=== PATIENT | male | born 1965 | race Caucasian/White ===

== ENCOUNTER 2018-10-24 17:52 | Emergency (ER) | payer MEDICAID ==
[~2018-10-24] VITALS: Ht 165.1 cm; Wt 103.0 kg
[~2018-10-24 17:52] MED LIST: AZIT250T PO
[2018-10-24] MEDS ORDERED: normal saline 1000ML IV soln IVB ONE (19:45)
[2018-10-24 20:22] VITALS: BP 137/88
[2018-10-24 20:27] LABS: BASOPHILS # (AUTO) 0.1 X10'3 (0-0.2); EOSINOPHILS # (AUTO) 0.1 X10'3 (0-0.9); LYMPHOCYTES # (AUTO) 1.9 X10'3 (1.1-4.8); MONOCYTES # (AUTO) 0.8 X10'3 (0-0.9)
[2018-10-24 20:29] LABS: BASOPHILS % (AUTO) 1.5 % (0-1); EOSINOPHILS % (AUTO) 0.8 % (0-6); HEMATOCRIT 48.7 % (42.0-52.0); HEMOGLOBIN 16.1 g/dl (14.0-17.9); LYMPHOCYTES % (AUTO) 22.5 % (21-51); MEAN CORPUSCULAR HEMOGLOBIN 28.2 PG (27.0-31.0); MEAN CORPUSCULAR VOLUME 85.4 FL (78-98); MEAN PLATELET VOLUME 8.7 FL (7.4-10.4); MONOCYTES % (AUTO) 9.3 % (2-12); NEUTROPHILS # (AUTO) 5.6 X10'3 (1.8-7.7); NEUTROPHILS % (AUTO) 65.9 % (42-75); PLATELET COUNT 194 X10'3 (140-440); RED BLOOD COUNT 5.71 X10'6 (4.70-6.10); RED CELL DISTRIBUTION WIDTH 13.7 % (11.5-14.5); WHITE BLOOD COUNT 8.5 X10'3 (4.5-11.0)
[2018-10-24 20:34] LABS: ALANINE AMINOTRANSFERASE 26 U/L (12-78); ALBUMIN 3.9 G/DL (3.4-5.0); ALBUMIN/GLOBULIN RATIO 0.9 (1.1-1.5); ALKALINE PHOSPHATASE 70 IU/L (46-116); ANION GAP 8 (8-16); ASPARTATE AMINO TRANSFERASE 21 U/L (10-37); BILIRUBIN,TOTAL 0.7 MG/DL (0.1-1.0); BLOOD UREA NITROGEN 16 MG/DL (7-18); BUN/CREATININE RATIO 9.5 (5.4-32.0); CALCIUM 9.3 MG/DL (8.5-10.1); CHLORIDE 105 MMOL/L (99-107); CREATININE 1.68 MG/DL (0.60-1.10); ETHANOL < 0.010 GM/DL (0.0-0.010); GLUCOSE 90 MG/DL (70-104); POTASSIUM 4.8 MMOL/L (3.5-5.1); SODIUM 141 MMOL/L (135-145); TOTAL CARBON DIOXIDE 28.4 MMOL/L (24-32); TOTAL PROTEIN 8.2 G/DL (6.4-8.2); eGFR 43 ML/MIN
--- NOTE | 2018-10-24 20:52 | NUR ---
pt iv fluid finshed,iv site flushed with 10 cc n.s.pt denies any concern.
[2018-10-24 21:53] LABS: CLARITY,URINE CLEAR (Clear); COLOR,URINE YELLOW (Yellow); GLUCOSE, URINE NEGATIVE (Neg); KETONES,URINE TRACE mg/dl (Neg); LEUKOCYTE ESTERASE ,URINE NEGATIVE (Neg); NITRITES, URINE NEGATIVE (Neg); OCCULT BLOOD,URINE NEGATIVE (Neg); PH,URINE 5.5 (4.8-8.0); PROTEIN,URINE NEGATIVE (Neg); UROBILINOGEN,URINE 0.2 E.U/dL (0.2-1.0)
[2018-10-24 21:55] LABS: UA COLLECTION TYPE CLN CATCH MIDSTREAM
[2018-10-24 21:58] LABS: URINE AMPHETAMINE SCREEN NEGATIVE (Neg); URINE BARBITUATE SCREEN NEGATIVE (Neg); URINE BENZODIAZEPINES SCREEN NEGATIVE (Neg); URINE CANNABINOID SCREEN NEGATIVE (Neg); URINE COCAINE SCREEN NEGATIVE (Neg); URINE METHADONE SCREEN NEGATIVE (Neg); URINE OPIATE SCREEN NEGATIVE (Neg); URINE PHENCYCLIDINE SCREEN NEGATIVE (Neg)
== END 2018-10-24 22:11 | disposition home or self-care (01) ==
LOC: ER 17:52
DX: R55 Syncope and collapse (principal); E78.00 Pure hypercholesterolemia, unspecified; I10 Essential (primary) hypertension; J44.9 Chronic obstructive pulmonary disease, unspecified; G89.29 Other chronic pain; F41.9 Anxiety disorder, unspecified; Z56.0 Unemployment, unspecified; Z98.890 Other specified postprocedural states; Z88.0 Allergy status to penicillin; Z88.8 Allergy status to other drugs, medicaments and biological substances; Z79.2 Long term (current) use of antibiotics
CPT/HCPCS: 36415; 80053; 80305; 80320; 81003; 85025; 96360; 99283; J7030

== ENCOUNTER 2019-04-25 18:09 | Emergency (ER) | payer MEDICAID ==
[~2019-04-25] VITALS: Ht 165.1 cm; Wt 107.8 kg
[2019-04-25 18:12] VITALS: BP 149/93
[2019-04-25] MEDS ORDERED: SULF1TAB49 PO (19:09)
[2019-04-25] MEDS ORDERED: ketorolac tromethamine 15mg/ml inj. IM ONE (19:10)
[2019-04-25] MEDS ORDERED: TETanus/Pertussis (Acell)/Diphther VAC/PF (Tdap-Adult) 0.5ml syringe IMVAC ONE (19:15)
== END 2019-04-25 19:55 | disposition home or self-care (01) ==
LOC: ER 18:10
DX: S90.862A Insect bite (nonvenomous), left foot, initial encounter (principal); L03.116 Cellulitis of left lower limb; E78.00 Pure hypercholesterolemia, unspecified; I10 Essential (primary) hypertension; J44.9 Chronic obstructive pulmonary disease, unspecified; F41.9 Anxiety disorder, unspecified; Z90.49 Acquired absence of other specified parts of digestive tract; Z98.890 Other specified postprocedural states; Z72.89 Other problems related to lifestyle; Z56.0 Unemployment, unspecified; Z88.0 Allergy status to penicillin; Z88.8 Allergy status to other drugs, medicaments and biological substances; Z79.899 Other long term (current) drug therapy; W57.XXXA Bitten or stung by nonvenomous insect and other nonvenomous arthropods, initial encounter; Y93.89 Activity, other specified; Y92.89 Other specified places as the place of occurrence of the external cause; Y99.8 Other external cause status
CPT/HCPCS: 90471; 90715; 96372; 99284; J1885

== ENCOUNTER 2019-07-10 20:19 | Emergency (ER) | payer MEDICAID ==
[~2019-07-10] VITALS: Ht 165.1 cm; Wt 90.9 kg
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
[2019-07-10] MEDS ORDERED: ketorolac tromethamine 15mg/ml inj. IM ONE (20:40)
[2019-07-10 21:33] VITALS: BP 114/89
== END 2019-07-10 21:36 | disposition home or self-care (01) ==
LOC: ER 20:20
DX: M25.572 Pain in left ankle and joints of left foot (principal); M54.5 Low back pain; M25.562 Pain in left knee; M25.561 Pain in right knee; M25.522 Pain in left elbow; E78.00 Pure hypercholesterolemia, unspecified; I10 Essential (primary) hypertension; J44.9 Chronic obstructive pulmonary disease, unspecified; G89.29 Other chronic pain; F41.9 Anxiety disorder, unspecified; Z90.49 Acquired absence of other specified parts of digestive tract; Z98.890 Other specified postprocedural states; Z56.0 Unemployment, unspecified; Z88.0 Allergy status to penicillin; Z88.8 Allergy status to other drugs, medicaments and biological substances; Z79.2 Long term (current) use of antibiotics
CPT/HCPCS: 73610; 96372; 99283; J1885

== ENCOUNTER 2019-08-10 21:54 | Emergency (ER) | payer MEDICAID ==
[~2019-08-10] VITALS: Ht 317.5 cm; Wt 90.9 kg
[2019-08-10 22:04] VITALS: BP 155/98
[2019-08-10] MEDS ORDERED: ondansetron 4mg rapidly disintigrating tab PO ONE (22:40)
[2019-08-10] MEDS ORDERED: HYDROcodone/acetaminophen 5mg/325mg tablet PO ONE (22:40)
[2019-08-10] MEDS ORDERED: ketorolac tromethamine 15mg/ml inj. IM ONE (22:45)
[2019-08-10] MEDS ORDERED: IBUP-1984 PO (23:32)
== END 2019-08-11 | disposition home or self-care (01) ==
LOC: ER 21:54
DX: M25.512 Pain in left shoulder (principal); M25.522 Pain in left elbow; E78.00 Pure hypercholesterolemia, unspecified; I10 Essential (primary) hypertension; J44.9 Chronic obstructive pulmonary disease, unspecified; G89.29 Other chronic pain; Z56.0 Unemployment, unspecified; Z90.49 Acquired absence of other specified parts of digestive tract; Z98.890 Other specified postprocedural states; Z88.8 Allergy status to other drugs, medicaments and biological substances; Z88.0 Allergy status to penicillin
CPT/HCPCS: 73030; 73080; 96372; 99284; J1885

== ENCOUNTER 2019-09-15 18:14 | Emergency (ER) | payer MEDICAID ==
[~2019-09-15] VITALS: Ht 165.1 cm; Wt 102.0 kg
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
[2019-09-15] MEDS ORDERED: normal saline 1000ML IV soln IVB ONE (19:40)
[2019-09-15] MEDS ORDERED: ketorolac trometh. 30mg/ml inj. IM ONE (20:15)
[2019-09-15] MEDS ORDERED: ketorolac tromethamine 15mg/ml inj. IM ONE (20:15)
[2019-09-15 20:21] LABS: BASOPHILS # (AUTO) 0.1 X10'3 (0-0.2); MEAN CORPUSCULAR HEMOGLOBIN 29.3 PG (27.0-31.0); MONOCYTES # (AUTO) 0.5 X10'3 (0-0.9)
[2019-09-15 20:23] LABS: BASOPHILS % (AUTO) 0.8 % (0-1); EOSINOPHILS # (AUTO) 0.1 X10'3 (0-0.9); EOSINOPHILS % (AUTO) 0.7 % (0-6); HEMATOCRIT 44.4 % (42.0-52.0); HEMOGLOBIN 14.8 g/dl (14.0-17.9); LYMPHOCYTES # (AUTO) 1.4 X10'3 (1.1-4.8); LYMPHOCYTES % (AUTO) 17.4 % (21-51); MEAN CORPUSCULAR HGB CONC 33.4 g/dL (33.0-36.5); MEAN CORPUSCULAR VOLUME 87.9 FL (78-98); MEAN PLATELET VOLUME 8.6 FL (7.4-10.4); MONOCYTES % (AUTO) 5.8 % (2-12); NEUTROPHILS % (AUTO) 75.3 % (42-75); PLATELET COUNT 230 X10'3 (140-440); RED BLOOD COUNT 5.05 X10'6 (4.70-6.10); RED CELL DISTRIBUTION WIDTH 13.5 % (11.5-14.5)
[2019-09-15 20:45] LABS: ALANINE AMINOTRANSFERASE 17 U/L (12-78); ALBUMIN 3.6 G/DL (3.4-5.0); ALBUMIN/GLOBULIN RATIO 0.8 (1.1-1.5); ALKALINE PHOSPHATASE 73 IU/L (46-116); ANION GAP 9 (8-16); ASPARTATE AMINO TRANSFERASE 13 U/L (10-37); BILIRUBIN,TOTAL 0.3 MG/DL (0.1-1.0); BLOOD UREA NITROGEN 11 MG/DL (7-18); BUN/CREATININE RATIO 7.4 (5.4-32.0); CALCIUM 9.1 MG/DL (8.5-10.1); CHLORIDE 110 MMOL/L (99-107); CREATININE 1.49 MG/DL (0.60-1.10); GLUCOSE 114 MG/DL (70-104); POTASSIUM 4.9 MMOL/L (3.5-5.1); SODIUM 143 MMOL/L (135-145); TOTAL CARBON DIOXIDE 24.1 MMOL/L (24-32); TOTAL PROTEIN 8.1 G/DL (6.4-8.2); eGFR 49 ML/MIN
[2019-09-15 21:17] VITALS: BP 139/91
== END 2019-09-15 21:50 | disposition home or self-care (01) ==
LOC: ER 18:14
DX: S09.90XA Unspecified injury of head, initial encounter (principal); E86.0 Dehydration; R55 Syncope and collapse; M54.2 Cervicalgia; E78.00 Pure hypercholesterolemia, unspecified; I10 Essential (primary) hypertension; J44.9 Chronic obstructive pulmonary disease, unspecified; F41.9 Anxiety disorder, unspecified; F20.9 Schizophrenia, unspecified; G89.29 Other chronic pain; Z90.49 Acquired absence of other specified parts of digestive tract; Z98.890 Other specified postprocedural states; Z56.0 Unemployment, unspecified; Z88.0 Allergy status to penicillin; Z88.8 Allergy status to other drugs, medicaments and biological substances; Z79.899 Other long term (current) drug therapy; V87.8XXA Person injured in other specified noncollision transport accidents involving motor vehicle (traffic), initial encounter; Y93.89 Activity, other specified; Y92.488 Other paved roadways as the place of occurrence of the external cause; Y99.8 Other external cause status
CPT/HCPCS: 36415; 72040; 80053; 85025; 93005; 96360; 96372; 99285; J1885; J7030

== ENCOUNTER 2019-12-13 19:40 | Emergency (ER) | payer MEDICAID ==
[~2019-12-13] VITALS: Ht 165.1 cm; Wt 90.9 kg
[2019-12-13] MEDS ORDERED: ketorolac tromethamine 15mg/ml inj. IM ONE (20:30)
[2019-12-13] MEDS ORDERED: cyclobenzaprine 10mg tablet PO ONE (20:30)
[2019-12-13] MEDS ORDERED: IBUP-1984 PO (20:34)
[2019-12-13] MEDS ORDERED: ORPH100T2 PO (20:34)
[2019-12-13 21:02] VITALS: BP 129/89
== END 2019-12-13 21:04 | disposition home or self-care (01) ==
LOC: ER 19:40
DX: G89.29 Other chronic pain (principal); M25.512 Pain in left shoulder; E78.00 Pure hypercholesterolemia, unspecified; I10 Essential (primary) hypertension; J44.9 Chronic obstructive pulmonary disease, unspecified; F41.9 Anxiety disorder, unspecified; F20.9 Schizophrenia, unspecified; Z90.49 Acquired absence of other specified parts of digestive tract; Z98.890 Other specified postprocedural states; Z56.0 Unemployment, unspecified; Z88.0 Allergy status to penicillin; Z88.8 Allergy status to other drugs, medicaments and biological substances; Z79.2 Long term (current) use of antibiotics; Z79.899 Other long term (current) drug therapy
CPT/HCPCS: 96372; 99283; J1885

== ENCOUNTER 2020-04-27 09:38 | Emergency (ER) | payer MEDICAID ==
[~2020-04-27] VITALS: Ht 165.1 cm; Wt 125.0 kg
[~2020-04-27 09:38] MED LIST changes: +ORPH100T2 PO
[2020-04-27 09:48] VITALS: BP 154/97
--- NOTE | 2020-04-27 10:03 | NUR ---
TO XRAY VIA WHEELCHAIR
[2020-04-27] MEDS ORDERED: NAPR-56 PO (10:17)
[2020-04-27] MEDS ORDERED: DICL100G15 TOP (10:17)
== END 2020-04-27 10:48 | disposition home or self-care (01) ==
LOC: ER 09:38
DX: M17.0 Bilateral primary osteoarthritis of knee (principal); G89.29 Other chronic pain; E78.00 Pure hypercholesterolemia, unspecified; I10 Essential (primary) hypertension; J44.9 Chronic obstructive pulmonary disease, unspecified; Z88.0 Allergy status to penicillin; Z88.8 Allergy status to other drugs, medicaments and biological substances; Z91.013 Allergy to seafood; Z79.2 Long term (current) use of antibiotics; Z79.899 Other long term (current) drug therapy; Z90.49 Acquired absence of other specified parts of digestive tract; Z98.890 Other specified postprocedural states; Z56.0 Unemployment, unspecified
CPT/HCPCS: 73564; 99284

== ENCOUNTER 2020-07-28 08:28 | Emergency (ER) | payer MEDICAID ==
[~2020-07-28] VITALS: Ht 165.1 cm; Wt 104.5 kg
[~2020-07-28 08:28] MED LIST changes: +DICL100G15 TOP
[2020-07-28] MEDS ORDERED: orphenadrine citrate 60mg/2ml inj. IM ONE (08:35)
[2020-07-28] MEDS ORDERED: ketorolac trometh inj. 60 MG/2 ML VIAL IM ONE (08:35)
[2020-07-28] MEDS ORDERED: ondansetron 4mg rapidly disintigrating tab PO ONE (08:35)
[2020-07-28] MEDS ORDERED: acetaminophen 325mg tablet PO ONE (08:35)
[2020-07-28] MEDS ORDERED: HYDROcodone/acetaminophen 5mg/325mg tablet PO ONE (08:35)
[2020-07-28] MEDS ORDERED: ACET-1025 PO (09:28)
[2020-07-28] MEDS ORDERED: MELO-100 PO (09:28)
[2020-07-28] MEDS ORDERED: HYDR-3965 PO (09:28)
[2020-07-28] MEDS ORDERED: CYCL-1 PO (09:28)
[2020-07-28 10:48] VITALS: BP 153/88
== END 2020-07-28 10:51 | disposition home or self-care (01) ==
LOC: ER 08:29
DX: M25.551 Pain in right hip (principal); E78.00 Pure hypercholesterolemia, unspecified; I10 Essential (primary) hypertension; J44.9 Chronic obstructive pulmonary disease, unspecified; G89.29 Other chronic pain; F41.9 Anxiety disorder, unspecified; F20.9 Schizophrenia, unspecified; Z90.49 Acquired absence of other specified parts of digestive tract; Z98.890 Other specified postprocedural states; Z56.0 Unemployment, unspecified; Z88.0 Allergy status to penicillin; Z88.8 Allergy status to other drugs, medicaments and biological substances; Z79.2 Long term (current) use of antibiotics; Z79.899 Other long term (current) drug therapy
CPT/HCPCS: 96372; 99284; J1885; J2360

== ENCOUNTER 2020-08-07 07:38 | Emergency (ER) | payer MEDICAID ==
[~2020-08-07] VITALS: Ht 165.1 cm; Wt 125.0 kg
[~2020-08-07 07:38] MED LIST changes: +CYCL-1 PO; +HYDR-3965 PO; +MELO-100 PO
[2020-08-07] MEDS ORDERED: acetaminophen 325mg tablet PO ONE (07:50)
== END 2020-08-07 08:03 | disposition home or self-care (01) ==
LOC: ER 07:39
DX: M79.661 Pain in right lower leg (principal); M79.662 Pain in left lower leg; R11.10 Vomiting, unspecified; E78.00 Pure hypercholesterolemia, unspecified; I10 Essential (primary) hypertension; G89.29 Other chronic pain; F41.9 Anxiety disorder, unspecified; F20.9 Schizophrenia, unspecified; Z59.0 Homelessness; Z90.49 Acquired absence of other specified parts of digestive tract; Z98.890 Other specified postprocedural states; Z56.0 Unemployment, unspecified; Z88.8 Allergy status to other drugs, medicaments and biological substances; Z88.0 Allergy status to penicillin; Z79.899 Other long term (current) drug therapy
CPT/HCPCS: 99283

== ENCOUNTER 2020-08-08 02:22 | Emergency (ER) | payer MEDICAID ==
[~2020-08-08] VITALS: Ht 165.1 cm; Wt 125.0 kg
[2020-08-08 02:24] VITALS: BP 135/92
[2020-08-08] MEDS ORDERED: ibuprofen 200mg tablet PO ONE (03:35)
[2020-08-08] MEDS ORDERED: acetaminophen 325mg tablet PO ONE (03:35)
== END 2020-08-08 04:01 | disposition home or self-care (01) ==
LOC: ER 02:22
DX: S80.01XA Contusion of right knee, initial encounter (principal); R07.89 Other chest pain; E78.00 Pure hypercholesterolemia, unspecified; J44.9 Chronic obstructive pulmonary disease, unspecified; G89.29 Other chronic pain; Z90.49 Acquired absence of other specified parts of digestive tract; Z98.890 Other specified postprocedural states; Z56.0 Unemployment, unspecified; Z59.0 Homelessness; Z79.2 Long term (current) use of antibiotics; Z79.899 Other long term (current) drug therapy; Z88.0 Allergy status to penicillin; Z88.8 Allergy status to other drugs, medicaments and biological substances; Z91.013 Allergy to seafood; Y04.0XXA Assault by unarmed brawl or fight, initial encounter; Y93.89 Activity, other specified; Y92.89 Other specified places as the place of occurrence of the external cause; Y99.8 Other external cause status
CPT/HCPCS: 99283

== ENCOUNTER 2020-08-08 16:31 | Emergency (ER) | payer MEDICAID ==
[~2020-08-08] VITALS: Ht 165.1 cm; Wt 97.7 kg
[2020-08-08] MEDS ORDERED: normal saline 1000ml 1,000 ML IV ONE (17:35)
[2020-08-08 18:16] LABS: BASOPHILS # (AUTO) 0.1 X10'3 (0-0.2); HEMATOCRIT 44.1 % (42.0-52.0); HEMOGLOBIN 14.7 g/dl (14.0-17.9)
[2020-08-08 18:18] LABS: BASOPHILS % (AUTO) 1.1 % (0-1); EOSINOPHILS # (AUTO) 0.1 X10'3 (0-0.9); EOSINOPHILS % (AUTO) 0.9 % (0-6); LYMPHOCYTES % (AUTO) 23.8 % (21-51); MEAN CORPUSCULAR HEMOGLOBIN 28.4 PG (27.0-31.0); MEAN CORPUSCULAR HGB CONC 33.2 g/dL (33.0-36.5); MEAN CORPUSCULAR VOLUME 85.4 FL (78-98); MEAN PLATELET VOLUME 9.6 FL (7.4-10.4); MONOCYTES % (AUTO) 11.6 % (2-12); NEUTROPHILS # (AUTO) 5.2 X10'3 (1.8-7.7); NEUTROPHILS % (AUTO) 62.6 % (42-75); PLATELET COUNT 207 X10'3 (140-440); RED BLOOD COUNT 5.17 X10'6 (4.70-6.10); WHITE BLOOD COUNT 8.3 X10'3 (4.5-11.0)
[2020-08-08] MEDS ORDERED: proCHLORperazine 10 MG/2 ml inj IV ONE (18:45)
[2020-08-08 19:24] VITALS: BP 142/86
[2020-08-08 19:36] LABS: ALANINE AMINOTRANSFERASE 16 U/L (12-78); ALBUMIN/GLOBULIN RATIO 0.8 (1.1-1.5); ALKALINE PHOSPHATASE 82 IU/L (46-116); ANION GAP 7 (8-16); ASPARTATE AMINO TRANSFERASE 15 U/L (10-37); BILIRUBIN,TOTAL 0.4 MG/DL (0.1-1.0); BLOOD UREA NITROGEN 16 MG/DL (7-18); BUN/CREATININE RATIO 10.3 (5.4-32.0); CALCIUM 8.4 MG/DL (8.5-10.1); CHLORIDE 106 MMOL/L (99-107); CREATININE 1.56 MG/DL (0.60-1.10); GLUCOSE 93 MG/DL (70-104); POTASSIUM 4.3 MMOL/L (3.5-5.1); SODIUM 140 MMOL/L (135-145); TOTAL CARBON DIOXIDE 26.6 MMOL/L (24-32); TOTAL PROTEIN 6.8 G/DL (6.4-8.2); eGFR 46 ML/MIN
== END 2020-08-08 21:00 | disposition home or self-care (01) ==
LOC: ER 16:31
DX: T67.5XXA Heat exhaustion, unspecified, initial encounter (principal); E78.00 Pure hypercholesterolemia, unspecified; I10 Essential (primary) hypertension; J44.9 Chronic obstructive pulmonary disease, unspecified; G89.29 Other chronic pain; Z90.49 Acquired absence of other specified parts of digestive tract; Z56.0 Unemployment, unspecified; Z59.0 Homelessness; Z88.0 Allergy status to penicillin; Z88.8 Allergy status to other drugs, medicaments and biological substances; Z91.013 Allergy to seafood; Z79.2 Long term (current) use of antibiotics; Z79.899 Other long term (current) drug therapy; X30.XXXA Exposure to excessive natural heat, initial encounter; Y93.89 Activity, other specified; Y92.832 Beach as the place of occurrence of the external cause; Y99.8 Other external cause status
CPT/HCPCS: 36415; 71045; 80053; 83735; 83880; 84484; 85025; 93005; 96361; 96374; 99285; J0780; J7030

== ENCOUNTER 2020-09-24 20:40 | Emergency (ER) | payer MEDICAID ==
[~2020-09-24] VITALS: Ht 165.1 cm; Wt 125.0 kg
[~2020-09-24 20:40] MED LIST changes: -HYDR-3965 PO
[2020-09-24 20:44] VITALS: BP 156/101
== END 2020-09-24 21:59 | disposition home or self-care (01) ==
LOC: ER 20:40
DX: S56.911A Strain of unspecified muscles, fascia and tendons at forearm level, right arm, initial encounter (principal); M79.601 Pain in right arm; E78.00 Pure hypercholesterolemia, unspecified; I10 Essential (primary) hypertension; J44.9 Chronic obstructive pulmonary disease, unspecified; G89.29 Other chronic pain; F41.9 Anxiety disorder, unspecified; F20.9 Schizophrenia, unspecified; Z90.49 Acquired absence of other specified parts of digestive tract; Z98.890 Other specified postprocedural states; Z56.0 Unemployment, unspecified; Z59.0 Homelessness; Z88.0 Allergy status to penicillin; Z88.8 Allergy status to other drugs, medicaments and biological substances; Z79.2 Long term (current) use of antibiotics; Z79.899 Other long term (current) drug therapy; W50.2XXA Accidental twist by another person, initial encounter; Y93.89 Activity, other specified; Y92.89 Other specified places as the place of occurrence of the external cause; Y99.8 Other external cause status
CPT/HCPCS: 73030; 73080; 73110; 99284

== ENCOUNTER 2020-10-23 19:20 | Emergency (ER) | payer MEDICAID ==
[~2020-10-23] VITALS: Ht 165.1 cm; Wt 98.7 kg
[2020-10-23 20:43] LABS: BASOPHILS # (AUTO) 0.1 X10'3 (0-0.2); BASOPHILS % (AUTO) 0.5 % (0-1); EOSINOPHILS % (AUTO) 0.3 % (0-6); HEMATOCRIT 48.9 % (42.0-52.0); LYMPHOCYTES # (AUTO) 1.2 X10'3 (1.1-4.8); LYMPHOCYTES % (AUTO) 11.2 % (21-51); MEAN CORPUSCULAR HEMOGLOBIN 27.8 PG (27.0-31.0); MEAN CORPUSCULAR HGB CONC 32.7 g/dL (33.0-36.5); MEAN PLATELET VOLUME 8.9 FL (7.4-10.4); MONOCYTES # (AUTO) 0.9 X10'3 (0-0.9); NEUTROPHILS # (AUTO) 8.9 X10'3 (1.8-7.7); PLATELET COUNT 233 X10'3 (140-440); RED BLOOD COUNT 5.75 X10'6 (4.70-6.10); RED CELL DISTRIBUTION WIDTH 13.9 % (11.5-14.5); WHITE BLOOD COUNT 11.1 X10'3 (4.5-11.0)
[2020-10-23 20:44] LABS: CLARITY,URINE CLEAR (Clear); COLOR,URINE YELLOW (Yellow); GLUCOSE, URINE NEGATIVE (Neg); KETONES,URINE TRACE mg/dl (Neg); LEUKOCYTE ESTERASE ,URINE NEGATIVE (Neg); NITRITES, URINE NEGATIVE (Neg); OCCULT BLOOD,URINE NEGATIVE (Neg); PROTEIN,URINE 100 mg/dl (Neg)
[2020-10-23 20:53] LABS: UA COLLECTION TYPE CLN CATCH MIDSTREAM
[2020-10-23 20:54] LABS: BACTERIA,URINE FEW /HPF (Neg); MUCUS STRANDS FEW /LPF (Neg); RBC,URINE 0-2 /HPF (0-2); SQUAMOUS EPITHELIAL CELL,UR FEW /LPF (FEW); WBC,URINE NONE SEEN /HPF (0-4)
[2020-10-23 20:55] LABS: HYALINE CASTS 0-3 /LPF (NEGATIVE)
[2020-10-23 20:59] LABS: ALANINE AMINOTRANSFERASE 22 U/L (12-78); ALBUMIN 4.2 G/DL (3.4-5.0); ALBUMIN/GLOBULIN RATIO 0.9 (1.1-1.5); ALKALINE PHOSPHATASE 81 IU/L (46-116); ANION GAP 11 (8-16); ASPARTATE AMINO TRANSFERASE 17 U/L (10-37); BILIRUBIN,TOTAL 0.9 MG/DL (0.1-1.0); BLOOD UREA NITROGEN 11 MG/DL (7-18); BUN/CREATININE RATIO 5.7 (5.4-32.0); CALCIUM 9.1 MG/DL (8.5-10.1); CHLORIDE 105 MMOL/L (99-107); CREATININE 1.94 MG/DL (0.60-1.10); GLUCOSE 117 MG/DL (70-104); POTASSIUM 4.2 MMOL/L (3.5-5.1); SODIUM 142 MMOL/L (135-145); TOTAL CARBON DIOXIDE 26.5 MMOL/L (24-32); eGFR 36 ML/MIN
[2020-10-23 21:07] LABS: LIPASE 116 U/L (73-393)
[2020-10-24] MEDS ORDERED: dexamethasone sod phosphate 10mg/ml inj PO STA (01:34)
[2020-10-24] MEDS ORDERED: ketorolac tromethamine 15mg/ml inj. IM ONE (01:35)
[2020-10-24] MEDS ORDERED: ALBU8.5H17 IH (01:36)
[2020-10-24 02:04] VITALS: BP 130/97
== END 2020-10-24 02:05 | disposition home or self-care (01) ==
LOC: ER 19:20
DX: M79.10 Myalgia, unspecified site (principal); R06.02 Shortness of breath; R06.89 Other abnormalities of breathing; E78.00 Pure hypercholesterolemia, unspecified; I10 Essential (primary) hypertension; J44.9 Chronic obstructive pulmonary disease, unspecified; G89.29 Other chronic pain; Z98.890 Other specified postprocedural states; Z90.49 Acquired absence of other specified parts of digestive tract; Z59.0 Homelessness; Z56.0 Unemployment, unspecified; Z88.8 Allergy status to other drugs, medicaments and biological substances; Z88.0 Allergy status to penicillin; Z79.2 Long term (current) use of antibiotics; Z79.899 Other long term (current) drug therapy
CPT/HCPCS: 36415; 71045; 80053; 81001; 83690; 83880; 84484; 85025; 93005; 96372; 99285; J1100; J1885

== ENCOUNTER 2020-10-27 12:00 | Emergency (ER) | payer MEDICAID ==
[~2020-10-27] VITALS: Ht 166.4 cm; Wt 125.0 kg
[~2020-10-27 12:00] MED LIST changes: +ALBU8.5H17 IH
[2020-10-27 12:05] VITALS: BP 124/74
== END 2020-10-27 20:06 | disposition left against medical advice (07) ==
LOC: ER 12:00
DX: T63.441A Toxic effect of venom of bees, accidental (unintentional), initial encounter (principal); Z53.21 Procedure and treatment not carried out due to patient leaving prior to being seen by health care provider; X58.XXXA Exposure to other specified factors, initial encounter; Y93.9 Activity, unspecified; Y92.9 Unspecified place or not applicable; Y99.9 Unspecified external cause status

== ENCOUNTER → 2020-11-01 | Emergency (ER) | payer MEDICAID ==
[~2020-11-01] VITALS: Ht 165.1 cm; Wt 125.0 kg
[~2020-11-01] MED LIST changes: +IBUP-1984 PO; +NAPR-56 PO; +PRED20TA PO
[2020-11-01 14:21] VITALS: BP 131/85
== END | disposition home or self-care (01) ==
LOC: ER 13:40
DX: M10.9 Gout, unspecified (principal); M81.0 Age-related osteoporosis without current pathological fracture; E78.00 Pure hypercholesterolemia, unspecified; I10 Essential (primary) hypertension; J44.9 Chronic obstructive pulmonary disease, unspecified; G89.29 Other chronic pain; Z90.49 Acquired absence of other specified parts of digestive tract; Z56.0 Unemployment, unspecified; Z59.0 Homelessness; Z98.890 Other specified postprocedural states; Z88.0 Allergy status to penicillin; Z88.8 Allergy status to other drugs, medicaments and biological substances; Z79.2 Long term (current) use of antibiotics; Z79.899 Other long term (current) drug therapy
CPT/HCPCS: 99283

== ENCOUNTER 2020-11-14 00:38 | Emergency (ER) | payer MEDICAID ==
[~2020-11-14] VITALS: Ht 165.1 cm; Wt 125.0 kg
[~2020-11-14 00:38] MED LIST changes: -IBUP-1984 PO; -NAPR-56 PO; -PRED20TA PO
[2020-11-14] MEDS ORDERED: naproxen 500mg tablet PO ONE (04:30)
[2020-11-14] MEDS ORDERED: NAPR-56 PO (04:49)
[2020-11-14] MEDS ORDERED: CYCL-1 PO (04:49)
[2020-11-14] MEDS ORDERED: cyclobenzaprine 10mg tablet PO ONE (04:50)
[2020-11-14 05:07] VITALS: BP 136/82
== END 2020-11-14 05:09 | disposition home or self-care (01) ==
LOC: ER 00:38
DX: M54.5 Low back pain (principal); Z20.822 Contact with and (suspected) exposure to COVID-19; R11.2 Nausea with vomiting, unspecified; R06.02 Shortness of breath; E78.00 Pure hypercholesterolemia, unspecified; I10 Essential (primary) hypertension; J44.9 Chronic obstructive pulmonary disease, unspecified; G89.29 Other chronic pain; F17.200 Nicotine dependence, unspecified, uncomplicated; Z98.890 Other specified postprocedural states; Z98.49 Cataract extraction status, unspecified eye; Z56.0 Unemployment, unspecified; Z59.0 Homelessness; Z88.0 Allergy status to penicillin; Z88.8 Allergy status to other drugs, medicaments and biological substances; Z79.2 Long term (current) use of antibiotics; Z79.899 Other long term (current) drug therapy
CPT/HCPCS: 71045; 87635; 99284; C9803

== ENCOUNTER 2021-01-01 12:52 | Emergency (ER) | payer MEDICAID ==
[~2021-01-01] VITALS: Ht 167.6 cm; Wt 125.0 kg
[2021-01-01 12:57] VITALS: BP 112/73
[2021-01-01] MEDS ORDERED: ketorolac tromethamine 15mg/ml inj. IM ONE (15:45)
[2021-01-01] MEDS ORDERED: IBUP-1984 PO (16:58)
--- NOTE | 2021-01-01 17:10 | NUR ---
[facility] ETA [phone]
== END 2021-01-01 17:50 | disposition home or self-care (01) ==
LOC: ER 12:52
DX: M25.561 Pain in right knee (principal); R26.89 Other abnormalities of gait and mobility; E78.00 Pure hypercholesterolemia, unspecified; I10 Essential (primary) hypertension; G89.29 Other chronic pain; J44.9 Chronic obstructive pulmonary disease, unspecified; Z90.49 Acquired absence of other specified parts of digestive tract; Z98.890 Other specified postprocedural states; Z56.0 Unemployment, unspecified; Z59.00 Homelessness unspecified; Z88.0 Allergy status to penicillin; Z88.8 Allergy status to other drugs, medicaments and biological substances; Z79.2 Long term (current) use of antibiotics; Z79.899 Other long term (current) drug therapy
CPT/HCPCS: 29505; 73564; 93971; 96372; 99284; J1885

== ENCOUNTER 2021-01-14 19:56 | Emergency (ER) | payer MEDICAID ==
[~2021-01-14] VITALS: Ht 165.1 cm; Wt 107.5 kg
[2021-01-14 20:00] VITALS: BP 161/94
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
[2021-01-14] MEDS ORDERED: HYDROcodone/acetaminophen 5mg/325mg tablet PO ONE (20:40)
[2021-01-14] MEDS ORDERED: HYDR-3965 PO (20:40)
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
== END 2021-01-14 22:17 | disposition home or self-care (01) ==
LOC: EEVIPCON 19:57 → ER 19:57
DX: S80.01XA Contusion of right knee, initial encounter (principal); S70.01XA Contusion of right hip, initial encounter; R06.02 Shortness of breath; R05.9 Cough, unspecified; R10.84 Generalized abdominal pain; R11.2 Nausea with vomiting, unspecified; M25.561 Pain in right knee; M25.551 Pain in right hip; E78.00 Pure hypercholesterolemia, unspecified; I10 Essential (primary) hypertension; J44.9 Chronic obstructive pulmonary disease, unspecified; G89.29 Other chronic pain; F41.9 Anxiety disorder, unspecified; F20.9 Schizophrenia, unspecified; Z90.49 Acquired absence of other specified parts of digestive tract; Z98.890 Other specified postprocedural states; Z56.0 Unemployment, unspecified; Z59.00 Homelessness unspecified; Z88.0 Allergy status to penicillin; Z88.8 Allergy status to other drugs, medicaments and biological substances; Z79.2 Long term (current) use of antibiotics; Z79.899 Other long term (current) drug therapy; Y08.89XA Assault by other specified means, initial encounter; Y93.89 Activity, other specified; Y92.89 Other specified places as the place of occurrence of the external cause; Y99.8 Other external cause status
CPT/HCPCS: 99283

== ENCOUNTER 2021-01-17 13:30 | Emergency (ER) | payer MEDICAID ==
[~2021-01-17] VITALS: Ht 165.1 cm; Wt 108.5 kg
[~2021-01-17 13:30] MED LIST changes: +HYDR-3965 PO
[2021-01-17 14:41] VITALS: BP 138/84
[2021-01-17] MEDS ORDERED: IBUP-1984 PO (15:41)
== END 2021-01-17 16:10 | disposition home or self-care (01) ==
LOC: ER 13:32
DX: M54.2 Cervicalgia (principal); M25.571 Pain in right ankle and joints of right foot; E78.00 Pure hypercholesterolemia, unspecified; I10 Essential (primary) hypertension; J44.9 Chronic obstructive pulmonary disease, unspecified; G89.29 Other chronic pain; Z56.0 Unemployment, unspecified; Z59.00 Homelessness unspecified; Z90.49 Acquired absence of other specified parts of digestive tract; Z98.890 Other specified postprocedural states; Z88.0 Allergy status to penicillin; Z88.8 Allergy status to other drugs, medicaments and biological substances; Z79.2 Long term (current) use of antibiotics; Z79.899 Other long term (current) drug therapy; W19.XXXA Unspecified fall, initial encounter; Y93.89 Activity, other specified; Y92.89 Other specified places as the place of occurrence of the external cause; Y99.8 Other external cause status
CPT/HCPCS: 72125; 73610; 99284

== ENCOUNTER 2021-01-19 11:02 | Emergency (ER) | payer MEDICAID ==
[~2021-01-19] VITALS: Ht 165.1 cm; Wt 125.0 kg
[~2021-01-19 11:02] MED LIST changes: +IBUP-1984 PO
[2021-01-19 14:05] LABS: BASOPHILS % (AUTO) 0.6 % (0-1); EOSINOPHILS # (AUTO) 0.1 X10'3 (0-0.9); EOSINOPHILS % (AUTO) 0.9 % (0-6); HEMATOCRIT 43.4 % (42.0-52.0); HEMOGLOBIN 14.3 g/dl (14.0-17.9); LYMPHOCYTES # (AUTO) 1.4 X10'3 (1.1-4.8); LYMPHOCYTES % (AUTO) 17.1 % (21-51); MEAN CORPUSCULAR HEMOGLOBIN 27.8 PG (27.0-31.0); MEAN CORPUSCULAR VOLUME 84.4 FL (78-98); MEAN PLATELET VOLUME 8.6 FL (7.4-10.4); MONOCYTES # (AUTO) 0.5 X10'3 (0-0.9); NEUTROPHILS # (AUTO) 6.1 X10'3 (1.8-7.7); NEUTROPHILS % (AUTO) 75.4 % (42-75); PLATELET COUNT 256 X10'3 (140-440); RED BLOOD COUNT 5.14 X10'6 (4.70-6.10); RED CELL DISTRIBUTION WIDTH 13.9 % (11.5-14.5); WHITE BLOOD COUNT 8.1 X10'3 (4.5-11.0)
[2021-01-19 14:13] LABS: ALANINE AMINOTRANSFERASE 20 U/L (12-78); ALBUMIN 3.5 G/DL (3.4-5.0); ALBUMIN/GLOBULIN RATIO 0.8 (1.1-1.5); ALKALINE PHOSPHATASE 95 IU/L (46-116); ANION GAP 8 (8-16); ASPARTATE AMINO TRANSFERASE 15 U/L (10-37); BILIRUBIN,TOTAL 0.6 MG/DL (0.1-1.0); BLOOD UREA NITROGEN 10 MG/DL (7-18); BUN/CREATININE RATIO 7.3 (5.4-32.0); C-REACTIVE PROTEIN 0.75 MG/DL (0.0-0.5); CALCIUM 8.9 MG/DL (8.5-10.1); CHLORIDE 107 MMOL/L (99-107); CREATININE 1.37 MG/DL (0.60-1.10); GLUCOSE 108 MG/DL (70-104); POTASSIUM 4.4 MMOL/L (3.5-5.1); SODIUM 144 MMOL/L (135-145); TOTAL CARBON DIOXIDE 29.3 MMOL/L (24-32); eGFR 54 ML/MIN
== END 2021-01-19 17:35 | disposition home or self-care (01) ==
LOC: ER 11:03
DX: M19.90 Unspecified osteoarthritis, unspecified site (principal); E78.00 Pure hypercholesterolemia, unspecified; I10 Essential (primary) hypertension; J44.9 Chronic obstructive pulmonary disease, unspecified; G89.29 Other chronic pain; F20.9 Schizophrenia, unspecified; Z90.49 Acquired absence of other specified parts of digestive tract; Z98.890 Other specified postprocedural states; Z56.0 Unemployment, unspecified; Z59.00 Homelessness unspecified; Z88.8 Allergy status to other drugs, medicaments and biological substances; Z88.0 Allergy status to penicillin; Z79.2 Long term (current) use of antibiotics; Z79.899 Other long term (current) drug therapy
CPT/HCPCS: 36415; 73620; 80053; 84550; 85025; 86140; 99284

== ENCOUNTER 2021-03-09 20:19 | Emergency (ER) | payer MEDICAID ==
[~2021-03-09] VITALS: Ht 165.1 cm; Wt 125.0 kg
[~2021-03-09 20:19] MED LIST changes: -HYDR-3965 PO; -IBUP-1984 PO
[2021-03-09 20:58] LABS: BASOPHILS # (AUTO) 0.1 X10'3 (0-0.2); BASOPHILS % (AUTO) 1.4 % (0-1); EOSINOPHILS # (AUTO) 0.1 X10'3 (0-0.9); HEMATOCRIT 44.8 % (42.0-52.0); HEMOGLOBIN 14.7 g/dl (14.0-17.9); LYMPHOCYTES # (AUTO) 1.6 X10'3 (1.1-4.8); LYMPHOCYTES % (AUTO) 27.9 % (21-51); MEAN CORPUSCULAR HEMOGLOBIN 28.3 PG (27.0-31.0); MEAN CORPUSCULAR HGB CONC 32.9 g/dL (33.0-36.5); MEAN CORPUSCULAR VOLUME 86.2 FL (78-98); MONOCYTES # (AUTO) 0.5 X10'3 (0-0.9); NEUTROPHILS # (AUTO) 3.6 X10'3 (1.8-7.7); NEUTROPHILS % (AUTO) 61.7 % (42-75); PLATELET COUNT 196 X10'3 (140-440); RED BLOOD COUNT 5.19 X10'6 (4.70-6.10); RED CELL DISTRIBUTION WIDTH 14.2 % (11.5-14.5); WHITE BLOOD COUNT 5.8 X10'3 (4.5-11.0)
--- NOTE | 2021-03-09 21:13 | NUR ---
pt roomed. assumed care of pt.
[2021-03-09 21:16] LABS: ALBUMIN 3.7 G/DL (3.4-5.0); ALBUMIN/GLOBULIN RATIO 0.9 (1.1-1.5); ALKALINE PHOSPHATASE 91 IU/L (46-116); ANION GAP 7 (8-16); ASPARTATE AMINO TRANSFERASE 18 U/L (10-37); BILIRUBIN,TOTAL 0.4 MG/DL (0.1-1.0); BLOOD UREA NITROGEN 21 MG/DL (7-18); BUN/CREATININE RATIO 14.2 (5.4-32.0); CALCIUM 8.8 MG/DL (8.5-10.1); CHLORIDE 107 MMOL/L (99-107); CREATININE 1.48 MG/DL (0.60-1.10); GLUCOSE 124 MG/DL (70-104); POTASSIUM 3.9 MMOL/L (3.5-5.1); SODIUM 142 MMOL/L (135-145); TOTAL CARBON DIOXIDE 28.2 MMOL/L (24-32); TOTAL PROTEIN 7.9 G/DL (6.4-8.2); eGFR 49 ML/MIN
[2021-03-09 21:25] LABS: ALANINE AMINOTRANSFERASE < 6 U/L (12-78)
[2021-03-09] MEDS ORDERED: acetaminophen 325mg tablet PO ONE (22:10)
[2021-03-09] MEDS ORDERED: ketorolac trometh. 30mg/ml inj. IM ONE (22:10)
[2021-03-10 00:03] VITALS: BP 139/87
== END 2021-03-10 00:07 | disposition home or self-care (01) ==
LOC: ER 20:20
DX: R07.89 Other chest pain (principal); R20.0 Anesthesia of skin; E78.00 Pure hypercholesterolemia, unspecified; I10 Essential (primary) hypertension; J44.9 Chronic obstructive pulmonary disease, unspecified; G89.29 Other chronic pain; F41.9 Anxiety disorder, unspecified; F20.9 Schizophrenia, unspecified; Z90.49 Acquired absence of other specified parts of digestive tract; Z98.890 Other specified postprocedural states; Z56.0 Unemployment, unspecified; Z59.00 Homelessness unspecified; Z88.0 Allergy status to penicillin; Z79.2 Long term (current) use of antibiotics; Z79.899 Other long term (current) drug therapy
CPT/HCPCS: 36415; 71045; 80053; 83880; 84484; 85025; 93005; 96372; 99285; J1885

== ENCOUNTER 2021-05-11 14:04 | Emergency (ER) | payer MEDICAID ==
[~2021-05-11] VITALS: Ht 165.1 cm; Wt 125.0 kg
[2021-05-11 14:08] VITALS: BP 129/86
[2021-05-11] MEDS ORDERED: NAPR-56 PO (16:05)
== END 2021-05-11 16:20 | disposition home or self-care (01) ==
LOC: ER 14:05
DX: M79.18 Myalgia, other site (principal); E78.00 Pure hypercholesterolemia, unspecified; I10 Essential (primary) hypertension; J44.9 Chronic obstructive pulmonary disease, unspecified; G89.29 Other chronic pain; F41.9 Anxiety disorder, unspecified; F20.9 Schizophrenia, unspecified; Z90.49 Acquired absence of other specified parts of digestive tract; Z98.890 Other specified postprocedural states; Z56.0 Unemployment, unspecified; Z59.00 Homelessness unspecified; Z88.0 Allergy status to penicillin; Z88.8 Allergy status to other drugs, medicaments and biological substances; Z79.2 Long term (current) use of antibiotics; Z79.899 Other long term (current) drug therapy; V89.2XXA Person injured in unspecified motor-vehicle accident, traffic, initial encounter; Y93.89 Activity, other specified; Y92.89 Other specified places as the place of occurrence of the external cause; Y99.8 Other external cause status
CPT/HCPCS: 99282

== ENCOUNTER 2021-09-04 15:54 | Emergency (ER) | payer MEDICAID ==
[~2021-09-04] VITALS: Ht 165.1 cm; Wt 103.0 kg
[2021-09-04 15:57] VITALS: BP 150/96
[2021-09-04 17:52] LABS: ALANINE AMINOTRANSFERASE 23 U/L (12-78); ALBUMIN 3.8 G/DL (3.4-5.0); ALBUMIN/GLOBULIN RATIO 0.9 (1.1-1.5); ALKALINE PHOSPHATASE 84 IU/L (46-116); ANION GAP 9 (8-16); ASPARTATE AMINO TRANSFERASE 18 U/L (10-37); BASOPHILS % (AUTO) 0.6 % (0-1); BILIRUBIN,TOTAL 0.5 MG/DL (0.1-1.0); BLOOD UREA NITROGEN 20 MG/DL (7-18); BUN/CREATININE RATIO 11.8 (5.4-32.0); CALCIUM 8.8 MG/DL (8.5-10.1); CHLORIDE 108 MMOL/L (99-107); EOSINOPHILS # (AUTO) 0.1 X10'3 (0-0.9); EOSINOPHILS % (AUTO) 1.5 % (0-6); GLUCOSE 105 MG/DL (70-104); HEMATOCRIT 45.6 % (42.0-52.0); HEMOGLOBIN 15.2 g/dl (14.0-17.9); LYMPHOCYTES # (AUTO) 1.6 X10'3 (1.1-4.8); LYMPHOCYTES % (AUTO) 20.1 % (21-51); MEAN CORPUSCULAR HEMOGLOBIN 28.1 PG (27.0-31.0); MEAN CORPUSCULAR HGB CONC 33.3 g/dL (33.0-36.5); MEAN CORPUSCULAR VOLUME 84.5 FL (78-98); MEAN PLATELET VOLUME 7.8 FL (7.4-10.4); MONOCYTES # (AUTO) 0.6 X10'3 (0-0.9); MONOCYTES % (AUTO) 8.2 % (2-12); NEUTROPHILS # (AUTO) 5.5 X10'3 (1.8-7.7); NEUTROPHILS % (AUTO) 69.6 % (42-75); PLATELET COUNT 256 X10'3 (140-440); POTASSIUM 4.7 MMOL/L (3.5-5.1); RED CELL DISTRIBUTION WIDTH 13.7 % (11.5-14.5); SODIUM 143 MMOL/L (135-145); TOTAL CARBON DIOXIDE 26.5 MMOL/L (24-32); TOTAL PROTEIN 8.1 G/DL (6.4-8.2); WHITE BLOOD COUNT 7.8 X10'3 (4.5-11.0); eGFR 42 ML/MIN
[2021-09-04] MEDS ORDERED: acetaminophen 325mg tablet PO ONE (18:05)
[2021-09-04] MEDS ORDERED: LIDO700A32 TOP (18:07)
[2021-09-04] MEDS ORDERED: ACET325T58 PO (18:07)
[2021-09-04] MEDS ORDERED: ALBU18HF2 INH (18:07)
== END 2021-09-04 18:54 | disposition home or self-care (01) ==
LOC: ER 15:54
DX: I12.9 Hypertensive chronic kidney disease with stage 1 through stage 4 chronic kidney disease, or unspecified chronic kidney disease (principal); N18.9 Chronic kidney disease, unspecified; G89.29 Other chronic pain; M54.9 Dorsalgia, unspecified; F41.9 Anxiety disorder, unspecified; F20.9 Schizophrenia, unspecified; E78.00 Pure hypercholesterolemia, unspecified; J45.909 Unspecified asthma, uncomplicated; Z88.0 Allergy status to penicillin; Z88.8 Allergy status to other drugs, medicaments and biological substances; Z79.899 Other long term (current) drug therapy
CPT/HCPCS: 36415; 80053; 85025; 99283

== ENCOUNTER 2021-09-21 11:28 | Emergency (ER) | payer MEDICAID ==
[~2021-09-21] VITALS: Ht 165.1 cm; Wt 140.0 kg
[~2021-09-21 11:28] MED LIST changes: +ACET325T58 PO; +ALBU18HF2 INH; +LIDO700A32 TOP
[2021-09-21 11:42] VITALS: BP 125/85
[2021-09-21] MEDS ORDERED: ondansetron 4mg rapidly disintigrating tab PO ONE (13:15)
[2021-09-21] MEDS ORDERED: oxyCODONE IR 5mg (immed. release) tablet PO ONE (13:15)
== END 2021-09-21 14:49 | disposition home or self-care (01) ==
LOC: ER 11:28
DX: S93.401A Sprain of unspecified ligament of right ankle, initial encounter (principal); I10 Essential (primary) hypertension; J44.9 Chronic obstructive pulmonary disease, unspecified; G89.29 Other chronic pain; M54.50 Low back pain, unspecified; Z88.0 Allergy status to penicillin; Z88.5 Allergy status to narcotic agent; Z90.49 Acquired absence of other specified parts of digestive tract; Z56.0 Unemployment, unspecified; Z59.00 Homelessness unspecified; X58.XXXA Exposure to other specified factors, initial encounter; Y93.89 Activity, other specified; Y92.89 Other specified places as the place of occurrence of the external cause; Y99.8 Other external cause status
CPT/HCPCS: 73564; 73610; 73620; 99284; L4360

== ENCOUNTER 2023-06-30 06:01 | Emergency (ER) | payer MEDICAID, OTHER ==
[~2023-06-30] VITALS: Ht 167.6 cm; Wt 122.7 kg
[~2023-06-30 06:01] MED LIST changes: -ACET325T58 PO; -ORPH100T2 PO; +ORPH100T4 PO
[2023-06-30] MEDS: ipratropium/albuterol 3ml nebule NEB ONE (06:53)
[2023-06-30 06:55] VITALS: PULSE 101; RESP 22; O2SAT 94
[2023-06-30 07:04] VITALS: PULSE 98; RESP 22; O2SAT 99
[2023-06-30 08:31] LABS: BASOPHILS % (AUTO) 0.3 % (0-1); EOSINOPHILS % (AUTO) 0.3 % (0-6); HEMATOCRIT 45.3 % (42.0-52.0); HEMOGLOBIN 15.3 g/dl (14.0-17.9); LYMPHOCYTES # (AUTO) 1.8 X10'3 (1.1-4.8); LYMPHOCYTES % (AUTO) 16.9 % (21-51); MEAN CORPUSCULAR HGB CONC 33.8 g/dL (33.0-36.5); MEAN CORPUSCULAR VOLUME 85.8 FL (78-98); MONOCYTES # (AUTO) 0.8 X10'3 (0-0.9); MONOCYTES % (AUTO) 7.9 % (2-12); NEUTROPHILS # (AUTO) 7.7 X10'3 (1.8-7.7); NEUTROPHILS % (AUTO) 74.6 % (42-75); PLATELET COUNT 365 X10'3 (140-440); RED BLOOD COUNT 5.27 X10'6 (4.70-6.10); RED CELL DISTRIBUTION WIDTH 13.1 % (11.5-14.5); WHITE BLOOD COUNT 10.4 X10'3 (4.5-11.0)
[2023-06-30 09:08] LABS: ANION GAP 12 (8-16); BLOOD UREA NITROGEN 22 MG/DL (7-18); BUN/CREATININE RATIO 14.8 (10.0-20.0); CALCIUM 9.3 MG/DL (8.5-10.1); CHLORIDE 102 MMOL/L (99-107); CREATININE 1.49 MG/DL (0.60-1.10); GLUCOSE 112 MG/DL (70-104); POTASSIUM 4.2 MMOL/L (3.5-5.1); PRO BRAIN NATRIURETIC PEPTIDE 31 PG/ML (0-125); SODIUM 137 MMOL/L (135-145); TOTAL CARBON DIOXIDE 22.7 MMOL/L (24-32); eCRCL 48 ML/MIN; eGFR 48 ML/MIN
[2023-06-30] MEDS ORDERED: DOXY100C43 PO (09:38)
[2023-06-30] MEDS ORDERED: ALBU90AE INH (09:38)
[2023-06-30] MEDS ORDERED: PRED20TA PO (09:46)
[2023-06-30 09:49] VITALS: BP 131/91; PULSE 104; RESP 20; O2SAT 95
[2023-06-30] MEDS: predniSONE 20 mg tablet PO ONE (09:50)
== END 2023-06-30 10:06 ==
LOC: EEVIPCON 06:01 → ER 06:01
DX: J44.9 Chronic obstructive pulmonary disease, unspecified (principal); E78.00 Pure hypercholesterolemia, unspecified; I10 Essential (primary) hypertension; J45.909 Unspecified asthma, uncomplicated; F41.9 Anxiety disorder, unspecified; F20.9 Schizophrenia, unspecified; Z91.013 Allergy to seafood; Z88.8 Allergy status to other drugs, medicaments and biological substances; Z88.0 Allergy status to penicillin
CPT/HCPCS: 36415; 71045; 80048; 83880; 84145; 84484; 85025; 93005; 94640; 99285; J7512

== ENCOUNTER 2024-02-21 20:27 | Emergency (ER) | payer SELFPAY ==
[~2024-02-21] VITALS: Ht 165.1 cm; Wt 125.6 kg
[~2024-02-21 20:27] MED LIST changes: +ALBU90AE INH
[2024-02-21 20:37] VITALS: BP 133/84; PULSE 82; TEMP 98.6; O2SAT 98
[2024-02-21] MEDS ORDERED: COLC0.6C3 PO (22:14)
[2024-02-21] MEDS ORDERED: IBUP-862 PO (22:14)
[2024-02-21 22:32] VITALS: RESP 16
[2024-02-21] MEDS: ketorolac trometh 15mg/ml vial 15 MG/ML ML IM ONE (22:32)
== END 2024-02-21 22:49 | disposition home or self-care (01) ==
LOC: ER 20:27
DX: M79.672 Pain in left foot (principal); M79.671 Pain in right foot; M10.9 Gout, unspecified; E78.00 Pure hypercholesterolemia, unspecified; I10 Essential (primary) hypertension; J45.909 Unspecified asthma, uncomplicated; J44.9 Chronic obstructive pulmonary disease, unspecified; G89.29 Other chronic pain; M54.9 Dorsalgia, unspecified; F41.9 Anxiety disorder, unspecified; F20.9 Schizophrenia, unspecified; Z98.890 Other specified postprocedural states; Z90.49 Acquired absence of other specified parts of digestive tract; Z59.00 Homelessness unspecified; Z56.0 Unemployment, unspecified; Z88.0 Allergy status to penicillin; Z88.8 Allergy status to other drugs, medicaments and biological substances; Z79.899 Other long term (current) drug therapy
CPT/HCPCS: 96372; 99283; J1885; L3260

== ENCOUNTER 2024-03-05 18:26 | Emergency (ER) | payer SELFPAY ==
[~2024-03-05] VITALS: Ht 165.1 cm; Wt 81.1 kg
[~2024-03-05 18:26] MED LIST changes: +COLC0.6C3 PO; +IBUP-862 PO
[2024-03-05 21:04] VITALS: BP 134/82; PULSE 87; RESP 16; TEMP 98.6; O2SAT 96
== END 2024-03-05 21:06 | disposition home or self-care (01) ==
LOC: ER 18:27
DX: M13.862 Other specified arthritis, left knee (principal); M25.522 Pain in left elbow; M25.512 Pain in left shoulder; E78.00 Pure hypercholesterolemia, unspecified; I10 Essential (primary) hypertension; F41.9 Anxiety disorder, unspecified; J44.9 Chronic obstructive pulmonary disease, unspecified; F20.9 Schizophrenia, unspecified; Z88.0 Allergy status to penicillin; Z88.8 Allergy status to other drugs, medicaments and biological substances; Z90.49 Acquired absence of other specified parts of digestive tract; Z98.890 Other specified postprocedural states; W01.0XXA Fall on same level from slipping, tripping and stumbling without subsequent striking against object, initial encounter; Y93.89 Activity, other specified; Y92.89 Other specified places as the place of occurrence of the external cause; Y99.8 Other external cause status
CPT/HCPCS: 73030; 73080; 73564; 99284

== ENCOUNTER 2024-03-22 09:35 | Emergency (ER) | payer SELFPAY ==
[~2024-03-22] VITALS: Ht 167.6 cm; Wt 118.2 kg
[2024-03-22 10:45] VITALS: BP 151/95; PULSE 98; RESP 16; TEMP 98; O2SAT 98
== END 2024-03-22 10:46 | disposition home or self-care (01) ==
LOC: ER 09:36
DX: S93.401A Sprain of unspecified ligament of right ankle, initial encounter (principal); J44.9 Chronic obstructive pulmonary disease, unspecified; E78.00 Pure hypercholesterolemia, unspecified; I10 Essential (primary) hypertension; F20.9 Schizophrenia, unspecified; F41.9 Anxiety disorder, unspecified; Z88.0 Allergy status to penicillin; Z88.8 Allergy status to other drugs, medicaments and biological substances; Z90.49 Acquired absence of other specified parts of digestive tract; Z98.890 Other specified postprocedural states; X50.1XXA Overexertion from prolonged static or awkward postures, initial encounter; Y93.89 Activity, other specified; Y92.89 Other specified places as the place of occurrence of the external cause; Y99.8 Other external cause status
CPT/HCPCS: 73610; 99283; L4360

== ENCOUNTER 2024-06-19 00:04 | Emergency (ER) | payer MEDICAID ==
[~2024-06-19] VITALS: Ht 165.1 cm; Wt 109.0 kg
[2024-06-19 00:30] LABS: BASOPHILS # (AUTO) 0.1 X10'3 (0-0.2); EOSINOPHILS # (AUTO) 0.2 X10'3 (0-0.9); EOSINOPHILS % (AUTO) 2.8 % (0-6); HEMATOCRIT 43.4 % (42.0-52.0); HEMOGLOBIN 14.4 g/dl (14.0-17.9); LYMPHOCYTES # (AUTO) 2.5 X10'3 (1.1-4.8); LYMPHOCYTES % (AUTO) 37.7 % (21-51); MEAN CORPUSCULAR HGB CONC 33.1 g/dL (33.0-36.5); MEAN CORPUSCULAR VOLUME 84.6 FL (78-98); MONOCYTES # (AUTO) 0.5 X10'3 (0-0.9); NEUTROPHILS # (AUTO) 3.3 X10'3 (1.8-7.7); NEUTROPHILS % (AUTO) 50.5 % (42-75); PLATELET COUNT 214 X10'3 (140-440); RED BLOOD COUNT 5.14 X10'6 (4.70-6.10); RED CELL DISTRIBUTION WIDTH 15.3 % (11.5-14.5); WHITE BLOOD COUNT 6.5 X10'3 (4.5-11.0)
[2024-06-19 00:39] LABS: ALANINE AMINOTRANSFERASE 20 U/L (12-78); ALBUMIN 3.6 G/DL (3.4-5.0); ALBUMIN/GLOBULIN RATIO 0.9 (1.1-1.5); ALKALINE PHOSPHATASE 91 IU/L (46-116); ANION GAP 8 (8-16); ASPARTATE AMINO TRANSFERASE 13 U/L (10-37); BILIRUBIN,TOTAL 0.3 MG/DL (0.1-1.0); BLOOD UREA NITROGEN 14 MG/DL (7-18); BUN/CREATININE RATIO 9.9 (10.0-20.0); CALCIUM 8.3 MG/DL (8.5-10.1); CHLORIDE 108 MMOL/L (99-107); CREATININE 1.41 MG/DL (0.60-1.10); GLUCOSE 136 MG/DL (70-104); POTASSIUM 4.2 MMOL/L (3.5-5.1); SODIUM 140 MMOL/L (135-145); TOTAL CARBON DIOXIDE 24.5 MMOL/L (24-32); TOTAL PROTEIN 7.4 G/DL (6.4-8.2); eCRCL 48 ML/MIN; eGFR 51 ML/MIN
[2024-06-19 00:47] LABS: PRO BRAIN NATRIURETIC PEPTIDE 44 PG/ML (0-125)
[2024-06-19] MEDS: ondansetron 4mg rapidly disintigrating tab PO ONE (01:12)
[2024-06-19] MEDS: mag hydrox/Alum hydrox/simeth 30ml oral suspension PO ONE (01:12)
[2024-06-19] MEDS: famotidine 20mg tablet PO ONE (01:12)
[2024-06-19] MEDS: LIDOcaine 2% Viscous 15ml cup MM ONE (01:12)
[2024-06-19] MEDS: pantoprazole 40mg Tablet.DR PO ONE (01:17)
[2024-06-19] MEDS ORDERED: FAMO40TA73 PO (01:43)
[2024-06-19 02:08] VITALS: BP 149/90; PULSE 84; RESP 17; O2SAT 96
== END 2024-06-19 02:10 | disposition home or self-care (01) ==
LOC: ER 00:05
DX: K29.60 Other gastritis without bleeding (principal); E78.00 Pure hypercholesterolemia, unspecified; F20.9 Schizophrenia, unspecified; G89.29 Other chronic pain; I10 Essential (primary) hypertension; J45.909 Unspecified asthma, uncomplicated; J44.9 Chronic obstructive pulmonary disease, unspecified; F41.9 Anxiety disorder, unspecified; Z88.0 Allergy status to penicillin; Z88.8 Allergy status to other drugs, medicaments and biological substances; Z90.49 Acquired absence of other specified parts of digestive tract; Z98.890 Other specified postprocedural states; Z79.1 Long term (current) use of non-steroidal anti-inflammatories (NSAID); Z79.899 Other long term (current) drug therapy; Z56.0 Unemployment, unspecified; Z59.00 Homelessness unspecified
CPT/HCPCS: 36415; 71045; 80053; 83880; 84484; 85025; 93005; 99285

== ENCOUNTER 2024-06-29 21:57 | Emergency (ER) | payer MEDICAID ==
[~2024-06-29] VITALS: Ht 175.3 cm; Wt 106.1 kg
[~2024-06-29 21:57] MED LIST changes: +FAMO40TA73 PO
[2024-06-29] MEDS ORDERED: proparacaine 0.5% ophthalmic drops 15ml LEFTEYE ONE (22:45)
[2024-06-29 22:47] VITALS: BP 133/86; PULSE 72; O2SAT 94
[2024-06-29] MEDS: ondansetron/PF 4mg/2ml inj IV ONE (22:56)
[2024-06-29] MEDS: normal saline 1000ML IV soln IVB ONE (22:56)
[2024-06-29] MEDS: pantoprazole 40 MG vial IV ONE (22:56)
[2024-06-29] MEDS: proCHLORperazine 10 MG/2 ml inj IV ONE (22:56)
[2024-06-29 23:08] LABS: BASOPHILS # (AUTO) 0.1 X10'3 (0-0.2); BASOPHILS % (AUTO) 1.2 % (0-1); EOSINOPHILS # (AUTO) 0.1 X10'3 (0-0.9); EOSINOPHILS % (AUTO) 2.4 % (0-6); HEMATOCRIT 44.8 % (42.0-52.0); HEMOGLOBIN 14.5 g/dl (14.0-17.9); LYMPHOCYTES # (AUTO) 1.7 X10'3 (1.1-4.8); LYMPHOCYTES % (AUTO) 32.5 % (21-51); MEAN CORPUSCULAR HEMOGLOBIN 27.5 PG (27.0-31.0); MEAN CORPUSCULAR HGB CONC 32.5 g/dL (33.0-36.5); MEAN CORPUSCULAR VOLUME 84.8 FL (78-98); MEAN PLATELET VOLUME 8.2 FL (7.4-10.4); MONOCYTES # (AUTO) 0.6 X10'3 (0-0.9); MONOCYTES % (AUTO) 10.7 % (2-12); NEUTROPHILS # (AUTO) 2.8 X10'3 (1.8-7.7); NEUTROPHILS % (AUTO) 53.2 % (42-75); PLATELET COUNT 203 X10'3 (140-440); RED BLOOD COUNT 5.28 X10'6 (4.70-6.10); WHITE BLOOD COUNT 5.3 X10'3 (4.5-11.0)
[2024-06-29 23:15] LABS: ALBUMIN 3.5 G/DL (3.4-5.0); ANION GAP 8 (8-16); BLOOD UREA NITROGEN 17 MG/DL (7-18); BUN/CREATININE RATIO 10.7 (10.0-20.0); CALCIUM 8.9 MG/DL (8.5-10.1); CHLORIDE 108 MMOL/L (99-107); CREATININE 1.59 MG/DL (0.60-1.10); GLUCOSE 100 MG/DL (70-104); LIPASE 65 U/L (16-77); POTASSIUM 4.1 MMOL/L (3.5-5.1); SODIUM 142 MMOL/L (135-145); TOTAL CARBON DIOXIDE 26.1 MMOL/L (24-32); eCRCL 43 ML/MIN; eGFR 45 ML/MIN
[2024-06-29 23:29] VITALS: RESP 15; TEMP 98.6
== END 2024-06-29 23:45 | disposition left against medical advice (07) ==
LOC: ER 21:58
DX: R11.2 Nausea with vomiting, unspecified (principal); H57.12 Ocular pain, left eye; E78.00 Pure hypercholesterolemia, unspecified; F41.9 Anxiety disorder, unspecified; F20.9 Schizophrenia, unspecified; I10 Essential (primary) hypertension; J44.9 Chronic obstructive pulmonary disease, unspecified; Z88.0 Allergy status to penicillin; Z88.8 Allergy status to other drugs, medicaments and biological substances; Z90.49 Acquired absence of other specified parts of digestive tract; Z98.890 Other specified postprocedural states
CPT/HCPCS: 36415; 80048; 83690; 85025; 96361; 96374; 96375; 99284; J0780; J2405; J2470; J7030

== ENCOUNTER 2024-07-11 09:25 | Emergency (ER) | payer MEDICAID ==
[~2024-07-11] VITALS: Ht 165.1 cm; Wt 105.3 kg
--- NOTE | 2024-07-11 10:16 | Physician Documentation ---
History of Present Illness Chief Complaint: Vomiting w/diarrhea Stated Complaint: VOMITTING Time Seen by MD: 10:08 Primary Medical Doctor: [facility] Source: patient Mode of Arrival: EMS, Stretcher Exam Limitations: no limitations HPI 58-year-old male with chief complaint nausea and vomiting as well as diarrhea which started this morning however there are two other chart notes in the system from this month with a similar complaint. Patient states that he has abdominal pain as well he points to his upper abdomen where his pain is. Patient denies any pre arrival treatment. Patient denies any blood in his stool. He believes it was symptoms are due to eating chicken fingers from the [place]. Patient states his only abdominal surgical history is a cholecystectomy Medication Reconciliation Allergies: Coded Allergies: Haloperidol Lactate (Verified Allergy, Unknown, 07/11/24) Penicillins (Verified Allergy, Unknown, 07/11/24) haloperidol (Verified Allergy, Unknown, 07/11/24) Uncoded Allergies: FISH (Allergy, Unknown, 08/30/16) ASA (Adverse Reaction, Mild, 07/11/24) "hurts my stomach" Scheduled Albuterol Sulfate (Ventolin Hfa), 2 PUFFS INH Q4HPRN Azithromycin (Zithromax), 1 DOSPAK PO UD Colchicine (Colchicine), 1 CAP PO DAILY Cyclobenzaprine* (Cyclobenzaprine*), 1 TAB PO Q8H Cyclobenzaprine* (Cyclobenzaprine*), 1 TAB PO HS Diclofenac Sodium (Voltaren), 1 GM TOP Q6H Famotidine (Pepcid), 1 TAB PO DAILY Famotidine (Pepcid), 1 TAB PO DAILY Ibuprofen (Ibu), 1 TAB PO Q6H Lidocaine (Lidoderm), 1 PATCH TOP DAILY Meloxicam* (Meloxicam*), 1 TAB PO DAILY Orphenadrine Citrate (Norflex), 1 TAB PO Q12H PRN Scheduled PRN Albuterol Sulfate (Proair Hfa), 2 PUFFS IH Q4H PRN for SOB or wheezing Albuterol Sulfate (Proair Respiclick), 2 PUFFS INH Q4HPRN PRN for shortness of breath Past Medical History Past Medical History: Headache, High Cholesterol, Hypertension, Asthma, COPD, Hernia, Chronic Back Pain, Anxiety, Psychosis, Schizophrenia Past Surgical History: abdominal surgery, cholecystectomy, other Other Past Surgical History: hernia repair Alcohol Use: None Drug Use: none Lives In: Homeless Occupation: unemployed, disabled Review of Systems All Other Systems at this time: Reviewed and Negative Physical Exam Vital Signs: Temperature: 98.0, Source: Temporal, Heart Rate: 87, Respiratory Rate: 16, BP: 135/75, Pulse Oximetry: 98, Weight: 105.300 Physical Exam General Appearance: Alert, WD/WN. Patient does not appear to be in distress he is sleeping on the gurney, no vomiting route entire time with the emergency room. HEENT: NCAT, PERRL, EOMI. Neck: Supple, trachea midline. Cardiovascular: RRR. No m/r/g. Lungs: CTAB. Breathing unlabored Abdomen: Soft, nondistended, tenderness in the upper abdominal quadrants both left and right patient has a palpable mass just above his umbilicus which is also tender to palpation and non reducible. Extremities: Normal inspection. No edema. Skin: Warm/dry, normal color Neurological: Alert and oriented x4, normal gait. Psychiatric: Affect congruent with mood. Progress Results/Orders Reviewed/noted all lab results: Yes Results/Orders Orders - PAGE PAUL Ct Abdomen Pelvis (07/11/24 10:12) Normal Saline Bolus (07/11/24 10:15) Ondansetron Inj. (Zofran 4mg/2ml Vial) (07/11/24 10:15) Vital Signs 07/11/24 07/11/24 09:38 09:53 Temp 98.0 Pulse 87 Resp 16 16 B/P (MAP) 135/75 Pulse Ox 98 EKG/XRAY/CT/US/VASC/MRI CT : Interpreted By: radiologist CT: abdomen/pelvis Impression Exam: CT CT ABDOMEN PELVIS W/ IV CONTRAST History: ABDOMINAL PAIN, VOMITING, DIARRHEA, SUPRAUMBILICAL HERNIA NOTED ON EXAM COMPARISON: None Technique: Multidetector spiral CT of the abdomen and pelvis was performed from lung bases to pubic symphysis. Intravenous contrast was administered during this examination. Portal venous imaging was obtained. Axial, coronal and sagittal multiplanar reformats were performed by the technologist on a separate workstation. Radiation Dose : Abdomen/Pelvis: CTDIvol 36 mGy, DLP 1850 mGy*cm. CONTRAST: Type of contrast: Omni 300 Contrast injected: 100 mL Findings: Lung Bases: No acute or significant lung base finding. Normal heart size. No pleural or pericardial effusion. Liver: The liver is normal in size. No focal lesions. Normal hepatic vascular enhancement. Gallbladder and biliary Tree: Gallbladder is surgically absent. Spleen: Unremarkable Pancreas: Fluid collection in the region of the tail of the pancreas measuring up to 39 mm. Adrenal Glands: Unremarkable Kidneys: Bilateral renal cysts. No hydronephrosis. Bladder: Unremarkable Bowel: The stomach is grossly normal in appearance. Small bowel and colon are normal in caliber and distribution. Normal appendix is visualized in the right lower quadrant without findings of appendicitis. Ascites: Absent Lymphadenopathy: No mesenteric, retroperitoneal or periportal lymphadenopathy. Abdominal wall and Mesentery: Fat containing periumbilical hernia. Vasculature: The visualized abdominal aorta is normal in size and caliber. Abdominal and pelvic vessels demonstrate normal enhancement. Pelvic Organs: Unremarkable Musculoskeletal: Grade 1 anterolisthesis of L4 on L5. IMPRESSION: 1. Fluid collection in the region of the tail of the pancreas measuring up to 39 mm could represent a pseudocyst. No peripancreatic stranding to suggest acute pancreatitis. Clinical correlation is recommended. Fat containing periumbilical hernia. Radiation optimization: All CT scans at this facility use at least one of these dose optimization techniques: Automated exposure control mA and/or kV adjustment per patient size (includes targeted exams where dose is matched to clinical indication) or iterative reconstruction. HS:Y Electronically Signed by:JONNIE BELLAMY MD Date & Time: 07/11/241326 Dictated by: JONNIE BELLAMY MD Dictation date and time: 07/11/24 1327 Primary Care Provider: NO PRIMARY CARE PROVIDER cc: PAGE PAUL ~ Medical Decision Making Differential Dx:Considerations: Include: AAA, Angina/IL, Aortic dissection, Appendicitis, Bowel obstruction, Cholangitis, Cholelithasis, Constipation, Di verticular disease, Esophageal rupture, Esophagitis, Gastritis/PUD, Gastroenteritis, GI hemorrhage, Hernia, Hepatitis, Inflammatory BD, Ischemic bowel, Pancreatitis, Porphyria, Testicular torsion, Trauma, intraabdominal, Urinary obstruction, Urinary tract infection, Urolithiasis Additional Comments Considering this was patient's 3rd time to the ER for gastrointestinal complaints over the past month I felt it was necessary to do a CT scan as he had not yet had one. Departure Time of Disposition: 19:07 Disposition: 01 HOME / SELF CARE / HOMELESS Impression: Primary Impression: Nausea & vomiting Qualified Codes: R11.2 - Nausea with vomiting, unspecified Additional Impressions: Supraumbilical hernia without gangrene Pancreatic pseudocyst Condition: Stable Discharge Instructions: Nausea, Adult, [id number] Additional Instructions: no vomiting throughout stay in ER no diarrhea throughout stay in ER no evidence for surgical issue or reason for hospitalization recommend bland diet and gradually advance as tolerated f/u with pcp about abnormality noted in pancreas as well as the hernia we discussed your hernia is not the cause of your symptoms but hernias can cause bowel obstructions and problems your hernia is the bulge above your belly button, if this area becomes firm to the touch, you have increasing pain return to ER COPY OF YOUR CT SCAN IS BELOW TO TAKE WITH YOU TO YOUR FOLLOW UP WITH YOUR [facility] [place] CARE PROVIDER History: ABDOMINAL PAIN, VOMITING, DIARRHEA, SUPRAUMBILICAL HERNIA NOTED ON EXAM COMPARISON: None Technique: Multidetector spiral CT of the abdomen and pelvis was performed from lung bases to pubic symphysis. Intravenous contrast was administered during this examination. Portal venous imaging was obtained. Axial, coronal and sagittal multiplanar reformats were performed by the technologist on a separate workstation. Radiation Dose : Abdomen/Pelvis: CTDIvol 36 mGy, DLP 1850 mGy*cm. CONTRAST: Type of contrast: Omni 300 Contrast injected: 100 mL Findings: Lung Bases: No acute or significant lung base finding. Normal heart size. No pleural or pericardial effusion. Liver: The liver is normal in size. No focal lesions. Normal hepatic vascular enhancement. Gallbladder and biliary Tree: Gallbladder is surgically absent. Spleen: Unremarkable Pancreas: Fluid collection in the region of the tail of the pancreas measuring up to 39 mm. Adrenal Glands: Unremarkable Kidneys: Bilateral renal cysts. No hydronephrosis. Bladder: Unremarkable Bowel: The stomach is grossly normal in appearance. Small bowel and colon are normal in caliber and distribution. Normal appendix is visualized in the right lower quadrant without findings of appendicitis. Ascites: Absent Lymphadenopathy: No mesenteric, retroperitoneal or periportal lymphadenopathy. Abdominal wall and Mesentery: Fat containing periumbilical hernia. Vasculature: The visualized abdominal aorta is normal in size and caliber. Abdominal and pelvic vessels demonstrate normal enhancement. Pelvic Organs: Unremarkable Musculoskeletal: Grade 1 anterolisthesis of L4 on L5. IMPRESSION: 1. Fluid collection in the region of the tail of the pancreas measuring up to 39 mm could represent a pseudocyst. No peripancreatic stranding to suggest acute pancreatitis. Clinical correlation is recommended. Fat containing periumbilical hernia. Radiation optimization: All CT scans at this facility use at least one of these dose optimization techniques: Automated exposure control mA and/or kV adjustment per patient size (includes targeted exams where dose is matched to clinical indication) or iterative reconstruction. Referrals: NO PRIMARY CARE PROVIDER (PCP) Education Educated: Patient Educated regarding: diagnosis, treatment, need for follow up Signature Scribe Signature: x Attestation: PAGE Hidalgo July 11, 2024 10:16
[2024-07-11 10:28] LABS: BASOPHILS % (AUTO) 0.2 % (0-1); EOSINOPHILS # (AUTO) 0.1 X10'3 (0-0.9); EOSINOPHILS % (AUTO) 0.5 % (0-6); HEMOGLOBIN 14.9 g/dl (14.0-17.9); LYMPHOCYTES # (AUTO) 0.4 X10'3 (1.1-4.8); LYMPHOCYTES % (AUTO) 3.6 % (21-51); MEAN CORPUSCULAR HEMOGLOBIN 28.1 PG (27.0-31.0); MEAN CORPUSCULAR HGB CONC 33.2 g/dL (33.0-36.5); MEAN CORPUSCULAR VOLUME 84.5 FL (78-98); MONOCYTES # (AUTO) 0.4 X10'3 (0-0.9); MONOCYTES % (AUTO) 3.5 % (2-12); NEUTROPHILS # (AUTO) 9.4 X10'3 (1.8-7.7); NEUTROPHILS % (AUTO) 92.2 % (42-75); PLATELET COUNT 184 X10'3 (140-440); RED BLOOD COUNT 5.33 X10'6 (4.70-6.10); RED CELL DISTRIBUTION WIDTH 14.9 % (11.5-14.5); WHITE BLOOD COUNT 10.2 X10'3 (4.5-11.0)
[2024-07-11 10:48] LABS: ALANINE AMINOTRANSFERASE 26 U/L (12-78); ALBUMIN 3.8 G/DL (3.4-5.0); ALKALINE PHOSPHATASE 99 IU/L (46-116); ANION GAP 8 (8-16); ASPARTATE AMINO TRANSFERASE 18 U/L (10-37); BILIRUBIN,TOTAL 0.8 MG/DL (0.1-1.0); BLOOD UREA NITROGEN 15 MG/DL (7-18); BUN/CREATININE RATIO 10.6 (10.0-20.0); CALCIUM 8.8 MG/DL (8.5-10.1); CHLORIDE 107 MMOL/L (99-107); CREATININE 1.41 MG/DL (0.60-1.10); GLUCOSE 121 MG/DL (70-104); LIPASE 41 U/L (16-77); POTASSIUM 4.6 MMOL/L (3.5-5.1); SODIUM 140 MMOL/L (135-145); TOTAL CARBON DIOXIDE 24.7 MMOL/L (24-32); TOTAL PROTEIN 7.8 G/DL (6.4-8.2); eCRCL 48 ML/MIN; eGFR 51 ML/MIN
[2024-07-11] MEDS ORDERED: iohexol 300mg/ml 100ml inj. ONE (10:59)
[2024-07-11] MEDS: ondansetron/PF 4mg/2ml inj IV ONE (11:22)
[2024-07-11] MEDS: normal saline 1000ML IV soln IVB ONE (11:22)
[2024-07-11 13:26] VITALS: TEMP 98
--- NOTE | 2024-07-11 13:29 | RADIOLOGY REPORT ---
Exam: CT CT ABDOMEN PELVIS W/ IV CONTRAST History: ABDOMINAL PAIN, VOMITING, DIARRHEA, SUPRAUMBILICAL HERNIA NOTED ON EXAM COMPARISON: None Technique: Multidetector spiral CT of the abdomen and pelvis was performed from lung bases to pubic symphysis. Intravenous contrast was administered during this examination. Portal venous imaging was obtained. Axial, coronal and sagittal multiplanar reformats were performed by the technologist on a separate workstation. Radiation Dose : Abdomen/Pelvis: CTDIvol 36 mGy, DLP 1850 mGy*cm. CONTRAST: Type of contrast: Omni 300 Contrast injected: 100 mL Findings: Lung Bases: No acute or significant lung base finding. Normal heart size. No pleural or pericardial effusion. Liver: The liver is normal in size. No focal lesions. Normal hepatic vascular enhancement. Gallbladder and biliary Tree: Gallbladder is surgically absent. Spleen: Unremarkable Pancreas: Fluid collection in the region of the tail of the pancreas measuring up to 39 mm. Adrenal Glands: Unremarkable Kidneys: Bilateral renal cysts. No hydronephrosis. Bladder: Unremarkable Bowel: The stomach is grossly normal in appearance. Small bowel and colon are normal in caliber and d istribution. Normal appendix is visualized in the right lower quadrant without findings of appendicit is. Ascites: Absent Lymphadenopathy: No mesenteric, retroperitoneal or periportal lymphadenopathy. Abdominal wall and Mesentery: Fat containing periumbilical hernia. Vasculature: The visualized abdominal aorta is normal in size and caliber. Abdominal and pelvic vess els demonstrate normal enhancement. Pelvic Organs: Unremarkable Musculoskeletal: Grade 1 anterolisthesis of L4 on L5. IMPRESSION: 1. Fluid collection in the region of the tail of the pancreas measuring up to 39 mm could represent a pseudocyst. No peripancreatic stranding to suggest acute pancreatitis. Clinical correlation is rec ommended. Fat containing periumbilical hernia. Radiation optimization: All CT scans at this facility use at least one of these dose optimization karla hniques: Automated exposure control mA and/or kV adjustment per patient size (includes targeted exams where dose is matched to clinical indication) or iterative reconstruction. HS:Y
[2024-07-11 14:11] VITALS: BP 121/82; PULSE 81; RESP 18; O2SAT 99
== END 2024-07-11 14:15 | disposition home or self-care (01) ==
LOC: ER 09:26
DX: K42.9 Umbilical hernia without obstruction or gangrene (principal); R11.2 Nausea with vomiting, unspecified; I10 Essential (primary) hypertension; F20.9 Schizophrenia, unspecified; E78.00 Pure hypercholesterolemia, unspecified; J45.909 Unspecified asthma, uncomplicated; J44.9 Chronic obstructive pulmonary disease, unspecified; F41.9 Anxiety disorder, unspecified; G89.29 Other chronic pain; M54.9 Dorsalgia, unspecified; Z88.0 Allergy status to penicillin; Z88.8 Allergy status to other drugs, medicaments and biological substances; Z90.49 Acquired absence of other specified parts of digestive tract; Z98.890 Other specified postprocedural states; Z79.899 Other long term (current) drug therapy; Z79.1 Long term (current) use of non-steroidal anti-inflammatories (NSAID); Z56.0 Unemployment, unspecified; Z59.00 Homelessness unspecified
CPT/HCPCS: 36415; 74177; 80053; 83690; 85025; 96361; 96374; 99285; J2405; J7030; Q9967

== ENCOUNTER 2024-07-16 22:24 | Inpatient (IN) | payer MEDICAID ==
[~2024-07-16] VITALS: Ht 165.1 cm; Wt 96.0 kg
--- NOTE | 2024-07-16 22:38 | Physician Documentation ---
History of Present Illness ~ Chief Complaint: Chest Pain Stated Complaint: CARDIAC ARREST Time Seen by MD: 22:28 Primary Medical Doctor: [facility] History, review of systems, physical examination are limited due to patient's clinical condition. This is a 58-year-old gentleman who does not report any significant past medical history presents for evaluation of chest pain. Initial called by EMS was for chest pain radiating into his left arm. In route the gentleman went into ventricular tachycardia, lost pulses, received CPR and single shock with a return of spontaneous circulation. Upon arrival to the emergency department he complains of substernal chest pain. Can not elaborate on any palliating or aggravating factors. He does not have understanding or the recollection of what happened to him. Does not answer social questions Medication Reconciliation Allergies: Coded Allergies: Haloperidol Lactate (Verified Allergy, Unknown, 07/11/24) Penicillins (Verified Allergy, Unknown, 07/11/24) haloperidol (Verified Allergy, Unknown, 07/11/24) Uncoded Allergies: FISH (Allergy, Unknown, 08/30/16) ASA (Adverse Reaction, Mild, 07/11/24) "hurts my stomach" Scheduled Albuterol Sulfate (Ventolin Hfa), 2 PUFFS INH Q4HPRN Azithromycin (Zithromax), 1 DOSPAK PO UD Colchicine (Colchicine), 1 CAP PO DAILY Cyclobenzaprine* (Cyclobenzaprine*), 1 TAB PO Q8H Cyclobenzaprine* (Cyclobenzaprine*), 1 TAB PO HS Diclofenac Sodium (Voltaren), 1 GM TOP Q6H Famotidine (Pepcid), 1 TAB PO DAILY Famotidine (Pepcid), 1 TAB PO DAILY Ibuprofen (Ibu), 1 TAB PO Q6H Lidocaine (Lidoderm), 1 PATCH TOP DAILY Meloxicam* (Meloxicam*), 1 TAB PO DAILY Orphenadrine Citrate (Norflex), 1 TAB PO Q12H PRN Scheduled PRN Albuterol Sulfate (Proair Hfa), 2 PUFFS IH Q4H PRN for SOB or wheezing Albuterol Sulfate (Proair Respiclick), 2 PUFFS INH Q4HPRN PRN for shortness of breath Past Medical History Past Medical History: Headache, High Cholesterol, Hypertension, Asthma, COPD, Hernia, Chronic Back Pain, Anxiety, Psychosis, Schizophrenia Past Surgical History: abdominal surgery, cholecystectomy, other Other Past Surgical History: hernia repair Alcohol Use: None Drug Use: none Lives In: Homeless Occupation: unemployed, disabled Review of Systems ROS Review of systems is limited as above Physical Exam Vital Signs: Temperature: 98.2, Source: Oral, Heart Rate: 81, Respiratory Rate: 13, BP: 131/99, Pulse Oximetry: 99, Weight: 96.000 Oxygen Flow Rate: 3.0 Physical Exam GENERAL: Awake, alert, oriented, GCS 15, no apparent distress, non-toxic appearing, answers questions to the best of his ability and limited fashion, follows commands appropriately. Examined immediately upon arrival in bed 5., myself and full resuscitative team present. High BMI gentleman. HEENT: Atraumatic, normocephalic, pupils equal, extraocular muscles intact, sclerae anicteric, mucus membranes moist, oropharynx is clear, no stridor. NECK: supple, full active range of motion, trachea midline, no thyromegaly, no lymphadenopathy, no JVD. CARDIOVASCULAR: regular rate/rhythm, no murmurs/gallops/rubs, Pulses are 2+ in all extremities and symmetric. Capillary refill less than 2 seconds. PULMONARY: Nonlabored, good air movement ,no respiratory distress, speaking in full sentences, clear to auscultation bilaterally, no wheezing, no ronchi, no rales, no accessory muscle use. GASTROINTESTINAL: Soft, non-tender, non-distended, normal active bowel sounds, no organomegaly, no pulsatile masses, no CVA tenderness. NEUROLOGIC: Lucid with normal mental status. Normal facial symmetry. Moves all extremities symmetrically and with purpose. No truncal ataxia. Speech is fluid without evidence of dysarthria or aphasia, no focal deficits appreciated. MUSCULOSKELETAL: There is full range of motion of all extremities. There is no joint pain or joint swelling or joint erythema. There is no muscle pain or tenderness or swelling. EXTREMITIES: warm, well-perfused, no cyanosis, no clubbing, no edema, no acute deformities. Skin: warm, dry, no rashes or lesions, no jaundice, no petechiae orpurpura. No ecchymosis. PSYCHIATRIC: Flat affect, normal insight, normal concentration. Focused exam: [] Progress Results/Orders Results/Orders Orders - CARL MOKN DO Electrocardiogram (07/16/24 22:29) Chest,Single View (07/16/24 22:45) Monitor (07/16/24 22:29) Saline Lock (07/16/24:) Accucheck (07/16/24 22:29) Accucheck (07/17/24 00:29) Accucheck (07/17/24 02:29) Hs Troponin I W Calculations (07/17/24 00:29) Hs Troponin I W Calculations (07/17/24 01:29) Amiodarone/D5 360mg/200ml Bag (Nexterone (07/16/24 22:30) Completed Orders - CARL MONK DO Cbc/Diff (07/16/24:) D-Dimer (07/16/24:) Pt Inr (07/16/24:) PTT (07/16/24:) Chest,Single View (07/16/24 22:45) PBNP (07/16/24:) MG (07/16/24 22:29) CMP (07/16/24 22:29) Hs Troponin I W Calculations (07/16/24 22:29) Amiodarone 150mg/Dext, Iso-Os (Nexterone (07/16/24 22:30) Magnesium Sulf-Water 2g/50ml (Magnesium (07/16/24 22:30) Medications Received in ER Medications (Trade) Dose Ordered Sig/Jewel Route PRN Reason Start Time Stop Time Status Last Admin Dose Admin Amiodarone HCL/ Dextrose 200 ml @ 33.333 mls/ hr Q6H IV 07/16/24 22:30 07/16/24 23:15 33.333 MLS/HR Amiodarone HCL/ Dextrose 100 ml @ 600 mls/hr ONCE ONCE IV 07/16/24 22:30 07/16/24 22:39 DC 07/16/24 22:45 600 MLS/HR Magnesium Sulfate 50 ml @ 100 mls/hr ONCE ONCE IV 07/16/24 22:30 07/16/24 22:59 DC 07/16/24 22:52 100 MLS/HR Vital Signs 07/16/24 22:24 Temp 98.2 Pulse 81 Resp 13 B/P (MAP) 131/99 Pulse Ox 99 O2 Flow Rate 3.0 Laboratory Tests Test 07/16/24 22:31 White Blood Count 6.9 Red Blood Count 4.86 Hemoglobin 13.6 L Hematocrit 40.9 L Mean Corpuscular Volume 84.2 Mean Corpuscular Hemoglobin 28.0 Mean Corpuscular Hemoglobin Concent 33.3 Red Cell Distribution Width 14.2 Platelet Count 196 Mean Platelet Volume 8.6 Neutrophils (%) (Auto) 56.3 Lymphocytes (%) (Auto) 30.6 Monocytes (%) (Auto) 10.3 Eosinophils (%) (Auto) 1.9 Basophils (%) (Auto) 0.9 Neutrophils # (Auto) 3.9 Lymphocytes # (Auto) 2.1 Monocytes # (Auto) 0.7 Eosinophils # (Auto) 0.1 Basophils # (Auto) 0.1 CBC Comment Prothrombin Time 10.6 INR International Normalized Ratio 1.0 Activated Partial Thromboplast Time 25 D-Dimer 0.27 D-Dimer Comment Coagulation Comments Sodium Level 143 Potassium Level 3.6 Chloride Level 108 H Carbon Dioxide Level 24.2 Anion Gap 11 Blood Urea Nitrogen 15 Creatinine 1.60 H Estimated GFR/1.73 m2 44 BUN/Creatinine Ratio 9.4 L Glucose Level 162 H Calcium Level 8.3 L Magnesium Level 1.9 Total Bilirubin 0.3 Aspartate Amino Transf (AST/SGOT) 40 H Alanine Aminotransferase (ALT/SGPT) 39 Alkaline Phosphatase 82 Troponin I High Sensitivity 41 Pro-B-Type Natriuretic Peptide 56 Total Protein 7.3 Albumin 3.3 L Globulin 4.0 Albumin/Globulin Ratio 0.8 L Chemistry Comments EKG/XRAY/CT/US/VASC/MRI EKG : Additional Comment EKG was obtained and interpreted by myself shows sinus rhythm of 83, normal VA interval, narrow QRS, prolonged QTC, normal axis, no STEMI. The see depression in inferior leads noted. Medical Decision Making Findings Facility Status: ED Holds, RME process The plan was discussed with the patient, who demonstrates clear understanding of the plan and is in agreement with the plan unless otherwise noted in the chart. All questions have been answered, all concerns were addressed unless otherwise documented. I was available throughout their ED stay for frequent reassessment and questions. Differential Diagnoses (considered and possible or likely): [Differential diagnosis considered includes chest wall pain, pleurisy, pneumonia, pulmonary embolus, GERD, esophagitis, gastritis, anxiety, stress reaction, costochondritis, acute coronary syndrome, aortic dissection, pericarditis, myocarditis, or pneumothorax. The gentleman clearly arrested with a ventricular tachycardia, however return spontaneous circulation with the with the mentation and no STEMI on EKG. Not clear whether the ventricular tachycardia was monomorphic or polymorphic, especially given his prolonged QT] ??Differential Diagnoses (considered and unlikely, not requiring evaluation currently): [Aortic/great vessels dissection was considered but it is unlikely based on absence of ripping, tearing, migratory chest pain, absence of focal neurologic deficits, physical examination indicating equal and symmetric pulses. ] MDM Data Please see HPI for the following: Independent Historians and external Records Review. Historian: Limited information from patient Independent Historians: ?[EMS] Medication Management: [Reviewed medication list] Social History and determinants: [Reviewed] Please see the body of the note for the following: Any independent interpretations of ECG, imaging studies. All vitals signs/haemodynamics, ordered tests were independently reviewed and interpreted by myself. Nursing triage complaint and vitals reviewed, additional nursing notes were reviewed as available and I agree unless otherwise noted or documented in contradiction in the chart Vital Signs: Independently reviewed Labs: Independently interpreted Imaging: Independently interpreted Old Medical Records: Independently reviewed, see [facility] for relevant summary and in formation Pulse Oximetry: [95%] interpreted as [normal on room air] by me [Film Laboratory Technician: [Regular Rate, Regular rhythm, no ectopy, NSR] reviewed and interpreted by me] Additionally notably showing: [Hemodynamically stable since return of spontaneous circulation. Laboratory workup was completely unremarkable including negative troponin and negative BNP] Tests considered but not ordered include: [Echo and potentially cardiac catheterization can be done on an inpatient basis] Social Determinants of Health Impact: Patient was evaluated in [facility], or [facility] [place] access to healthcare due to below par ratio of patient to medical providers. [] Comorbid Conditions Impacting Present Evaluation and Care/Treatment: [Unknown] Management Discussions with other Healthcare Providers: [Hospitalist regarding admission] Treatment and Disposition Medication Management (Given or considered): [Magnesium amiodarone, fluid bolus]. See EMR for details Consideration for Hospitalization/Escalation/Deescalation of Care: Admission for inpatient treatment as necessary for further management of his ventricular tachycardia episode. ?ED Course:?[Review of EMS strip is concerning for polymorphic V-tach the only a very brief amount of ventricular tachycardia has been captured on that strip] ?Shared decision making:?[] Code status:?FULL Please see the full Electronic Medical Record for full details of nursing documentation, medications list, other records of complete past medical history and conditions, vital signs, laboratory studies, and any radiologic study interpretations by radiologists. Portions of this note were completed using 3Jam dictation software and as a result there may exist minor errors in spelling. I have reviewed elements of past family and social history and agree as included in note. Departure Disposition: ADMITTED INPATIENT Admitted to Inpatient Unit: to hospitalist Impression: Primary Impression: Cardiopulmonary arrest with successful resuscitation Additional Impressions: Ventricular tachycardia Acute chest pain Condition: Guarded Referrals: NO PRIMARY CARE PROVIDER (PCP) Critical Care Note Critical Care Note CRITICAL CARE TIME: [ 40] minutes Treatments/Evaluations: Close monitoring and treatment of unstable vital signs, cardiorespiratory, and neurologic status, while maintaining tight balance of fluid, respiratory, and cardiac interventions. This time includes discussing the case with the patient and the patients family. This time does not include all procedures stated elsewhere in this record. This time also includes reviewing old records, labs and radiological studies. This time includes examining and re- examining the patient. Additionally, this time also includes arranging care with admitting and consulting physicians. Signature Scribe Signature: No scribe Attestation: This note accurately reflects clinical decisions, work performed by myself, DO ALESHIA Sotomayor NICHOLAS M DO July 16, 2024 22:38
[2024-07-16] MEDS: amiodarone 150mg/dext, iso-os 100 ML IV ONE (22:45)
[2024-07-16 22:52] LABS: BASOPHILS # (AUTO) 0.1 X10'3 (0-0.2); BASOPHILS % (AUTO) 0.9 % (0-1); EOSINOPHILS # (AUTO) 0.1 X10'3 (0-0.9); EOSINOPHILS % (AUTO) 1.9 % (0-6); HEMATOCRIT 40.9 % (42.0-52.0); HEMOGLOBIN 13.6 g/dl (14.0-17.9); LYMPHOCYTES # (AUTO) 2.1 X10'3 (1.1-4.8); LYMPHOCYTES % (AUTO) 30.6 % (21-51); MEAN CORPUSCULAR HGB CONC 33.3 g/dL (33.0-36.5); MEAN CORPUSCULAR VOLUME 84.2 FL (78-98); MEAN PLATELET VOLUME 8.6 FL (7.4-10.4); MONOCYTES # (AUTO) 0.7 X10'3 (0-0.9); MONOCYTES % (AUTO) 10.3 % (2-12); NEUTROPHILS # (AUTO) 3.9 X10'3 (1.8-7.7); NEUTROPHILS % (AUTO) 56.3 % (42-75); PLATELET COUNT 196 X10'3 (140-440); RED BLOOD COUNT 4.86 X10'6 (4.70-6.10); RED CELL DISTRIBUTION WIDTH 14.2 % (11.5-14.5); WHITE BLOOD COUNT 6.9 X10'3 (4.5-11.0)
[2024-07-16] MEDS: magnesium sulf-water 2g/50mL 50 ML IV ONE (22:52)
--- NOTE | 2024-07-16 22:58 | RADIOLOGY REPORT ---
CHEST RADIOGRAPH Indication: Chest pain Technique: Single frontal view of the chest was obtained Comparison: DI CHEST,SINGLE VIEW on DOS: 06/19/24, DI CHEST,SINGLE VIEW on DOS: 06/30/23, CHEST,SINGLE VIEW on DOS: 03/09/21 FINDINGS: Lines and Tubes: None Lungs: No focal consolidation. Pleura: No effusion. No pneumothorax. Cardiomediastinal contours: Unremarkable Bones: No acute osseous abnormality. IMPRESSION: 1. No acute cardiopulmonary disease.
[2024-07-16 23:06] LABS: APTT 25 SECONDS (22-32); D-DIMER 0.27 MG/L FEU (0-0.50); PROTHROMBIN TIME 10.6 SECONDS (9.0-12.0)
[2024-07-16 23:10] LABS: ALANINE AMINOTRANSFERASE 39 U/L (12-78); ALBUMIN 3.3 G/DL (3.4-5.0); ALBUMIN/GLOBULIN RATIO 0.8 (1.1-1.5); ALKALINE PHOSPHATASE 82 IU/L (46-116); ANION GAP 11 (8-16); ASPARTATE AMINO TRANSFERASE 40 U/L (10-37); BILIRUBIN,TOTAL 0.3 MG/DL (0.1-1.0); BLOOD UREA NITROGEN 15 MG/DL (7-18); BUN/CREATININE RATIO 9.4 (10.0-20.0); CALCIUM 8.3 MG/DL (8.5-10.1); CHLORIDE 108 MMOL/L (99-107); GLUCOSE 162 MG/DL (70-104); POTASSIUM 3.6 MMOL/L (3.5-5.1); SODIUM 143 MMOL/L (135-145); TOTAL CARBON DIOXIDE 24.2 MMOL/L (24-32); TOTAL PROTEIN 7.3 G/DL (6.4-8.2); eCRCL 43 ML/MIN; eGFR 44 ML/MIN
[2024-07-16] MEDS: amiodarone/D5 360MG/200ML BAG 200 ML IV SCH (23:15)
[2024-07-16 23:17] LABS: MAGNESIUM 1.9 MG/DL (1.5-2.4); PRO BRAIN NATRIURETIC PEPTIDE 56 PG/ML (0-125)
[2024-07-17] VITALS (16 sets, daily range): BP systolic 114–149; BP diastolic 65–88; PULSE 60–73; RESP 11–20; TEMP 97.4–98.3; O2SAT 95–98
[2024-07-17] MEDS: normal saline 1000ml 1,000 ML IV ONE (00:30)
[2024-07-17] MEDS ORDERED: NO HOME MEDS (00:49)
[2024-07-17] MEDS ORDERED: magnesium sulf-water 4G/100mL 100 ML IV PRN ×2 (02:20→06:45)
[2024-07-17] MEDS ORDERED: potassium Cl 20 mEq SR tablet PO PRN ×4 (02:20→06:45)
[2024-07-17] MEDS ORDERED: ondansetron/PF 4mg/2ml inj IV PRN (02:20)
[2024-07-17] MEDS ORDERED: magnesium Cl slow-release 64mg tablet PO PRN (02:20)
[2024-07-17] MEDS ORDERED: aspirin 325mg tablet PO ONE (02:20)
[2024-07-17] MEDS ORDERED: mag hydrox/Alum hydrox/simeth 30ml oral suspension PO PRN (02:20)
[2024-07-17] MEDS ORDERED: PERFLUTREN PROTEIN-A MICROSPHR (Optison) 0.22 MG/ML 3ML VIAL IV PRN (02:20)
[2024-07-17] MEDS ORDERED: magnesium hydroxide 30ml (MOM) UD suspension PO PRN (02:20)
[2024-07-17] MEDS ORDERED: acetaminophen 325mg tablet PO PRN ×2 (02:20)
[2024-07-17] MEDS ORDERED: potassium Cl 40MEQ/1/2NS 520ml 520 ML IV PRN ×2 (02:20→06:45)
--- NOTE | 2024-07-17 02:33 | HISTORY AND PHYSICAL-Residence ---
History & Physical Providers to CC Resident Creating Document: TAYLOR KEENE, RES ~ History of Present Illness Primary Medical Doctor: [facility] Reason for Admit\\Complaint: Cardiac arrest History of Present Illness The patient is a 58-year-old male with no known past medical history, was brought to the ED by EMS after cardiac arrest. The patient is not oriented to time, person. History is obtained from previous records and ED physician's notes. Initially, the patient called EMS for chest pain radiating into his left arm. EN route to the hospital, the patient developed V-tach and lost pulses. He received CPR and shock after which he achieved ROSC. In the ER, he is repeatedly asking for discharge and did not want to get admitted. He can not remember the events happened to him earlier and he is disoriented. Allergies: Coded Allergies: Haloperidol Lactate (Verified Allergy, Unknown, 07/11/24) Penicillins (Verified Allergy, Unknown, 07/11/24) haloperidol (Verified Allergy, Unknown, 07/11/24) Uncoded Allergies: FISH (Allergy, Unknown, 08/30/16) ASA (Adverse Reaction, Mild, 07/11/24) "hurts my stomach" Home Medications Home Medications Active Reported No Home Medications (Home Med List) Each Past Medical History Past Medical History Unknown Past Surgical History Surgical History Comment Unknown Past Social History Social History Comment Patient unwilling to give history. Smoking: Non-Smoker Alcohol Use: None Drug Use: None Lives In: Homeless Occupation: unemployed, disabled ROS ROS Could not be obtained as patient is uncooperative. Exam Vitals: Vital Signs Date Time Temp Pulse Resp B/P (MAP) Pulse Ox O2 Delivery O2 Flow Rate FiO2 07/17/24 01:13 72 15 117/71 (86) 98 07/17/24 00:00 0 07/16/24 22:24 98.2 General: Patient is alert and not oriented, not in acute distress, uncooperative to examination Head: Normocephalic with an atraumatic Eyes: Pupils- 3mm, reacting to light, conjunctiva- anicteric Nose and throat: No polyps, septum- normal, no mucosal ulcers Neck: Supple, no lymphadenopathy, no carotid bruit Respiratory: No use of accessory muscles of respiration, Bilateral normal vesicular breath sounds heard. No wheeze, rhochi or creps Cardiac: S1-S2 heard, rythm regular, no gallop/murmur Abdomen: non distended, no tenderness, no organomegaly, bowel sounds - heard Extremities: no clubbing, no pedal edema, no deformities, peripheral pulses - 2+ Skin: warm and dry, no rash, no purpura Diagnostic Data Last Recorded Lab Results: 07/16/24223007/16/242230 Diagnostic Data: Laboratory Tests Test 07/16/24 22:31 Prothrombin Time 10.6 SECONDS (9.0-12.0) INR International Normalized Ratio 1.0 INR Activated Partial Thromboplast Time 25 SECONDS (22-32) D-Dimer 0.27 MG/L FEU (0-0.50) D-Dimer Comment Coagulation Comments Advance Care Planning Advanced Care plannin - 30 Minutes (Full code by default) Additional Plan A 58-year-old male with no known past medical history was brought to the ED by EMS after cardiac arrest and successful resuscitation with CPR and a single shock. He is being admitted into the hospital for further evaluation and management. Plan: Cardiac arrest with successful ROSC Pulseless ventricular tachycardia Patient required a single shock of 200 joules. Unsure about whether V-tach is monomorphic or polymorphic. As per the ED, his QT interval was prolonged above 550. The patient received 2 g of magnesium and a loading dose of 150 mg IV amiodarone. He is currently on amiodarone drip running at 1 mg/minute. Follow up with echocardiogram to look for any structural abnormalities of the heart. Consider Cardiology consultation for possible defibrillator implantation. Maintain potassium above four and magnesium above two. ZARINA versus CKD Baseline appears to be creatinine of 1.41. EGFR 44. Continue fluids at 75 mL/hour. Continue strict I&Os. Type 2 MA vs NSTEMI Elevation in troponins - 41, 261, 414, 3401. Patient allergic to aspirin. Started the patient on heparin drip. Follow up with lipid panel. Code Status: Full code by default DVT Prophylaxis: Heparin subQ Analgesia/Sedation: Tylenol Lines/Tubes: PIV Nutrition: NPO for any potential procedures in the morning PT: Ordered Prognosis: Guarded Disposition: We will admit the patient into medical haro. Continue telemetry monitoring. Consider Cardiology consultation. Taylor Keene MD Internal Medicine Resident PGY-1 Date of Service: July 17, 2024 Billing Provider: KERON DOUGLAS MD,TAYLOR BARFIELD, RES July 17, 2024 02:33
[2024-07-17 02:47] LABS: PHOSPHORUS 3.3 MG/DL (2.3-4.5)
[2024-07-17 03:16] LABS: HEMOGLOBIN A1C 5.6 % (4.5-6.2)
[2024-07-17 03:16] LABS: BILIRUBIN,URINE NEGATIVE (Neg); CLARITY,URINE CLEAR (Clear); COLOR,URINE YELLOW (Yellow); GLUCOSE, URINE NEGATIVE (Neg); KETONES,URINE NEGATIVE (Neg); LEUKOCYTE ESTERASE ,URINE NEGATIVE (Neg); NITRITES, URINE NEGATIVE (Neg); OCCULT BLOOD,URINE TRACE-INTACT (Neg); PROTEIN,URINE 30 mg/dl (Neg); UROBILINOGEN,URINE 0.2 E.U/dL (0.2-1.0)
[2024-07-17 03:31] LABS: URINE AMPHETAMINE SCREEN NEGATIVE (Neg); URINE BARBITUATE SCREEN NEGATIVE (Neg); URINE BENZODIAZEPINES SCREEN NEGATIVE (Neg); URINE CANNABINOID SCREEN NEGATIVE (Neg); URINE COCAINE SCREEN NEGATIVE (Neg); URINE METHADONE SCREEN NEGATIVE (Neg); URINE OPIATE SCREEN NEGATIVE (Neg); URINE PHENCYCLIDINE SCREEN NEGATIVE (Neg)
[2024-07-17 03:41] LABS: UA COLLECTION TYPE URINAL
[2024-07-17 03:43] LABS: BACTERIA,URINE NONE SEEN /HPF (Neg); RBC,URINE 0-2 /HPF (0-2); SQUAMOUS EPITHELIAL CELL,UR NONE SEEN /LPF (FEW); WBC,URINE NONE SEEN /HPF (0-4)
[2024-07-17] MEDS: normal saline 1000ml 1,000 ML IV SCH (04:16)
[2024-07-17] MEDS: magnesium sulf-water 2g/50mL 50 ML IV PRN (05:14)
--- NOTE | 2024-07-17 05:17 | ELECTROCARDIOGRAPH REPORT ---
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 Ulices Saldivar Measurements Intervals [place] Rate: 83 P: 63 MI: 172 QRS: 4 QRSD: 98 T: -13 QT: 454 QTc: 534 Interpretive Statements Sinus rhythm Low voltage, extremity and precordial leads Borderline ST depression, diffuse leads Prolonged QT interval Baseline wander in lead(s) I Electronically Signed On 07-17-2024 17:20:[address] Ulices Saldivar Please click the below link to view image of tracing.
--- NOTE | 2024-07-17 06:09 | RADIOLOGY REPORT ---
EXAM: CT Head Without Intravenous Contrast CLINICAL INDICATION: confusion TECHNIQUE: Axial computed tomography images of the head/brain without intravenous contrast. This CT exam was performed using one or more of the following dose reduction techniques: automated exposure control, adjustment of the mA and/or kV according to patient size, and/or use of iterative reconstru ction technique. CONTRAST: COMPARISON: None FINDINGS: BRAIN AND EXTRA-AXIAL SPACES: The cerebral and cerebellar sulci are mildly prominent consistent wit h mild brain atrophy. No acute intracranial hemorrhage, midline shift or mass effect. If symptoms pe rsist, further evaluation with MRI is recommended. Mild areas of decreased attenuation in the deep c erebral white matter are consistent with mild small vessel ischemic/degenerative changes. BONES/JOINTS: Unremarkable. No acute fracture. SOFT TISSUES: Unremarkable. SINUSES: Unremarkable as visualized. No acute sinusitis. MASTOID AIR CELLS: Unremarkable as visualized. No mastoid effusion. OTHER FINDINGS: . . IMPRESSION: 1. No acute intracranial hemorrhage, midline shift or mass effect. If symptoms persist, further eval uation with MRI is recommended. 2. Mild small vessel ischemic/degenerative changes.
[2024-07-17] MEDS ORDERED: heparin 10,000 units/1 ML INJ IV PRN (06:20)
[2024-07-17] MEDS: MESSAGE TO NURSING IV ONE (06:30)
[2024-07-17] MEDS ORDERED: magnesium sulf-water 2g/50mL 50 ML IV PRN (06:45)
[2024-07-17] MEDS: HEPARIN DRIP-CARDIAC**PHARMACIST-TO-DOSE IV ONE (07:03)
[2024-07-17] MEDS: heparin 10,000 units/1 ML INJ IV ONE (07:05)
[2024-07-17] MEDS: heparin 25,000 UNIT/250ml bag 250 ML IV PRN (07:06)
[2024-07-17 07:17] LABS: BASOPHILS % (AUTO) 0.5 % (0-1); EOSINOPHILS % (AUTO) 0.7 % (0-6); HEMATOCRIT 39.3 % (42.0-52.0); LYMPHOCYTES # (AUTO) 1.1 X10'3 (1.1-4.8); LYMPHOCYTES % (AUTO) 15.6 % (21-51); MEAN CORPUSCULAR HEMOGLOBIN 27.8 PG (27.0-31.0); MEAN CORPUSCULAR VOLUME 84.2 FL (78-98); MEAN PLATELET VOLUME 8.4 FL (7.4-10.4); MONOCYTES # (AUTO) 0.7 X10'3 (0-0.9); MONOCYTES % (AUTO) 9.6 % (2-12); NEUTROPHILS # (AUTO) 5.3 X10'3 (1.8-7.7); NEUTROPHILS % (AUTO) 73.6 % (42-75); PLATELET COUNT 209 X10'3 (140-440); RED BLOOD COUNT 4.66 X10'6 (4.70-6.10); RED CELL DISTRIBUTION WIDTH 14.2 % (11.5-14.5); WHITE BLOOD COUNT 7.2 X10'3 (4.5-11.0)
[2024-07-17 07:30] LABS: APTT 25 SECONDS (22-32); PROTHROMBIN TIME 10.1 SECONDS (9.0-12.0)
[2024-07-17] MEDS ORDERED: K and/or MAG REPLACEMENT MC SCH (08:00)
[2024-07-17] MEDS: K and/or MAG REPLACEMENT MC SCH (08:00)
[2024-07-17] MEDS ORDERED: heparin, porcine 5000 units/ml vial SQ SCH (08:00)
--- NOTE | 2024-07-17 12:55 | CONSULTATION REPORT ---
Cardiac Consultation Report Providers to CC ~ Subjective Subjective Cardiology consultation: 58-year-old male was being transported to the emergency room according to records in the charts and he had ventricular tachycardia pulseless received CPR and cardioversion by paramedics. Patient denies that he had substernal chest pain and left arm pain. It is unclear how the paramedics became involved. The patient has schizophrenia and does not take any medication [address] [place] [address] no longer lives at the [place]. He now has not address at [facility] in [place]. He has had multiple visits to the emergency room for nausea vomiting most recently on 07/11/2024 where his chart was populated with long list of medications that he absolutely states he does not take. He admits to being allergic to Haldol penicillin aspirin and fish. Presently he is on intravenous heparin because post CPR and cardioversion his troponin was 3.2. Hospital staff have talked to the patient about having a heart catheterization in the absolutely refuses. He would like to go home. He admits to taking narcotic pills. His electrocardiogram is reviewed there is no acute ST-elevation or depression. No Q-waves. He has marked QT prolongation. He is on intravenous amiodarone at this time. Objective Vitals Vital Signs Date Time Temp Pulse Resp B/P (MAP) Pulse Ox O2 Delivery O2 Flow Rate FiO2 07/17/24 11:28 98.3 62 12 125/81 (96) 96 N/A 07/17/24 00:00 0 Lab Results: 07/17/24 0643 07/16/24 2231 Objective He is bearded somewhat truck Nataly appearing. Obese. Comfortable otherwise. Intravenous heparin intravenous amiodarone is infusing. Carotid no bruit chest clear to auscultation percussion heart no murmur heard no S3 gallop no rub abdomen protuberant pulses plus two in upper extremities plus two in feet. No edema. No nystagmus no tremor. Speech fluent. He has socks on. Coagulation Studies Laboratory Tests Test 07/16/24 22:31 07/17/24 06:40 D-Dimer 0.27 MG/L FEU (0-0.50) D-Dimer Comment Prothrombin Time 10.1 SECONDS (9.0-12.0) INR International Normalized Ratio 1.0 INR Activated Partial Thromboplast Time 25 SECONDS (22-32) Coagulation Comments Problem\Assessment\Plan Additional Plan Impression: 1. Troponin elevated due to CPR and direct current cardioversion. 2. Marked QT prolongation on electrocardiogram with past history of Haldol allergy. 3. Patient on unspecified narcotics by his history. 4. Untreated schizophrenia by chart history. Recommendation one discontinue intravenous heparin 2. Discontinue amiodarone amiodarone may also cause QT prolongation. 3. Continue on monitoring. Increase activity as tolerated. 4. Psychiatric consultation to hopefully reestablish treatment and have a diagnosis. 5. Echocardiogram pending 6. Obtain TSH free T4. Management is expectant pending on development. It would be valuable to have prior electrocardiograms from old records to compare to present. CHRIS ARNDT MD July 17, 2024 12:55
[2024-07-17 15:35] LABS: FREE T4 (FREE THYROXINE) 1.11 NG/DL (0.73-1.40); THYROID STIMULATING HORMONE 1.43 ulU/ml (0.34-4.50)
--- NOTE | 2024-07-17 16:39 | CARDIOLOGY REPORT ---
APPROVED REPORT EXAM: Comprehensive 2D, Doppler, and color-flow Echocardiogram. 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 143.9 cm/s AoV VTI 27.4 cm AO Peak GR. 8.3 mmHg AO Mean GR. 4 mmHg LVOT VTI 23.89 cm LVOT Peak Brian. 119.7 cm/s MARGARITA(VTI)/BSA 2.89 cm2/m2 MARGARITA (VTI) 2.89 cm2 Mitral Valve MV E Velocity 87.1 cm/s MV Peak Gr. 4 mmHg MV DECEL TIME 180 ms MV A Velocity 71.9 cm/s MV PHT 68 ms E/A Ratio 1.2 MVA (PHT) 3.24 cm2 MV VMax98.7 cm/s TDI Lateral E' P. V9.59 cm/s E/Lateral E' 9.1 Tricuspid Valve TR P. Velocity 255 cm/s RAP ESTIMATE 10 mmHg TR Peak Gr. 26 mmHg RVSP 36 mmHg LEFT VENTRICLE Normal LV size and wall thickness. Overall systolic function is normal. Overall LVEF is 65-70%. RIGHT VENTRICLE Right ventricle is mild to moderately dilated with adequate function. ATRIA The left atrium size is normal. AORTIC VALVE Trileaflet AV appears mildly sclerotic without stenosis. No insufficiency. MITRAL VALVE Mitral valve leaflets are mildly thickened with mild annular calcification. No stenosis. Mild regurgi tation. TRICUSPID VALVE The tricuspid valve is normal in structure with trace regurgitation. PULMONIC VALVE The pulmonary valve is normal in structure with physiologic insufficiency. GREAT VESSELS The aortic root is normal in size. The ascending aorta is normal in size. The IVC is normal in size a nd collapses >50% with inspiration. PERICARDIUM Normal pericardium. No effusion. Other Information Study Quality: Adequate Conclusion Overall LVEF is 65-70%. Normal LV size and wall thickness. Overall systolic function is normal. Right ventricle is mild to moderately dilated with adequate function. Trileaflet AV appears mildly sclerotic without stenosis. No insufficiency. Mitral valve leaflets are mildly thickened with mild annular calcification. No stenosis. Mild regur gitation. The tricuspid valve is normal in structure with trace regurgitation. The pulmonary valve is normal in structure with physiologic insufficiency. Normal pericardium. No effusion.
--- NOTE | 2024-07-17 19:54 | PROGRESS NOTE ---
Daily Progress Note Providers to CC ~ Antibiotic Timeout Antibiotic Ordered?: No Subjective The patient really wanted to be discharged I spoke with Dr. Flores the tour production supervisor about the case who went to evaluate the patient for possible cardiac catheterization the patient did not want a cardiac catheterization- the amiodarone drip is discontinued as the patient has prolonged QT on EKG currently not on any psych medications Objective Vital Signs Date Time Temp Pulse Resp B/P (MAP) Pulse Ox O2 Delivery O2 Flow Rate FiO2 07/17/24 18:30 63 07/17/24 17:00 12 114/72 (86) 07/17/24 15:22 97.6 97 Room Air 07/17/24 00:00 0 Result Diagram: 07/17/24 0643 07/16/24 2231 Gen. No acute distress alert and oriented 4 Lungs clear to ascultation bilaterally, no wheezes rales or rhonchi appreciated Heart normal sinus rhythm no murmurs rubs or clicks noted Abdomen soft nontender bowel sounds are normoactive Lower extremities no clubbing cyanosis, nor edema appreciated bilaterally Coagulation Studies Laboratory Tests Test 07/16/24 22:31 07/17/24 06:40 07/17/24 13:48 D-Dimer 0.27 MG/L FEU (0-0.50) D-Dimer Comment Prothrombin Time 10.1 SECONDS (9.0-12.0) INR International Normalized Ratio 1.0 INR Activated Partial Thromboplast Time 25 SECONDS (22-32) APTT (Heparin Protocol) 35 SECONDS (45-60) L Coagulation Comments Problem\Assessment\Plan Problems/Diagnosis: (1) Cardiopulmonary arrest with successful resuscitation # ventricular tachycardia cardiac arrest status post resuscitation Continued telemetry monitoring # type 2 mi secondary to CPR and direct cardioversion Power System Electrical Engineer Dr. Flores evaluated the patient and recommended a cardiac catheterization The patient declined a cardiac catheterization # prolonged QT- Dr. Flores discontinued amiodarone as this can prolonged QT Free T4 and TSH are normal # untreated schizophrenia- We will need psychiatric evaluation. # chronic stage 3 kidney disease- Monitor daily metabolic panels to evaluate for ZARINA # DVT prophylaxis SQ heparin Date of Service: July 17, 2024 Billing Provider: CHUY MURPHY DO Common Visit Codes: NOT BILLABLE (Admitted after midnight to be billed by roofing machine tender) CHUY MURPHY DO July 17, 2024 19:54
[2024-07-17] MEDS: heparin, porcine 5000 units/ml vial SQ SCH (23:25)
[2024-07-18 02:00] VITALS: BP 121/72; PULSE 67; RESP 15; TEMP 97.2; O2SAT 94
[2024-07-18 06:48] LABS: BASOPHILS # (AUTO) 0.1 X10'3 (0-0.2); BASOPHILS % (AUTO) 1.4 % (0-1); EOSINOPHILS # (AUTO) 0.1 X10'3 (0-0.9); EOSINOPHILS % (AUTO) 0.8 % (0-6); HEMATOCRIT 41.1 % (42.0-52.0); HEMOGLOBIN 13.6 g/dl (14.0-17.9); LYMPHOCYTES # (AUTO) 1.2 X10'3 (1.1-4.8); LYMPHOCYTES % (AUTO) 16.4 % (21-51); MEAN CORPUSCULAR HEMOGLOBIN 27.8 PG (27.0-31.0); MEAN CORPUSCULAR VOLUME 84.3 FL (78-98); MEAN PLATELET VOLUME 8.8 FL (7.4-10.4); MONOCYTES # (AUTO) 0.7 X10'3 (0-0.9); MONOCYTES % (AUTO) 10.1 % (2-12); NEUTROPHILS % (AUTO) 71.3 % (42-75); PLATELET COUNT 183 X10'3 (140-440); RED BLOOD COUNT 4.88 X10'6 (4.70-6.10); RED CELL DISTRIBUTION WIDTH 14.1 % (11.5-14.5); WHITE BLOOD COUNT 7.1 X10'3 (4.5-11.0)
[2024-07-18 06:56] VITALS: BP 126/81; PULSE 75; RESP 16; TEMP 97.7; O2SAT 97
[2024-07-18 07:24] LABS: ALANINE AMINOTRANSFERASE 36 U/L (12-78); ALBUMIN 2.9 G/DL (3.4-5.0); ALBUMIN/GLOBULIN RATIO 0.8 (1.1-1.5); ALKALINE PHOSPHATASE 75 IU/L (46-116); ANION GAP 9 (8-16); ASPARTATE AMINO TRANSFERASE 55 U/L (10-37); BILIRUBIN,TOTAL 0.6 MG/DL (0.1-1.0); BLOOD UREA NITROGEN 12 MG/DL (7-18); CALCIUM 8.3 MG/DL (8.5-10.1); CHLORIDE 108 MMOL/L (99-107); CHOL/HDL RATIO 4.2 (0.00-4.99); CHOLESTEROL 142 MG/DL (0-200); GLUCOSE 101 MG/DL (70-104); HDL CHOLESTEROL 34 MG/DL (35-60); LDL CHOLESTEROL 85 MG/DL (50-100); MAGNESIUM 1.9 MG/DL (1.5-2.4); POTASSIUM 4.3 MMOL/L (3.5-5.1); SODIUM 143 MMOL/L (135-145); TOTAL CARBON DIOXIDE 26.4 MMOL/L (24-32); TOTAL PROTEIN 6.7 G/DL (6.4-8.2); TRIGLYCERIDES 184 MG/DL (20-135); eCRCL 46 ML/MIN; eGFR 48 ML/MIN
[2024-07-18 08:00] VITALS: RESP 16; O2SAT 97
[2024-07-18] MEDS: clopidogrel 75mg tablet PO SCH (08:00)
[2024-07-18] MEDS: aspirin 81mg tab.chew PO SCH (08:10)
[2024-07-18 11:49] VITALS: BP 116/79; PULSE 73; RESP 17; TEMP 97.9; O2SAT 97
[2024-07-18] MEDS ORDERED: CLOP75TA34 PO (13:40)
[2024-07-18] MEDS ORDERED: ASPI81TA53 PO (13:40)
--- NOTE | 2024-07-18 18:17 | DISCHARGE SUMMARY ---
Discharge Summary Providers to CC ~ Discharge Summary Admission Diagnosis: Cardiac arrest Hospital Course DATE OF ADMISSION: 07/17/2024 DATE OF DISCHARGE: 07/18/2024 Discharge Diagnosis\\Comment: Ventricular tachycardia cardiac arrest, NSTEMI, prolonged QT, untreated schizophrenia, chronic stage 3 kidney disease Operations\\Procedures: None Consultants: Dr. Stephen Flores taxi truck driver's Complications: None Condition on DC: Stable New Medications: Aspirin (Children's Aspirin) 81 Mg Tab.chew 81 MG PO DAILY@0830, #30 TAB.CHEW Clopidogrel Bisulfate (Clopidogrel) 75 Mg Tablet 75 MG PO DAILY, #30 TAB Do not stop medication unless instructed by prescriber. Discontinued Medications: Home Med List (No Home Medications) Each Discharge Summary: The patient was admitted by resident physician JAYANT Bartholomew under the supervision of KERON Tuttle MD with the following HPI:"The patient is a 58-year-old male with no known past medical history, was brought to the ED by EMS after cardiac arrest. The patient is not oriented to time, person. History is obtained from previous records and ED physician's notes. Initially, the patient called EMS for chest pain radiating into his left arm. EN route to the hospital, the patient developed V-tach and lost pulses. He received CPR and shock after which he achieved ROSC. In the ER, he is repeatedly asking for discharge and did not want to get admitted. He can not remember the events happened to him earlier and he is disoriented." The patient's mentation improved the following morning in his high sensitivity troponins up trended to a level of 3401. I spoke with Dr. Stephen Flores taxi truck driver who evaluated the patient and offered take the patient to the cardiac catheterization lab however the patient did not want a cardiac catheterization. The patient was placed on aspirin and Plavix and an echocardiogram was obtained which was unremarkable with an LVEF of 65-70%. The patient has prolonged QT and a she was started on amiodarone which was disc ontinued- the patient is not on any medications for schizophrenia as this may has been a cause otherwise of the prolonged QT I did speak with the patient about psychiatric consultation during hospitalization however the patient did not want psychiatric consultation and wanted to be discharge. Patient has chronic stage 3 kidney disease which slightly improved during hospitalization his initial creatinine was 1.6 and on day discharge was 1.50. The patient was discharged with a prescription for aspirin and Plavix however the patient declined medications on the morning of discharge and likely will not take these medications. Gen. No acute distress alert and oriented to person, place, month and year Lungs clear to ascultation bilaterally, no wheezes rales or rhonchi appreciated Heart normal sinus rhythm no murmurs rubs or clicks noted Abdomen soft nontender bowel sounds are normoactive Lower extremities no clubbing cyanosis, nor edema appreciated bilaterally. The patient felt ready to be discharged and was medically cleared to be discharged on 07/18/2024 The patient was seen and evaluated on day of discharge. Time spent on discharge 35 minutes *Problems/Diagnosis: (1) Cardiopulmonary arrest with successful resuscitation Status: Acute Total Time Spent on D/C: > 30 Minutes Date of Service: July 18, 2024 Billing Provider: CHUY MURPHY DO Common Visit Codes: 77141-TLX/OBS DISCH DAY >30min CHUY MURPHY DO July 18, 2024 18:17
== END 2024-07-18 15:38 | disposition home or self-care (01) | DRG 201 ==
LOC: ER 22:24 → ED HOLD 07-17 02:26 → PCU 3S 07-17 05:55
PROVIDERS: ADMIT Surgery; ATTEND Family Medicine
PROC: 5A2204Z Restoration of Cardiac Rhythm, Single (ICD-10-PCS; principal; 2024-07-17)
PROC: 5A12012 Performance of Cardiac Output, Single, Manual (ICD-10-PCS; 2024-07-17)
DX: I47.20 Ventricular tachycardia, unspecified (principal); I46.9 Cardiac arrest, cause unspecified; I21.A1 Myocardial infarction type 2; F20.9 Schizophrenia, unspecified; E78.00 Pure hypercholesterolemia, unspecified; I12.9 Hypertensive chronic kidney disease with stage 1 through stage 4 chronic kidney disease, or unspecified chronic kidney disease; F41.9 Anxiety disorder, unspecified; N18.30 Chronic kidney disease, stage 3 unspecified; J44.9 Chronic obstructive pulmonary disease, unspecified; Z88.8 Allergy status to other drugs, medicaments and biological substances; Z79.899 Other long term (current) drug therapy; Z88.0 Allergy status to penicillin; Z91.018 Allergy to other foods; Z59.00 Homelessness unspecified
CPT/HCPCS: 36415; 70450; 71045; 80053; 80061; 80305; 81001; 83036; 83605; 83735; 83880; 84100; 84439; 84443; 84484; 85025; 85379; 85610; 85730; 86704; 86705; 87340; 93005; 93306; 97116; 97161; 97530; 99291; G0378; J0282; J1644; J7030

== ENCOUNTER 2024-08-13 23:12 | Emergency (ER) | payer MEDICAID ==
[~2024-08-13] VITALS: Ht 165.1 cm; Wt 96.0 kg
[~2024-08-13 23:12] MED LIST changes: -ALBU18HF2 INH; -ALBU8.5H17 IH; -ALBU90AE INH; +ASPI81TA53 PO; -AZIT250T PO; +CLOP75TA34 PO; -COLC0.6C3 PO; -CYCL-1 PO; -DICL100G15 TOP; -FAMO40TA73 PO; -IBUP-862 PO; -LIDO700A32 TOP; -MELO-100 PO; -ORPH100T4 PO
[2024-08-13 23:16] VITALS: BP 118/81; PULSE 88; TEMP 98.4; O2SAT 95
--- NOTE | 2024-08-13 23:53 | Physician Documentation ---
History of Present Illness ~ Chief Complaint: Mechanical Fall Stated Complaint: FALL Time Seen by MD: 23:14 [facility] Doctor[facility] Patient presents to the emergency room after having fallen out of bed. He rolled over out of his bed falling onto the floor. Positive head strike. He is on blood thinners. Tetanus within 5 Years?: No Medication Reconciliation Allergies: Coded Allergies: Haloperidol Lactate (Verified Allergy, Unknown, 07/11/24) Penicillins (Verified Allergy, Unknown, 07/11/24) haloperidol (Verified Allergy, Unknown, 07/11/24) Uncoded Allergies: FISH (Allergy, Unknown, 08/30/16) ASA (Adverse Reaction, Mild, 07/11/24) "hurts my stomach" Scheduled Aspirin (Children's Aspirin), 81 MG PO DAILY@0830 Clopidogrel Bisulfate (Clopidogrel), 75 MG PO DAILY Past Medical History Past Medical History: Headache, High Cholesterol, Hypertension, Asthma, COPD, Hernia, Chronic Back Pain, Anxiety, Psychosis, Schizophrenia Past Surgical History: abdominal surgery, cholecystectomy, other Other Past Surgical History: hernia repair Alcohol Use: None Drug Use: none Lives In: Homeless Occupation: unemployed, disabled Review of Systems ROS All review of systems negative except as per HPI Physical Exam Vital Signs: Temperature: 98.4, Source: Oral, Heart Rate: 88, Respiratory Rate: 18, BP: 118/81, Pulse Oximetry: 95, Weight: 96.000 Oxygen Flow Rate: 0 Physical Exam General: Patient is awake, alert, oriented x4 in no acute distress and well appearing.~ Head: Normocephalic and atraumatic. Eyes: Conjunctival normal. EOMI. PERRL. ENT: Mucous membranes moist. Neck: Supple, trachea is midline. No cervical midline tenderness Chest: Clear to auscultation bilaterally without rales, rhonchi, or wheezes. There is no accessory muscle use or retractions. Cardiac: RRR without murmurs, gallops, or rubs. Progress Results/Orders Results/Orders Orders - BRADY PAULA MD Ct Head (08/13/24 23:15) Ankle,Limited (Ap/Lat) (08/14/24 00:07) Elbow, Complete (3vw Min) (08/14/24 00:07) Knee Limited (Ap/Lat) (08/14/24 00:07) Completed Orders - BRADY PAULA MD Ct Head (08/13/24 23:15) Acetaminophen 325mg Tablet (Tylenol Tabl (08/13/24 23:55) Ankle,Limited (Ap/Lat) (08/14/24 00:07) Elbow, Complete (3vw Min) (08/14/24 00:07) Knee Limited (Ap/Lat) (08/14/24 00:07) Vital Signs 08/13/24 23:16 Temp 98.4 Pulse 88 Resp 18 B/P (MAP) 118/81 Pulse Ox 95 O2 Flow Rate 0 EKG/XRAY/CT/US/VASC/MRI Bone/Soft Tissue X-Ray (Ext.) : Additional Comment X-ray series of right elbow interpreted by myself is negative for fracture dislocation or foreign bodies X-ray series of right knee interpreted by myself is negative for fractures dislocation or foreign bodies X-ray series of right ankle interpreted by myself is negative for fractures dislocations or foreign bodies Medical Decision Making Findings Patient presents to the emergency room with reported head strike after falling off of his bed as per HPI. Monzon's on thinners therefore CT scan ordered. Differentials include but are not limited to epidural bleed, subdural bleed, intraparenchymal bleed, fractures dislocations and foreign bodies. CT scan is reassuring of the head and x-ray is reassuring of the affected elbow ankle and knee. I do see patient moving his elbow freely and he had not feel he requires opioid medications. Departure Disposition: HOME / SELF CARE / HOMELESS Impression: Primary Impression: Fall Condition: Stable Discharge Instructions: Fall Prevention in the Home, Adult, [id number] Referrals: NO PRIMARY CARE PROVIDER (PCP) Signature Scribe Signature: No scribe Attestation: The note accurately reflects work and decisions made by me.Brady Paula MD 08/14/24 01:05 BRADY PAULA MD Aug 13, 2024 23:53
--- NOTE | 2024-08-14 00:39 | RADIOLOGY REPORT ---
CT BRAIN WITHOUT CONTRAST HISTORY: fall on thinners TECHNIQUE: Axial scans were obtained from the skull base through the vertex without contrast. Sagitta l and coronal reformats were generated. One or more of the following radiation dose reduction techniq ues were used for this examination: automated exposure control, adjustment of the mA and/or kV accord ing to patient size, use of iterative reconstruction technique. COMPARISON: CT CT HEAD on DOS: 07/17/24 FINDINGS: No acute intracranial hemorrhage or evidence of large vessel territorial infarction identified at thi s time. No midline shift. The basilar cisterns are patent. Fernandez-white differentiation appears relati vely preserved. The visualized paranasal sinuses and mastoid air cells are clear. No grossly displaced calvarial frac ture is identified. IMPRESSION: No acute intracranial findings.
[2024-08-14] MEDS: acetaminophen 325mg tablet PO ONE (01:07)
--- NOTE | 2024-08-14 01:13 | RADIOLOGY REPORT ---
EXAM: DI ANKLE,LIMITED (AP/LAT) CLINICAL HISTORY: pain COMPARISON: None TECHNIQUE: DI ANKLE,LIMITED (AP/LAT) Findings/Impression: . There is no evidence of an acute fracture, dislocation, blastic, or lytic lesions. No radiopaque foreign bodies. No joint effusion or superficial soft tissue abnormalities.
--- NOTE | 2024-08-14 01:14 | RADIOLOGY REPORT ---
EXAM: DI ELBOW, COMPLETE (3VW MIN) CLINICAL HISTORY: pain COMPARISON: DI ANKLE, COMPLETE(3VW MIN) on DOS: 03/22/24, DI ELBOW, COMPLETE (3VW MIN) on DOS: 03/05/ 4, ANKLE, COMPLETE(3VW MIN) on DOS: 09/21/21 TECHNIQUE: 3 views of the right elbow. Findings/Impression: . There is no evidence of an acute fracture, dislocation, blastic, or lytic lesions. No radiopaque foreign bodies. Small anterior knee joint effusion mild diffuse soft tissue edema.
--- NOTE | 2024-08-14 01:20 | RADIOLOGY REPORT ---
EXAM: DI KNEE LIMITED (AP/LAT) CLINICAL INDICATION: pain TECHNIQUE: DI right KNEE LIMITED (AP/LAT) Comparison: None FINDINGS/IMPRESSION: There is no evidence of acute fracture or dislocation. The visualized joint space is well maintained. The alignment is anatomical. There is no radiopaque foreign body.
[2024-08-14 01:44] VITALS: RESP 14
== END 2024-08-14 01:46 | disposition home or self-care (01) ==
LOC: ER 23:13
DX: Z04.3 Encounter for examination and observation following other accident (principal); E78.00 Pure hypercholesterolemia, unspecified; F20.9 Schizophrenia, unspecified; I10 Essential (primary) hypertension; J44.9 Chronic obstructive pulmonary disease, unspecified; F41.9 Anxiety disorder, unspecified; Z88.0 Allergy status to penicillin; Z90.49 Acquired absence of other specified parts of digestive tract; Z98.890 Other specified postprocedural states; W06.XXXA Fall from bed, initial encounter; Y93.89 Activity, other specified; Y92.89 Other specified places as the place of occurrence of the external cause; Y99.8 Other external cause status
CPT/HCPCS: 29515; 70450; 73080; 73560; 73600; 99284; L4360

== ENCOUNTER 2024-08-15 21:11 | Emergency (ER) | payer MEDICAID ==
[~2024-08-15] VITALS: Ht 165.1 cm; Wt 125.0 kg
--- NOTE | 2024-08-15 23:42 | RADIOLOGY REPORT ---
EXAM: DI FOOT, COMPLETE (3VW MIN) HISTORY: R foot pain COMPARISON: DI ELBOW, COMPLETE (3VW MIN) on DOS: 08/14/24, DI ELBOW, COMPLETE (3VW MIN) on DOS: 03/05/ 4 TECHNIQUE: Right DI FOOT, COMPLETE (3VW MIN) Findings / IMPRESSION: No acute fracture or dislocation. No destructive osseous lesions. No radiopaque foreign objects. Mil d diffuse bony demineralization. Mild soft tissue edema. Large posterior calcaneal enthesophyte.
[2024-08-16 00:55] LABS: BASOPHILS # (AUTO) 0.1 X10'3 (0-0.2); BASOPHILS % (AUTO) 0.6 % (0-1); EOSINOPHILS % (AUTO) 0.5 % (0-6); HEMATOCRIT 43.8 % (42.0-52.0); HEMOGLOBIN 14.7 g/dl (14.0-17.9); LYMPHOCYTES # (AUTO) 1.4 X10'3 (1.1-4.8); LYMPHOCYTES % (AUTO) 14.8 % (21-51); MEAN CORPUSCULAR HGB CONC 33.5 g/dL (33.0-36.5); MEAN CORPUSCULAR VOLUME 83.6 FL (78-98); MEAN PLATELET VOLUME 9.1 FL (7.4-10.4); MONOCYTES # (AUTO) 0.9 X10'3 (0-0.9); MONOCYTES % (AUTO) 9.7 % (2-12); NEUTROPHILS # (AUTO) 6.8 X10'3 (1.8-7.7); NEUTROPHILS % (AUTO) 74.4 % (42-75); PLATELET COUNT 225 X10'3 (140-440); RED BLOOD COUNT 5.24 X10'6 (4.70-6.10); RED CELL DISTRIBUTION WIDTH 14.1 % (11.5-14.5); WHITE BLOOD COUNT 9.2 X10'3 (4.5-11.0)
[2024-08-16 01:11] LABS: ALANINE AMINOTRANSFERASE 21 U/L (12-78); ALBUMIN 3.4 G/DL (3.4-5.0); ALBUMIN/GLOBULIN RATIO 0.6 (1.1-1.5); ALKALINE PHOSPHATASE 87 IU/L (46-116); ANION GAP 10 (8-16); ASPARTATE AMINO TRANSFERASE 18 U/L (10-37); BILIRUBIN,TOTAL 0.9 MG/DL (0.1-1.0); BLOOD UREA NITROGEN 17 MG/DL (7-18); BUN/CREATININE RATIO 9.6 (10.0-20.0); CALCIUM 9.2 MG/DL (8.5-10.1); CHLORIDE 100 MMOL/L (99-107); CREATININE 1.77 MG/DL (0.60-1.10); GLUCOSE 109 MG/DL (70-104); POTASSIUM 4.4 MMOL/L (3.5-5.1); SODIUM 139 MMOL/L (135-145); TOTAL CARBON DIOXIDE 29.4 MMOL/L (24-32); TOTAL PROTEIN 8.9 G/DL (6.4-8.2); eGFR 39 ML/MIN
[2024-08-16 02:49] LABS: BILIRUBIN,URINE NEGATIVE (Neg); CLARITY,URINE CLEAR (Clear); COLOR,URINE YELLOW (Yellow); GLUCOSE, URINE NEGATIVE (Neg); KETONES,URINE TRACE mg/dl (Neg); LEUKOCYTE ESTERASE ,URINE NEGATIVE (Neg); NITRITES, URINE NEGATIVE (Neg); OCCULT BLOOD,URINE NEGATIVE (Neg); PROTEIN,URINE NEGATIVE (Neg); UROBILINOGEN,URINE 0.2 E.U/dL (0.2-1.0)
[2024-08-16 02:50] LABS: UA COLLECTION TYPE URINAL
--- NOTE | 2024-08-16 04:56 | Physician Documentation ---
History of Present Illness ~ Chief Complaint: Weakness Stated Complaint: "NOT ABLE TO WALK" Time Seen by MD: 22:53 OK to notify your PCP?: Yes Primary Medical Doctor: [facility] Mode of Arrival: POV HPI 58 year old male presents reporting inability to walk on R leg. At first it was unclear if it was because of weakness or because of pain, but after several minutes of questioning I narrowed it down to the fact that his foot hurts. He denies injuring it, reports that it is swollen. Denies fevers, N/V/D. Medication Reconciliation Allergies: Coded Allergies: Haloperidol Lactate (Verified Allergy, Unknown, 08/15/24) Penicillins (Verified Allergy, Unknown, 08/15/24) haloperidol (Verified Allergy, Unknown, 08/15/24) Uncoded Allergies: FISH (Allergy, Unknown, 08/30/16) ASA (Adverse Reaction, Mild, 07/11/24) "hurts my stomach" Scheduled Aspirin (Children's Aspirin), 81 MG PO DAILY@0830 Clopidogrel Bisulfate (Clopidogrel), 75 MG PO DAILY Past Medical History Past Medical History: Headache, High Cholesterol, Hypertension, Asthma, COPD, Hernia, Chronic Back Pain, Anxiety, Psychosis, Schizophrenia Past Surgical History: abdominal surgery, cholecystectomy, other Other Past Surgical History: hernia repair Smoking Status: Unknown if ever smoked Alcohol Use: None Drug Use: none Lives In: Homeless Occupation: unemployed, disabled Review of Systems All Other Systems at this time: Reviewed and Negative Physical Exam Vital Signs: RN Vital Signs have been reviewed: Yes, Heart Rate: 84, Respiratory Rate: 18, BP: 111/84, Pulse Oximetry: 94 Oxygen Flow Rate: 0 Physical Exam HEENT: PERRL, moist oral mucosa, EOMI Pulmonary: No respiratory distress Cardiac: RRR, no murmur, rub or gallop GI: nondistended, soft, nontender, no guarding, no rebound MSK: no deformity;+swelling, +tenderness, +warmth to dorsum R ankle Skin: w/d/i, no rash Neuro: alert, nonfocal Psych: normal affect Progress Results/Orders Results/Orders Orders - DAVE OLIVARES MD Foot, Complete (3vw Min) (08/15/24 22:59) Vl Venous (08/15/24 23:00) Completed Orders - DAVE OLIVARES MD Urinalysis, Cult If Indicated (08/15/24 22:59) Foot, Complete (3vw Min) (08/15/24 22:59) Cbc/Diff (08/16/24 00:09) CMP (08/16/24 00:09) Vital Signs 08/15/24 08/15/24 08/15/24 08/16/24 21:17 23:34 23:43 00:59 Pulse 98 88 83 Resp 15 16 16 B/P (MAP) 125/80 141/86 (104) 115/81 (92) Pulse Ox 98 96 98 O2 Flow Rate 0 0 08/16/24 08/16/24 08/16/24 02:05 03:45 04:59 Pulse 82 84 81 Resp 16 18 14 B/P (MAP) 132/81 (98) 111/84 (93) 137/92 (107) Pulse Ox 97 94 96 O2 Flow Rate 0 0 0 Laboratory Tests Test 08/15/24 23:27 08/16/24 00:22 08/16/24 02:30 CBC Comment Chemistry Comments White Blood Count 9.2 Red Blood Count 5.24 Hemoglobin 14.7 Hematocrit 43.8 Mean Corpuscular Volume 83.6 Mean Corpuscular Hemoglobin 28.0 Mean Corpuscular Hemoglobin Concent 33.5 Red Cell Distribution Width 14.1 Platelet Count 225 Mean Platelet Volume 9.1 Neutrophils (%) (Auto) 74.4 Lymphocytes (%) (Auto) 14.8 L Monocytes (%) (Auto) 9.7 Eosinophils (%) (Auto) 0.5 Basophils (%) (Auto) 0.6 Neutrophils # (Auto) 6.8 Lymphocytes # (Auto) 1.4 Monocytes # (Auto) 0.9 Eosinophils # (Auto) 0.0 Basophils # (Auto) 0.1 Sodium Level 139 Potassium Level 4.4 Chloride Level 100 Carbon Dioxide Level 29.4 Anion Gap 10 Blood Urea Nitrogen 17 Creatinine 1.77 H Estimated GFR/1.73 m2 39 BUN/Creatinine Ratio 9.6 L Glucose Level 109 H Calcium Level 9.2 Total Bilirubin 0.9 Aspartate Amino Transf (AST/SGOT) 18 Alanine Aminotransferase (ALT/SGPT) 21 Alkaline Phosphatase 87 Total Protein 8.9 H Albumin 3.4 Globulin 5.5 H Albumin/Globulin Ratio 0.6 L Urine Specimen Description Urinal Urine Color Yellow Urine Clarity Clear Urine pH 6.0 Urine Specific Catron 1.020 Urine Protein Negative Urine Glucose (UA) Negative Urine Ketones Trace H Urine Occult Blood Negative Urine Nitrite Negative Urine Bilirubin Negative Urine Urobilinogen 0.2 Urine Leukocyte Esterase Negative Urine Culture Indicated Not ind Volume Urine Centrifuged 10 ml Urine Comment Medical Decision Making Findings 58 year old male with R ankle pain and swelling. Workup thus far reveals unremarkable laboratory studies and xray which only demonstrates chronic arthritis findings. DVT US pending, will sign out to oncoming ER physician. Additional Information Ddx = cellulitis, DVT, gout, sprain Departure Disposition: HOME / SELF CARE / HOMELESS Impression: Primary Impression: Foot pain Condition: Stable Referrals: NO PRIMARY CARE PROVIDER (PCP) Education Educated: Patient Signature Scribe Signature: . Attestation: . DAVE OLIVARES MD Aug 16, 2024 04:56
[2024-08-16 07:10] LABS: URIC ACID 9.4 MG/DL (3.5-7.2)
--- NOTE | 2024-08-16 08:02 | VASCULAR REPORT ---
EXAM: US Duplex Right Lower Extremity Veins CLINICAL INDICATION: Reason TECHNIQUE: Real-time duplex ultrasound scan of the right lower extremity veins integrating B-mode tw o-dimensional vascular structure, Doppler spectral analysis, color flow Doppler imaging and compressi on. COMPARISON: None FINDINGS: DEEP VEINS: Unremarkable. No DVT in the visualized common femoral, femoral, proximal deep femoral or popliteal veins. The veins demonstrate normal color flow, are normally compressible, with normal phasic flow and/or augmentation response. SUPERFICIAL VEINS: Unremarkable. No thrombus in the visualized great saphenous vein. SOFT TISSUES: No acute findings. No popliteal cyst. OTHER FINDINGS: . IMPRESSION: No DVT.
[2024-08-16] MEDS ORDERED: DEC1T PO (08:20)
[2024-08-16] MEDS ORDERED: COLC0.6C3 PO (08:20)
[2024-08-16] MEDS: dexamethasone 4mg tablet PO ONE (08:32)
[2024-08-16] MEDS: colchicine 0.6mg tablet PO ONE (08:32)
[2024-08-16 08:42] VITALS: BP 114/62; PULSE 93; RESP 21; O2SAT 94
== END 2024-08-16 08:35 | disposition home or self-care (01) ==
LOC: ER 21:13
DX: M79.671 Pain in right foot (principal); E78.00 Pure hypercholesterolemia, unspecified; F20.9 Schizophrenia, unspecified; I10 Essential (primary) hypertension; J44.9 Chronic obstructive pulmonary disease, unspecified; F41.9 Anxiety disorder, unspecified; Z56.0 Unemployment, unspecified; Z90.49 Acquired absence of other specified parts of digestive tract; Z59.00 Homelessness unspecified; Z98.890 Other specified postprocedural states; Z88.0 Allergy status to penicillin; Z88.8 Allergy status to other drugs, medicaments and biological substances; Z79.899 Other long term (current) drug therapy
CPT/HCPCS: 36415; 73630; 80053; 81003; 84484; 84550; 85025; 93971; 99285

== ENCOUNTER 2024-09-25 20:35 | Emergency (ER) | payer MEDICAID ==
[~2024-09-25 20:35] MED LIST changes: +COLC0.6C3 PO
[2024-09-25 20:41] VITALS: BP 153/100; PULSE 101; O2SAT 92
[2024-09-25 21:39] LABS: MEAN PLATELET VOLUME 8.1 FL (7.4-10.4); RED CELL DISTRIBUTION WIDTH 15.0 % (11.5-14.5)
[2024-09-25 21:52] LABS: CREATININE 1.45 MG/DL (0.60-1.10); TOTAL CARBON DIOXIDE 23.0 MMOL/L (24-32); eGFR 50 ML/MIN
[2024-09-25 22:05] VITALS: RESP 14
[2024-09-25] MEDS: HYDROcodone/acetaminophen 5mg/325mg tablet PO ONE (22:05)
--- NOTE | 2024-09-25 22:21 | Physician Documentation ---
History of Present Illness ~ Chief Complaint: Foot pain Stated Complaint: LIMB PAIN Time Seen by MD: 20:45 Primary Medical Doctor: Pending Sale To [facility] HPI 4-year-old male reports to the emergency department for evaluation of left-sided great toe pain primarily. Patient reports he was previously diagnosed with gout and has had multiple episodes of gout flares with tophi to the elbows and knees bilaterally and often times in his left great toe. Patient reports that he does not take allopurinol for treatment of gout. Patient reports that he has not taken any pain medication for the gout as he does not have any. Patient denies any other significant past medical history other than cardiac at this time Tetanus witin 5 years: No Medication Reconciliation Allergies: Coded Allergies: Haloperidol Lactate (Verified Allergy, Unknown, 09/25/24) Penicillins (Verified Allergy, Unknown, 09/25/24) haloperidol (Verified Allergy, Unknown, 09/25/24) Uncoded Allergies: FISH (Allergy, Unknown, 08/30/16) ASA (Adverse Reaction, Mild, 07/11/24) "hurts my stomach" Scheduled Aspirin (Children's Aspirin), 81 MG PO DAILY@0830 Clopidogrel Bisulfate (Clopidogrel), 75 MG PO DAILY Colchicine (Colchicine), 1 CAP PO Q12H Prednisone* (Prednisone*), 1 TAB PO Q12H Scheduled PRN Hydrocodone Bit/Acetaminophen 5/325 MG ([employer] 5/325 MG), 1-2 TAB PO BID PRN for pain Past Medical History Past Medical History: Headache, High Cholesterol, Hypertension, Asthma, COPD, Hernia, Chronic Back Pain, Anxiety, Psychosis, Schizophrenia Past Surgical History: abdominal surgery, cholecystectomy, other Other Past Surgical History: hernia repair Alcohol Use: None Drug Use: none Lives In: Homeless Occupation: unemployed, disabled Review of Systems All Other Systems at this time: Reviewed and Negative ROS As stated above in the HPI, otherwise all systems are reviewed and negative. Physical Exam Vital Signs: Temperature: 97.6, Source: Temporal, Heart Rate: 101, Respiratory Rate: 14, BP: 153/100, Pulse Oximetry: 92 Physical Exam VITALS: Reviewed and as above. GENERAL: Alert, no apparent distress. HEENT: Normocephalic, atraumatic, PERRL, EOMI, dry mucosa, no erythema RESPIRATORY: Lungs clear, normal breath sounds, no respiratory distress. CHEST: No accessory muscle use, no retractions CV: Regular rate, rhythm, no edema, no murmur, No: JVD GI: Soft, non-tender, bowels sounds present, no rebound, guarding, or rigidity BACK: No CVA tenderness, or swelling MUSCULOSKELETAL tophi noted in the patient's right elbow, significant swelling of the left great toe. SKIN: Warm and dry, no rash NEURO: Oriented x4, No motor or sensory deficit PSYCH: Normal mood and affect, no agitation Progress Results/Orders Results/Orders Completed Orders - SHERI BRYAN DONOR SERVICES COORDINATOR Cbc/Diff (09/25/24 21:23) CMP (09/25/24 21:23) Uric Acid (09/25/24 21:23) C-Reactive Protein (09/25/24 21:23) Hydrocodone/Apap 5/325mg Tab ([employer] 5/32 (09/25/24 21:40) Colchicine Tablet (Colchicine Tablet) (09/25/24 22:15) Prednisone Tablet (Prednisone Tablet) (09/25/24 22:35) Medications Received in ER Medications (Trade) Dose Ordered Sig/Jewel Route PRN Reason Start Time Stop Time Status Last Admin Dose Admin ([employer] 5/325mg tablet) 1 tab ONCE ONCE PO 09/25/24 21:40 09/25/24 21:41 DC 09/25/24 22:05 1 TAB Vital Signs 09/25/24 09/25/24 20:41 22:05 Temp 97.6 Pulse 101 Resp 15 14 B/P (MAP) 153/100 Pulse Ox 92 Laboratory Tests Test 09/25/24 21:33 White Blood Count 9.9 Red Blood Count 5.21 Hemoglobin 14.5 Hematocrit 43.2 Mean Corpuscular Volume 83.0 Mean Corpuscular Hemoglobin 27.8 Mean Corpuscular Hemoglobin Concent 33.5 Red Cell Distribution Width 15.0 H Platelet Count 308 Mean Platelet Volume 8.1 Neutrophils (%) (Auto) 72.9 Lymphocytes (%) (Auto) 17.7 L Monocytes (%) (Auto) 7.3 Eosinophils (%) (Auto) 0.8 Basophils (%) (Auto) 1.3 H Neutrophils # (Auto) 7.2 Lymphocytes # (Auto) 1.7 Monocytes # (Auto) 0.7 Eosinophils # (Auto) 0.1 Basophils # (Auto) 0.1 CBC Comment Sodium Level 136 Potassium Level 4.0 Chloride Level 104 Carbon Dioxide Level 23.0 L Anion Gap 9 Blood Urea Nitrogen 18 Creatinine 1.45 H Estimated GFR/1.73 m2 50 BUN/Creatinine Ratio 12.4 Glucose Level 113 H Uric Acid 9.6 H Calcium Level 8.9 Total Bilirubin 0.7 Aspartate Amino Transf (AST/SGOT) 14 Alanine Aminotransferase (ALT/SGPT) 20 Alkaline Phosphatase 95 C-Reactive Protein 2.48 H Total Protein 8.7 H Albumin 3.6 Globulin 5.1 H Albumin/Globulin Ratio 0.7 L Chemistry Comments Medical Decision Making Findings Patient presents with joint pain in left great toe. Given history, exam and workup patient experiencing a gout flare. I have low suspicion for fracture, dislocation, significant ligamentous injury, septic arthritis, new autoimmune arthropathy, or gonococcal arthropathy. Departure Disposition: HOME / SELF CARE / HOMELESS Impression: Primary Impression: Gout flare Additional Impression: Foot pain Condition: Stable Additional Instructions: Today we saw you for presentation of a gout flare in her left lower extremity. Uric acid levels were elevated in addition to physical exam being consistent with gout flare. We have provided you with a dose of colchicine while here in the emergency department, and we will be prescribing you a course of steroids that you will need to take until they are done. Please follow up with your primary care provider to discuss starting a medication called allopurinol. If you have any worsening of symptoms or any additional concerning symptoms please return to the emergency department. Referrals: NO PRIMARY CARE PROVIDER (PCP) Prescriptions Hydrocodone Bit/Acetaminophen 5/325 MG ([employer] 5/325 MG) 5 Mg/325 Mg Tablet 1-2 TAB PO BID PRN for pain for 7 Days, #20 TAB Prov: SHERI BRYAN 09/25/24 Prednisone* (Prednisone*) 20 Mg Tablet 1 TAB PO Q12H for 5 Days, #10 TAB Prov: SHERI BRYAN 09/25/24 Education Educated: Patient Educated regarding: diagnosis, treatment, need for follow up Signature Scribe Signature: . Attestation: Scribed for Sheri Bryan by SHELLI Love . 09/25/24 22:40 SHERI BRYAN Sep 25, 2024 22:20
[2024-09-25] MEDS ORDERED: PRED20TA PO (22:34)
[2024-09-25] MEDS ORDERED: HYDR-3965 PO (22:39)
[2024-09-25 23:28] VITALS: TEMP 97.6
== END 2024-09-25 23:49 | disposition home or self-care (01) ==
LOC: ER 20:35
DX: M10.072 Idiopathic gout, left ankle and foot (principal); I10 Essential (primary) hypertension; F20.9 Schizophrenia, unspecified; E78.00 Pure hypercholesterolemia, unspecified; J44.9 Chronic obstructive pulmonary disease, unspecified; F41.9 Anxiety disorder, unspecified; Z90.49 Acquired absence of other specified parts of digestive tract; Z98.890 Other specified postprocedural states; Z88.0 Allergy status to penicillin; Z88.8 Allergy status to other drugs, medicaments and biological substances; Z79.899 Other long term (current) drug therapy; Z79.82 Long term (current) use of aspirin; Z56.0 Unemployment, unspecified; Z59.00 Homelessness unspecified
CPT/HCPCS: 36415; 80053; 84550; 85025; 86140; 99284; J7512

== ENCOUNTER 2024-11-05 16:14 | Inpatient (IN) | payer MEDICAID ==
[~2024-11-05] VITALS: Ht 165.1 cm; Wt 110.0 kg
[2024-11-05 16:36] LABS: MEAN PLATELET VOLUME 8.3 FL (7.4-10.4); RED CELL DISTRIBUTION WIDTH 14.9 % (11.5-14.5)
[2024-11-05 17:03] LABS: CREATININE 1.48 MG/DL (0.60-1.10); PRO BRAIN NATRIURETIC PEPTIDE 165 PG/ML (0-125); TOTAL CARBON DIOXIDE 21.7 MMOL/L (24-32); eCRCL 46 ML/MIN; eGFR 48 ML/MIN
--- NOTE | 2024-11-05 17:05 | Physician Documentation ---
History of Present Illness ~ Chief Complaint: Chest Pain Stated Complaint: CP Time Seen by MD: 16:29 Primary Medical Doctor: [facility] Mode of Arrival: EMS HPI 59 yo M presenting with chest pain. He tells me that he was admitted to the hospital earlier this year, was supposed to have a cardiac catheterization but refused because he was afraid of the procedure. Since he left the hospital, he has had constant chest pain. He reports it is central chest pain without radiation. He does have shortness of breath. It is painful when he takes a deep breath. He did develop a cough since yesterday with some green sputum. He denies any fevers. No abdominal pain, vomiting or diarrhea. No leg pain or swelling. Medication Reconciliation Allergies: Coded Allergies: Haloperidol Lactate (Verified Allergy, Unknown, 09/25/24) Penicillins (Verified Allergy, Unknown, 09/25/24) haloperidol (Verified Allergy, Unknown, 09/25/24) Uncoded Allergies: FISH (Allergy, Unknown, 08/30/16) ASA (Adverse Reaction, Mild, 07/11/24) "hurts my stomach" Scheduled Aspirin (Children's Aspirin), 81 MG PO DAILY@0830 Clopidogrel Bisulfate (Clopidogrel), 75 MG PO DAILY Colchicine (Colchicine), 1 CAP PO Q12H Past Medical History Past Medical History: Headache, High Cholesterol, Hypertension, Asthma, COPD, Hernia, Chronic Back Pain, Anxiety, Psychosis, Schizophrenia Past Surgical History: abdominal surgery, cholecystectomy, other Other Past Surgical History: hernia repair Alcohol Use: None Drug Use: none Lives In: Homeless Occupation: unemployed, disabled Review of Systems Constitutional: Denies: fever Respiratory: Reports: cough, shortness of breath Cardiovascular: Reports: chest pain Physical Exam Vital Signs: Temperature: 98.6, Source: Oral, Heart Rate: 76, Respiratory Rate: 13, BP: 116/68, Pulse Oximetry: 94, Weight: 110.000 Oxygen Flow Rate: 0 Physical Exam General: This is a middle-aged man, sitting in bed, not in distress HEENT: Atraumatic, oropharynx is moist Heart: Regular rate and rhythm, audible murmur, normal-appearing peripheral perfusion Lungs: Clear breath sounds bilateral, normal work of breathing, normal oxygen saturation on room air Abdomen: Soft, nondistended, nontender all quadrants Extremities: Warm and well-perfused, trace edema in bilateral ankles, no posterior calf tenderness Neuro: Alert and oriented Psychiatric: Calm and cooperative with exam Progress Results/Orders Results/Orders Orders - CHRIS HOFFMAN MD Chest,Single View (11/05/24 16:26) Monitor (11/05/24 16:20) Saline Lock (11/05/24 16:20) Oxygen (11/05/24 16:20) Electrocardiogram (11/05/24 16:20) Hs Troponin I W Calculations (11/05/24 18:20) Hs Troponin I W Calculations (11/05/24 19:20) Magnesium Sulf-Water 2g/50ml (Magnesium (11/05/24 18:15) Completed Orders - CHRIS HOFFMAN MD Chest,Single View (11/05/24 16:26) Cbc/Diff (11/05/24 16:20) BMP (11/05/24 16:20) PBNP (11/05/24 16:20) Hs Troponin I W Calculations (11/05/24 16:20) MG (11/05/24 16:27) Vital Signs 11/05/24 11/05/24 11/05/24 16:15 16:38 17:48 Temp 98.6 Pulse 76 67 Resp 15 13 15 B/P (MAP) 116/68 106/67 (80) Pulse Ox 94 94 O2 Flow Rate 0 0 Laboratory Tests Test 11/05/24 16:27 White Blood Count 6.3 Red Blood Count 4.74 Hemoglobin 13.3 L Hematocrit 39.7 L Mean Corpuscular Volume 83.7 Mean Corpuscular Hemoglobin 28.1 Mean Corpuscular Hemoglobin Concent 33.5 Red Cell Distribution Width 14.9 H Platelet Count 226 Mean Platelet Volume 8.3 Neutrophils (%) (Auto) 65.2 Lymphocytes (%) (Auto) 24.9 Monocytes (%) (Auto) 7.2 Eosinophils (%) (Auto) 1.5 Basophils (%) (Auto) 1.2 H Neutrophils # (Auto) 4.1 Lymphocytes # (Auto) 1.6 Monocytes # (Auto) 0.5 Eosinophils # (Auto) 0.1 Basophils # (Auto) 0.1 CBC Comment Sodium Level 139 Potassium Level 4.0 Chloride Level 110 H Carbon Dioxide Level 21.7 L Anion Gap 7 L Blood Urea Nitrogen 17 Creatinine 1.48 H Estimated GFR/1.73 m2 48 BUN/Creatinine Ratio 11.5 Glucose Level 105 H Calcium Level 8.2 L Magnesium Level 2.0 Troponin I High Sensitivity 6 Pro-B-Type Natriuretic Peptide 165 H Albumin 3.4 Chemistry Comments EKG/XRAY/CT/US/VASC/MRI EKG : Additional Comment I personally interpreted the EKG and this shows: Long QT, QTC is 546. Sinus rhythm with a rate 77. No ischemic changes Chest X-Ray : Additional Comments I personally interpreted the x-ray, and it shows: enlarged heart border, pulmonary vascular congestion, no large pneumonia Consults/PCP Consults/PCP : Additional Comment Consult: I spoke to the internal medicine service, for admission in the hospital Medical Decision Making Additional info obtained from: old records Findings The patient was admitted earlier this year with a cardiac arrest, possibly due to prolonged QTC. He refused cardiac catheterization at the time Differential Dx:Considerations: Include: angina, aortic dissection, chest wall pain, CHF, costochondritis, gastritis, pneumonia Additional Information The patient presents with chest pain and shortness of breath. Per chart review he was here in the hospital earlier this year with cardiac arrest. His EKG does show prolonged QTC. This is concerning for increased risk for cardiac arrest or torsades. His electrolytes today are normal. He was given IV magnesium. Given his shortness of breath and chest pain as well as prolonged QTC and history of cardiac arrest likely related to this, discharged does not seem safe. He also has not had any of his cardiac medications recently, ran out of them. He will be admitted for further cardiac evaluation and treatment Departure Impression: Primary Impression: Chest pain Additional Impression: Prolonged QT interval Referrals: NO PRIMARY CARE PROVIDER (PCP) Signature Scribe Signature: [email or web address] Attestation: CHRIS Preciado MD Nov 05, 2024 17:05
[2024-11-05] MEDS: magnesium sulf-water 2g/50mL 50 ML IV ONE (18:44)
[2024-11-05] MEDS ORDERED: ondansetron 4mg rapidly disintigrating tab PO PRN (20:15)
[2024-11-05] MEDS ORDERED: magnesium Cl slow-release 64mg tablet PO PRN (20:15)
[2024-11-05] MEDS ORDERED: magnesium hydroxide 30ml (MOM) UD suspension PO PRN (20:15)
[2024-11-05] MEDS ORDERED: potassium Cl 40MEQ/1/2NS 520ml 520 ML IV PRN (20:15)
[2024-11-05] MEDS ORDERED: mag hydrox/Alum hydrox/simeth 30ml oral suspension PO PRN (20:15)
[2024-11-05] MEDS ORDERED: potassium Cl 20 mEq SR tablet PO PRN ×2 (20:15)
[2024-11-05] MEDS ORDERED: magnesium sulf-water 4G/100mL 100 ML IV PRN (20:15)
--- NOTE | 2024-11-05 20:58 | HISTORY AND PHYSICAL-Residence ---
History & Physical Providers to CC Resident Creating Document: KEI NASH, RES ~ History of Present Illness Reason for Admit\\Complaint: Chest pain History of Present Illness 59 years old man with past medical history of hyperlipidemia,Hyperurecimia and asthma to ED with four days of crushing left-sided chest pain 10/10 intensity (mentioned by patient) , which radiates to the back and both shoulder, which is worse when lying flat and with a deep breaths, relieved by sitting up and it is accompanied by sweating palpitation and shortness of breath sometimes and he also reports an on and off cough producing green sputum, previously with the fever and chills but,no fever now .he took two nitroglycerin tablets today with no relief and in ED his EKG showed a prolonged QT interval for which he received IV Magnesium and Patient was previously admitted for Cardiaic arrest in the july with V-tach and lost pulses He received CPR and shock after which he achieved ROSC. Allergies: Coded Allergies: Haloperidol Lactate (Verified Allergy, Unknown, 09/25/24) Penicillins (Verified Allergy, Unknown, 09/25/24) haloperidol (Verified Allergy, Unknown, 09/25/24) Uncoded Allergies: FISH (Allergy, Unknown, 08/30/16) ASA (Adverse Reaction, Mild, 07/11/24) "hurts my stomach" Home Medications Home Medications Active Colchicine 0.6 Mg Capsule 1 Cap PO Q12H 30 Days Children's Aspirin (Aspirin) 81 Mg Tab.chew 81 Mg PO DAILY@0830 Clopidogrel (Clopidogrel Bisulfate) 75 Mg Tablet 75 Mg PO DAILY Do not stop medication unless instructed by prescriber. 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 no change in appetite/weight HEENT: No blurring of the vision, No sore throat, epistaxis, tinnitus Cardiovascular: chest pain/discomfort, palpitations, no syncope. No pedal edema Respiratory: Sob, cough with green sputum, no hemoptysis Gastrointestinal: Tender swelling noted on right lower abdomen, nausea, vomiting. No diarrhea, constipation, melena. Genitourinary: No frquency, urgency, incontinence, nocturia. No dysuria, hematuria Musculoskeletal: No arthralgia, myalgia Endocrine: No fatigue, polydipsia, polyuria. No heat or cold intolerance Neurologic: No headache, vertigo. No weakness, numbness or tingling of extremities Psychiatric: No hallucinations/delusions, no anhedonia, no suicidal ideation Hematologic: No bleeding or bruises Constitutional: Denies: fever Respiratory: Reports: cough, shortness of breath Cardiovascular: Reports: chest pain Exam Vitals: Vital Signs Date Time Temp Pulse Resp B/P (MAP) Pulse Ox O2 Delivery O2 Flow Rate FiO2 11/05/24 17:48 67 15 106/67 (80) 94 0 11/05/24 16:15 98.6 General: Patient is Alert, oriented, coperative Head: Normocephalic with an atraumatic Eyes: Pupils- equal , reacting to light, conjunctiva- anicteric Nose and throat: No polyps, septum- normal, no mucosal ulcers Neck: Supple, no lymphadenopathy, no carotid bruit Respiratory: No use of accessory muscles of respiration, Bilateral normal vesicular breath sounds heard. No wheeze, rhochi or creps Cardiac: S1-S2 heard, rythm regular, no gallop/murmur Abdomen: a palable swelling non distended, no tenderness, no organomegaly, bowel sounds - heard Extremities: no clubbing, no pedal edema, no deformities, peripheral pulses - 2+ Skin: warm and dry, no rash, no purpura Diagnostic Data Last Recorded Lab Results: 11/05/24 1627 11/05/24 1627 Advance Care Planning Advanced Care plannin - 30 Minutes Additional Plan 59 year old with past medical history of Hyperlipidemia,Asthma and Hyperurecimia is currently evaluated for chest pain Chest pain possible due to Community acquire pneumonia covering gram positive and gram negative rods vs UA Patient complains of pleuritic chest pain with cough associated with green sputum WBC: 6.3 P: Started Roceph 1g iv daily Follow up with chest Xray, ESR,CRP Procalciton F/P with Echo NPO tonight Possible Lexiscan tomorrow Hyperlipidemia Patient is obese and his BMI is 40.42 LDL: 149, TG 208, Total Cholesterol Continue Home med atrovastatin 80mg PO DAILY Prolong QT interval Patient was previously admitted for Cardiaic arrest in the july with V-tach and lost pulses He received CPR and shock after which he achieved ROSC. Initial EKG in ED showed Prolong QT interval and received 1 dose of IV magnesium P: patient will be monitored in PCU with telemetry Code Status: Full DVT Prophylaxis: Heparin Analgesia/Sedation: Lines/Tubes: GI Prophylaxis: Nutrition: PT: Prognosis: Disposition: Attending Physician Attestation 59-year-old man with a history of intrinsic asthma, dyslipidemia and hyperuricemia now admitted with a cough productive of green sputum and left precordial chest pain that is worse with deep inspiration and lying flat. Chest radiograph is without inocente evidence of pneumonia. The treatment plan includes: Empiric antimicrobial therapy with ceftriaxone and azithromycin whil awaiting the results of the sputum culture and other micro studies. Bronchodilator therapy with albuterol/ipratropium and ICS with budesonide for treatment of the patient's intrinsic asthma. CTA of the chest to exclude aortic dissection and PE. Transthoracic echo to exclude a pericardial effusion and to assess LVEF. Time spent 50 minutes. Date of Service: Nov 05, 2024 Billing Provider: ENRIQUE MCADAMS MD, SATISH, RES Nov 05, 2024 20:58 ENRIQUE MCADAMS MD Nov 06, 2024 02:32
[2024-11-05] MEDS ORDERED: IPRATROPIUM Bromide 0.06% Nas 1 SPRAY BOTTLE NS PRN (21:40)
[2024-11-05] MEDS: ipratropium/albuterol 3ml nebule NEB SCH (21:45)
[2024-11-05 22:13] VITALS: PULSE 82; RESP 18; O2SAT 98
[2024-11-05] MEDS: normal saline 1000ml 1,000 ML IV SCH (22:17)
[2024-11-05] MEDS: CefTRIAXone/D5W-Rocephin 1gm 50 ML IV SCH (22:17)
[2024-11-05] MEDS ORDERED: ATOR-2 PO (22:21)
[2024-11-05 23:00] VITALS: BP 134/79; PULSE 81; TEMP 97.4; O2SAT 97
[2024-11-05 23:29] VITALS: PULSE 65; RESP 18; O2SAT 97
[2024-11-05 23:33] VITALS: PULSE 78; RESP 18
[2024-11-06] VITALS (23 sets, daily range): BP systolic 95–169; BP diastolic 58–91; PULSE 56–94; RESP 13–18; TEMP 97.1–98.4; O2SAT 93–99
[2024-11-06] LABS: CHOL/HDL RATIO 7.0 (0.00-4.99); LDL CHOLESTEROL 149 MG/DL (50-100)
[2024-11-06 00:15] LABS: UA COLLECTION TYPE NON-SPECIFIED
[2024-11-06 00:16] LABS: LEUKOCYTE ESTERASE ,URINE NEGATIVE (Neg); NITRITES, URINE NEGATIVE (Neg); OCCULT BLOOD,URINE NEGATIVE (Neg)
--- NOTE | 2024-11-06 05:40 | ELECTROCARDIOGRAPH REPORT ---
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
[2024-11-06 07:35] LABS: MEAN PLATELET VOLUME 8.4 FL (7.4-10.4); RED CELL DISTRIBUTION WIDTH 15.1 % (11.5-14.5)
[2024-11-06] MEDS: heparin, porcine 5000 units/ml vial SQ SCH (08:00)
[2024-11-06 08:14] LABS: CREATININE 1.50 MG/DL (0.60-1.10); TOTAL CARBON DIOXIDE 21.2 MMOL/L (24-32); eCRCL 45 ML/MIN; eGFR 48 ML/MIN
[2024-11-06] MEDS: DOXYCYCLINE 100MG CAPSULE PO SCH (08:14)
[2024-11-06] MEDS: pantoprazole 40mg Tablet.DR PO SCH (08:14)
--- NOTE | 2024-11-06 08:45 | RADIOLOGY REPORT ---
CHEST RADIOGRAPH Indication: CP Technique: Single frontal view of the chest was obtained Comparison: DI CHEST,SINGLE VIEW on DOS: 07/16/24, DI CHEST,SINGLE VIEW on DOS: 06/19/24, DI CHEST,SINGL E VIEW on DOS: 06/30/23, CHEST,SINGLE VIEW on DOS: 03/09/21 FINDINGS: Lines and Tubes: None Lungs: No focal consolidation. Pleura: No effusion. No pneumothorax. Cardiomediastinal contours: Unremarkable Bones: No acute osseous abnormality. IMPRESSION: No acute cardiopulmonary disease.
--- NOTE | 2024-11-06 10:30 | RADIOLOGY REPORT ---
Examination: CT CTA AORTA DISECTION W/ IV CONTRAST CLINICAL HISTORY: severe chest pain radiating to the back Comparison: None Technique: Using helical technique, CT data from the chest through the pelvis was obtained during rap id IV contrast infusion. The examination was timed to the arterial system to generate a CT angiograph ic study. 3D images were generated at an independent work station. Dose reduction techniques included automated exposure control. Radiation Dose Information: CT Dose: CTDI volume is 25.5 mGy. Dose-length product is 1980 mGy*cm Findings: Vascular: Thoracic aorta: Normal caliber, patent Aortic arch: Normal caliber, patent mild atherosclerotic calcifications of the arch. Descending aorta: Normal caliber, patent Supraaortic branches: Conventional branching pattern. Normal caliber, patent Coronary arteries: Positive coronary artery calcifications. Abdominal aorta: Normal caliber, patent. Vascular atherosclerotic calcifications are present. Celiac artery: Patent SMA: Patent Renal arteries: Patent NONI: Patent Portal/mesenteric veins: normal Abdominal systemic veins: normal Chest: Lungs/Pleura: Dependent atelectasis. No suspicious pulmonary nodules. No pleural effusion or focal pl eural lesion. Axilla/Soft Tissue: No supraclavicular or axillary adenopathy. Regional soft tissues are within jarek l limits. Mediastinum:Visualized thyroid is normal. No pathologic mediastinal or hilar adenopathy. Esophagus i s normal. Trachea and proximal bronchi are normal. Heart: The heart is normal in size. No pericardial effusion. Abdomen/Pelvis: Liver: The liver is normal in size and morphology,. No focal hepatic lesion. The portal veins are pat ent. Biliary System: Gallbladder: Absent Bile Ducts: No intrahepatic or extrahepatic biliary ductal dilation. Spleen: No splenomegaly or focal splenic lesion. Pancreas: No masses or ductal dilation. Adrenals: Normal. Urinary System: Kidneys and Ureters: Bilateral renal cysts. Kidneys appear mildly atrophic. Bladder: Normal. GI System: Stomach, small bowel, and large bowel are normal in caliber without wall thickening or dil ation Appendix is normal. Lymph nodes: No lymphadenopathy. Peritoneal cavity and surface: No free fluid. No pneumoperitoneum. Small to moderate right paraumbil ical fat containing hernia. Soft Tissues: Normal. Reproductive Organs: Normal. Bones: No acute fracture or aggressive osseous lesion. Impression: Vascular: 1. No evidence of acute vascular disease. 2. Mdci-la-[id number] vascular atherosclerotic disease. Chest: 1. No acute intrathoracic process. Abdomen/Pelvis: 1. No acute abdominal pelvic process.
[2024-11-06] MEDS ORDERED: metoprolol tartrate 1mg/ml inj IV PRN (12:05)
[2024-11-06] MEDS ORDERED: aminophylline 250mg/10ml inj. IV PRN (12:05)
[2024-11-06 14:26] LABS: URINE AMPHETAMINE SCREEN NEGATIVE (Neg); URINE BARBITUATE SCREEN NEGATIVE (Neg); URINE BENZODIAZEPINES SCREEN NEGATIVE (Neg); URINE CANNABINOID SCREEN NEGATIVE (Neg); URINE COCAINE SCREEN NEGATIVE (Neg); URINE METHADONE SCREEN NEGATIVE (Neg); URINE OPIATE SCREEN NEGATIVE (Neg); URINE PHENCYCLIDINE SCREEN NEGATIVE (Neg)
--- NOTE | 2024-11-06 14:39 | RADIOLOGY REPORT ---
ULTRASOUND ABDOMEN, LIMITED: REASON FOR EXAM: abd tenderness at incisional hernia site. History of ventral hernia repair years ag o. COMPARISON: CT chest/abdomen/ pelvis 11/06/2024 TECHNIQUE: Real-time sector scans in the transverse and longitudinal planes were obtained through th e area of concern in the abdomen. FINDINGS: In the area of concern in the ventral abdominal wall, at the site of incisional hernia, th ere is an approximately 5.9 x 5.7 x 5.5 cm round mass of mildly edematous fat. The round collection o f fat does not move with valsalva or change in position from supine to upright. The location is very tender to the touch. Hernia neck is not visualized. IMPRESSION: There is a round this of edematous fat within the subcutaneous tissue at the site of prior hernia rep air. The fat is mildly edematous and very tender. This is most consistent with herniated and incarcer ated peritoneal fat. The hernia neck is better seen on the CT performed on the same date.
[2024-11-06] MEDS: regadenoson 0.4mg/5ml syringe IV PRN (15:33)
--- NOTE | 2024-11-06 16:58 | RADIOLOGY REPORT ---
Procedure: NM NM RIA SCAN Exam Date: 11/06/2024 02:44 PM Reason for study/Clinical History: chest pain Comparison Study: None Myocardial Perfusion Study with SPECT Technique: The patient received an intravenous injection of 8.2 mCi of technetium-99m sestamibi whil e at rest. After a short delay, SPECT tomographic images of the heart were obtained. The patient th en went to the stress lab where they received an intravenous infusion of 0.[address] andard protocol. 33.6 mCi of technetium-99m sestamibi was injected intravenously immediately after the start of the lexiscan infusion. Gated SPECT tomographic images of the heart were acquired and pr ocessed. Findings: Reversible defect of the anterior, lateral akins. End diastolic volume: 52 mL End systolic volume: 12 mL The left ventricular ejection fraction is 78 %. (normal greater than 50%) Impression: Reversible defects of the anterior /lateral akins The left ventricular ejection fraction is 78 %.
--- NOTE | 2024-11-06 17:48 | PROGRESS NOTE- Residence ---
Progress Note - Resident Providers to CC Resident Creating Document: JUSTUS LILLY RES ~ Antibiotic Timeout Antibiotic Ordered?: Yes Subjective Patient was seen and examined at the bedside. Continues to have chest pain. CTA was done which is normal. Lexiscan showed no reversible defects in the anterior and lateral wall. Consulted Cardiology, Dr. Hernandez, who reviewed the Lexiscan reported it was normal. Reminded outpatient follow up. Objective Vital Signs Date Time Temp Pulse Resp B/P (MAP) Pulse Ox O2 Delivery O2 Flow Rate FiO2 11/06/24 16:01 89 16 123/70 97 Room Air 11/06/24 12:21 98.4 11/06/24 10:41 0 21 Result Diagram: 11/06/24 0703 11/06/24 07 Patient is Alert, oriented, coperative Head: Normocephalic with an atraumatic Eyes: Pupils- equal , reacting to light, conjunctiva- anicteric Nose and throat: No polyps, septum- normal, no mucosal ulcers Neck: Supple, no lymphadenopathy, no carotid bruit Respiratory: No use of accessory muscles of respiration, Bilateral normal vesicular breath sounds heard. No wheeze, rhochi or creps Cardiac: S1-S2 heard, rythm regular, no gallop/murmur Abdomen: a palpable tender swelling, no organomegaly, bowel sounds - heard Extremities: no clubbing, no pedal edema, no deformities, peripheral pulses - 2+ Skin: warm and dry, no rash, no purpura Plan Plan Additional Plan 59 year old with past medical history of Hyperlipidemia,Asthma and Hyperurecimia is admitted for evaluation of chest pain. CT negative. Lexiscan showed no reversible defects in the anterior and lateral wall. Consulted Cardiology, Dr. Hernandez, who reviewed the Lexiscan reported it was normal. Reminded outpatient follow up. Plan Angina equivalent chest pain Heart score 5 Troponins negative EKG showed prolonged QT interval CTA showed no acute vascular disease Echo showed ejection fraction 65-70 % Lexiscan showed reversible defect in anterior and lateral wall, Consulted qualitative researcher, Dr. Hernandez reviewed Lexiscan, reported it was normal Started on Plavix 70 mg, continue atorvastatin 80 mg Nitroglycerin p.r.n. Prolong QT interval Patient was previously admitted for Cardiac arrest in july with V-tach, s/p ROSC, during that admission he refused angiography. Initial EKG in ED showed Prolong QT interval and received 1 dose of IV magnesium Avoid medications that increase the QT interval. Potassium and magnesium in normal range. Urine tox negative Incarcerated preperitoneal fat Patient has a tender abdominal mass the site of incisional hernia. Abdominal ultrasound showed incarcerated peritoneal fat. Consulted Dr. Lozano, awaiting recommendations Possible community acquired pneumonia covering Gram-positive and Gram-negative organisms. Patient has a chronic history of cough with greenish sputum Started on Rocephin and doxy Hyperlipidemia Patient is obese and his BMI is 40.42 LDL: 149, TG 208, Total Cholesterol Continue Home med atrovastatin 80mg PO DAILY CKD stage III Creatinine is at baseline Code Status: Full DVT Prophylaxis: Heparin Lines/Tubes: Peripheral IV line Nutrition: Heart healthy diet Justus Lilly M.D PGY2 Date of Service: Nov 06, 2024 Billing Provider: RAJIV HAMMOND MD, PRAVAHIKA, RES Nov 06, 2024 17:48
--- NOTE | 2024-11-06 19:25 | CONSULTATION REPORT ---
History of Present Illness Providers to CC CC: JULIO C HERNANDEZ MD ~ Reason for Admit\\Admit Dx: Cardiology consultation Refering MD: Hospitalist service History of Present Illness Patient presented secondary to being too hot in the sun. When asked about shortness for breath or chest pain he states he does have these and believes it is secondary to being in the sun. History of as cardiac arrest secondary to prolonged QT syndrome. Questionable history of taking psychiatric medications. He has further history of asthma, hyperlipidemia and uricemia. Underwent a stress test that was read as reversible defects in both the anterior and lateral akins. TTE demonstrates preserved LVEF and no wall motion abnormalities. EKG demonstrates sinus rhythm with prolonged QT. QTC is 546 milliseconds. Low voltage. Allergies: Coded Allergies: Haloperidol Lactate (Verified Allergy, Unknown, 09/25/24) Penicillins (Verified Allergy, Unknown, 09/25/24) haloperidol (Verified Allergy, Unknown, 09/25/24) Uncoded Allergies: FISH (Allergy, Unknown, 08/30/16) ASA (Adverse Reaction, Mild, 07/11/24) "hurts my stomach" Home Medications Home Medications Active Reported Atorvastatin Calcium 80 Mg Tablet 1 Tab PO DAILY Past Medical History Medical History Comment Cardiac arrest secondary to ventricular tachycardia Prolonged QT syndrome Hyperlipidemia Hyperuricemia Asthma Past Surgical History Surgical History Comment Denies Past Family History Family History: FH: IA (myocardial infarction) FATHER, FH: cancer MOTHER, Past Social History Social History Comment Denies current tobacco use. No alcohol or recreational drugs. [place] [address] [address]. Physical Exam Last Vital Signs Recorded: RN Vital Signs have been reviewed: Yes, Temperature: 98.4, Source: Oral, Heart Rate: 89, Respiratory Rate: 16, BP: 123/70, Pulse Oximetry: 97, Weight: 110.000 Physical Exam General: Awake, alert, oriented. No apparent distress Neck: Supple. Normal range of motion. No JVD Respiratory: Lungs are clear to auscultation bilaterally. No respiratory distress. Chest: Normal shape and size. No accessory muscle use. Cardiovascular: Regular rate and rhythm. S1-S2. No murmur, gallop, rub. Gastrointestinal: Abdomen is soft. Nontender to palpation. Bowel sounds present. Extremities: No lower extremity edema, cyanosis or clubbing. Neurologic: Alert and oriented x4. Nonfocal Psychiatric: Normal mood and affect. Skin: Normal color. Warm and dry. Review of Systems ROS Patient currently denies any symptoms of chest pain or shortness for breath. He states he has intermittent shortness for breath that is related to being in the sun. States intermittent dizziness that he also relates to heat exposure. Denies shortness or breath, chest pain or pressure currently. Results EKG EKG Sinus rhythm with prolonged QTC at 546 milliseconds. Low voltage. Echocardiogram Echocardiogram Preliminary TTE with preserved EF and no wall motion abnormalities. Cardiac Stress Test Cardiac Stress Test Stress test read by radiologist as reversible defects in the anterior and lateral akins. Stress test read by Dr. Abran Hernandez independently as no reversible defects. Diagram Lab Result Diagram: 11/06/24 0703 11/06/24 0703 Assessment/Plan Additional Plan Patient presented with multiple medical complaints. The following is his problem list: Angina No current chest pain High sensitivity troponins negative --stress test read by Dr. Hernandez as no reversible ischemia --recommend risk factor modification Prolonged QT syndrome denies taking medications that prolong the QT. Education was provided to avoid QT prolonging medications such as certain antibiotics for antipsychotics. --recommend outpatient follow up and event monitor. He will need to follow up with his primary care provider and receive a referral to projects manager. Chronic kidney disease --management per hospitalist Hyperlipidemia ASCVD 15.3% --recommend statin Case discussed with Dr. Abran Hernandez who is in agreement with this plan. He had the opportunity to evaluate stress test. Supervising MD Supervising Physician: ANDREW Hung NP Nov 06, 2024 19:25
[2024-11-06] MEDS: budesonide 0.5mg/2ml UD nebule IH SCH (20:00)
[2024-11-07] VITALS (11 sets, daily range): BP systolic 106–137; BP diastolic 71–86; PULSE 65–68; RESP 14–20; TEMP 97.2–98.4; O2SAT 97–98
[2024-11-07] MEDS: magnesium sulf-water 2g/50mL 50 ML IV ONE (00:49)
[2024-11-07 07:05] LABS: MEAN PLATELET VOLUME 8.7 FL (7.4-10.4); RED CELL DISTRIBUTION WIDTH 14.9 % (11.5-14.5)
[2024-11-07 07:29] LABS: CREATININE 1.45 MG/DL (0.60-1.10); TOTAL CARBON DIOXIDE 23.8 MMOL/L (24-32); eCRCL 47 ML/MIN; eGFR 49 ML/MIN
--- NOTE | 2024-11-07 10:39 | CARDIOLOGY REPORT ---
APPROVED REPORT EXAM: Comprehensive 2D, Doppler, and color-flow Echocardiogram. Patient Location: [facility] Blood Pressure: 95/58 mmHg Heart Rate: 71 bpm Indications Chest Pain Shortness of Breath Hypertension Asthma COPD NO [employer]ER Previous ECHO: 07/17/24, [facility], EF: 65-70; m-mod RVE 2D Dimensions LA Diam3.4 cm IVSd 0.9 (0.7-1.1cm) LVDd 4.3 cm PWd 1.0 (0.7-1.1cm) IVSs 1.4 (0.8-1.2cm) LVDs 2.7 (2.5-4.0cm) PWs 1.3 (0.8-1.2cm) LVOT Diameter 2.30 (1.8-2.4cm) LVEF(%) 67.6 (>50%) Ao Asc Diam.3.25 cm IVC 16.26 mmFS (%) 37.3 % SV 56.4 ml CO 3.9 L/min M-Mode Dimensions Left Atrium(MM) 3.87 (2.5-4.0cm) Aortic Root 3.09 (2.2-3.7cm) Aortic Cusp Exc 1.91 (1.5-2.0cm) MV EPSS 0.3 (<0.5cm) Aortic Valve AoV Peak Brian. 133.8 cm/s AoV VTI 25.5 cm AO Peak GR. 7.2 mmHg AO Mean GR. 4 mmHg LVOT VTI 21.97 cm LVOT Peak Brian. 110.5 cm/s MARGARITA(VTI)/BSA 3.58 cm2/m2 MARGARITA (VTI) 3.58 cm2 Mitral Valve MV E Velocity 103.4 cm/s MV Peak Gr. 4 mmHg MV DECEL TIME 232 ms MV A Velocity 70.8 cm/s MV PHT 96 ms E/A Ratio 1.5 MVA (PHT) 2.29 cm2 MV BHia614.0 cm/s TDI Lateral E' P. V12.65 cm/s E/Lateral E' 8.2 Tricuspid Valve TR P. Velocity 195 cm/s RAP ESTIMATE 10 mmHg TR Peak Gr. 15 mmHg RVSP 25 mmHg LEFT VENTRICLE Normal LV size and wall thickness. Overall systolic function is normal. LVEF is 65-70%. RIGHT VENTRICLE Right ventricle is mild to moderately dilated with adequate function. ATRIA The left atrium size is normal. AORTIC VALVE Trileaflet AV appears mildly sclerotic without stenosis. No insufficiency. MITRAL VALVE Mitral valve leaflets are mildly thickened with mild annular calcification. No stenosis. Trace regurg itation. TRICUSPID VALVE The tricuspid valve is normal in structure with trace regurgitation. PULMONIC VALVE The pulmonary valve is normal in structure with physiologic insufficiency. GREAT VESSELS The aortic root is normal in size. The ascending aorta is normal in size. PERICARDIUM Normal pericardium. No effusion. Other Information Study Quality: Adequate Conclusion Normal LV size and wall thickness. Overall systolic function is normal. LVEF is 65-70%. Right ventricle is mild to moderately dilated with adequate function. The left atrium size is normal. Trileaflet AV appears mildly sclerotic without stenosis. No insufficiency. Mitral valve leaflets are mildly thickened with mild annular calcification. No stenosis. Trace regu rgitation. The tricuspid valve is normal in structure with trace regurgitation. Normal pericardium. No effusion.
--- NOTE | 2024-11-07 17:44 | PROGRESS NOTE ---
Progress Note ID Providers to CC ~ Progress Note Progress Note: pt seen/robo hernia repair sunday PARDEEP MATIAS MD Nov 07, 2024 17:44
--- NOTE | 2024-11-07 18:00 | PROGRESS NOTE ---
Progress Note Cardiology Providers to CC ~ Objective Result Diagram: 11/07/24 0628 11/07/2428 Problem\Assessment\Plan Additional Plan Was asked for surgery clearance for hernia repair. Patient has history of prolonged QT syndrome. He underwent a stress test with no reversible ischemia by surveillance sensor officer read. TTE with preserved EF and no wall motion abnormalities. From a cardiac standpoint he may undergo hernia repair. Avoid QTC prolonging medications. Discussed with Rosalinda Hernandez. Supervising Physician: ANDREW Hung NP Nov 07, 2024 18:00
--- NOTE | 2024-11-07 19:22 | PROGRESS NOTE- Residence ---
Progress Note - Resident Providers to CC Resident Creating Document: RAMIREZ PONCE RES CC: RAJIV HAMMOND MD ~ Antibiotic Timeout Antibiotic Ordered?: Yes Subjective Patient was seen and examined at the bedside, reports chest pain at night and shortness of breath at night. CTA was done which is normal. Lexiscan showed no reversible defects in the anterior and lateral wall. Consulted Cardiology, Dr. Hernandez, who reviewed the Lexiscan Recommended outpatient follow up. Objective Vital Signs Date Time Temp Pulse Resp B/P (MAP) Pulse Ox O2 Delivery O2 Flow Rate FiO2 11/07/24 15:00 97.6 65 15 131/86 (101) 98 Room Air 11/07/24 13:25 0 21 Result Diagram: 11/07/2462711/07/24627 Patient is Alert, oriented, coperative Head: Normocephalic with an atraumatic Eyes: Pupils- equal , reacting to light, conjunctiva- anicteric Nose and throat: No polyps, septum- normal, no mucosal ulcers Neck: Supple, no lymphadenopathy, no carotid bruit Respiratory: No use of accessory muscles of respiration, Bilateral normal vesicular breath sounds heard. No wheeze, rhochi or creps Cardiac: S1-S2 heard, rythm regular, no gallop/murmur Abdomen: a palpable tender swelling, no organomegaly, bowel sounds - heard Extremities: no clubbing, no pedal edema, no deformities, peripheral pulses - 2+ Skin: warm and dry Plan Plan Additional Plan 59 year old with past medical history of Hyperlipidemia,Asthma and Hyperurecimia is admitted for evaluation of chest pain. CT negative. Lexiscan showed no reversible defects in the anterior and lateral wall. Consulted Cardiology, Dr. Hernandez, who reviewed the Lexiscan r Reminded outpatient follow up. Plan Angina equivalent chest pain, RULED OUT ACS Heart score 5 Troponins negative EKG showed prolonged QT interval CTA showed no acute vascular disease Echo showed ejection fraction 65-70 % Lexiscan showed reversible defect in anterior and lateral wall Consulted inspector optical instrument, Dr. Hernandez reviewed Lexiscan, reported it was normal Started on Plavix 70 mg, continue atorvastatin 80 mg Nitroglycerin p.r.n. Prolong QT interval Patient was previously admitted for Cardiac arrest in july with V-tach, s/p ROSC, during that admission he refused angiography. Initial EKG in ED showed Prolong QT interval and received 1 dose of IV magnesium Avoid medications that increase the QT interval. Potassium and magnesium in normal range. Urine tox negative Incarcerated preperitoneal fat Patient has a tender abdominal mass the site of incisional hernia. Abdominal ultrasound showed incarcerated peritoneal fat. Consulted Dr. Lozano, he recommends for surgery once cardiac clearance is done,awaiting cardio clearance. Possible community acquired pneumonia covering Gram-positive and Gram-negative organisms. Patient has a chronic history of cough with greenish sputum Started on Rocephin and doxy Hyperlipidemia Patient is obese and his BMI is 40.42 LDL: 149, TG 208, Total Cholesterol Continue Home med atrovastatin 80mg PO DAILY CKD stage III Creatinine is at baseline Code Status: Full DVT Prophylaxis: Heparin Lines/Tubes: Peripheral IV line Nutrition: Heart healthy diet Ramirez Ponce PGY1 Internal Medicine Addendum: Chart reviewed by me agree with the assessment and plan as above. Patient is a 59-year-old male admitted for chest pain, rule out ACS. Lexiscan showed a reversible defect reviewed by inspector optical instrument Dr. Hernandez, reported it is normal continue with medical management Plavix patient is allergic to aspirin. Possible underlying pneumonia, empiric antibiotics on board. He was found to have incarcerated peritoneal fat, Dr. Pro consulted he will require surgery. Needs cardiac clearance prior to surgery. Chika Bui MD IM resident, PGY 3 Date of Service: Nov 07, 2024 Billing Provider: RAJIV HAMMOND MD, SANJAY, ION Nov 07, 2024 19:22 CHIKA BUI, RES Nov 07, 2024 19:31
[2024-11-07] MEDS: HYDROcodone/acetaminophen 10/325mg tab PO PRN (21:15)
[2024-11-08] VITALS (10 sets, daily range): BP systolic 101–137; BP diastolic 70–81; PULSE 60–68; RESP 13–18; TEMP 97.4–97.7; O2SAT 96–99
[2024-11-08 06:25] LABS: MEAN PLATELET VOLUME 8.6 FL (7.4-10.4); RED CELL DISTRIBUTION WIDTH 14.9 % (11.5-14.5)
[2024-11-08 06:41] LABS: CREATININE 1.49 MG/DL (0.60-1.10); TOTAL CARBON DIOXIDE 26.2 MMOL/L (24-32); eCRCL 45 ML/MIN; eGFR 48 ML/MIN
--- NOTE | 2024-11-08 10:27 | PROGRESS NOTE- Residence ---
Progress Note - Resident Providers to CC Resident Creating Document: RAMIREZ MONIQUE RES ~ Antibiotic Timeout Antibiotic Ordered?: Yes Subjective Patient was seen and examined at the bedside, reports chest pain at night and shortness of breath at night, was requesting for oxygen at night, CTA was done which is normal. Lexiscan showed no reversible defects in the anterior and lateral wall. Consulted Cardiology, Dr. Hernandez, who reviewed the Lexiscan. Rrecommended outpatient follow up. Objective Vital Signs Date Time Temp Pulse Resp B/P (MAP) Pulse Ox O2 Delivery O2 Flow Rate FiO2 11/08/24 07:29 61 18 96 Room Air* 0 21 11/08/24 02:00 97.7 114/81 (92) Result Diagram: 11/08/24 0608 11/08/24 06 Patient is Alert, oriented, coperative Head: Normocephalic with an atraumatic Eyes: Pupils- equal , reacting to light, conjunctiva- anicteric Nose and throat: No polyps, septum- normal, no mucosal ulcers Neck: Supple, no lymphadenopathy, no carotid bruit Respiratory: No use of accessory muscles of respiration, Bilateral normal vesicular breath sounds heard. No wheeze, rhochi or creps Cardiac: S1-S2 heard, rythm regular, no gallop/murmur Abdomen: a palpable tender swelling, no organomegaly, bowel sounds - heard Musculoskeletal: No joint swelling and inflammations Extremities: no clubbing, no pedal edema, no deformities, peripheral pulses - 2+ Skin: warm and dry Plan Plan Additional Plan 59 year old with past medical history of Hyperlipidemia,Asthma and Hyperurecimia is admitted for evaluation of chest pain. CT negative. Lexiscan showed reversible defects in the anterior and lateral wall. Consulted Cardiology, Dr. Hernandez, who reviewed the Lexiscan reported. Recomended outpatient follow up. Plan Angina equivalent chest pain, RULED OUT ACS Heart score 5 Troponins negative EKG showed prolonged QT interval CTA showed no acute vascular disease Echo showed ejection fraction 65-70 % Lexiscan showed no reversible defect in anterior and lateral wall Consulted patent clerk, Dr. Hernandez reviewed Lexiscan, reported no reversible defects, recommended outpatient follow up continue on Plavix 75 mg, and atorvastatin 80 mg Nitroglycerin p.r.n. Prolong QT interval Patient was previously admitted for Cardiac arrest in july with V-tach, s/p ROSC, during that admission he refused angiography. Initial EKG in ED showed Prolong QT interval and received 1 dose of IV magnesium Avoid medications that increase the QT interval. Potassium and magnesium in normal range. Urine tox negative Incarcerated preperitoneal fat Patient has a tender abdominal mass the site of incisional hernia. Abdominal ultrasound showed incarcerated peritoneal fat. Consulted Dr. Lozano, he requested cardio clearance for surgery, cardio clearance has been done, Dr Marie is informed about this and will do surgery on Sunday. Possible community acquired pneumonia covering Gram-positive and Gram-negative organisms. Patient has a chronic history of cough with greenish sputum Continue Rocephin day 4 and doxycyline stopped. Hyperlipidemia Patient is obese and his BMI is 40.42 LDL: 149, TG 208, Total Cholesterol Continue Home med atrovastatin 80mg PO DAILY CKD stage III Baseline is 1.4 Creatinine 1.49 Monitor CMP Code Status: Full Code DVT Prophylaxis: Heparin Nutrition: Heart healthy diet Disposition: Wll continue to monitor patient,Patient will likely undergo surgery with Dr. Marie. Ramirez Monique PGY1 Internal Medicine Addendum: Completed 3 day course of doxycycline and Day 4 of rocephin for possible community acquired pneumonia. K < 3.8 - Given one dose of Kdur 40meg once. Mg - 1.7 - Gave one dose of magnesium sulfate 2gm iv once. Target K > 4 and mg > 2 considering underlying prolonged QT syndrome to avoid arrhythmias. Creat went up to 1.49 from 1.45 - Started RL @ 50cc/hr. Has atrophic kidneys. Robotic hernia repair by Dr. Lozano on Sunday Date of Service: Nov 08, 2024 Billing Provider: RAJIV HAMMOND MD, SANJAY, ION Nov 08, 2024 10:27 MARGARETTE SANTANA RES Nov 08, 2024 22:05
[2024-11-08] MEDS: magnesium sulf-water 2g/50mL 50 ML IV ONE (12:52)
[2024-11-08] MEDS: potassium Cl 20 mEq SR tablet PO STA (12:52)
[2024-11-08] MEDS: ringers solution, lacted 1,000 ML IV SCH (21:08)
[2024-11-09] VITALS (9 sets, daily range): BP systolic 106–118; BP diastolic 64–77; PULSE 60–75; RESP 12–20; TEMP 97.4–97.9; O2SAT 95–98
[2024-11-09 06:42] LABS: MEAN PLATELET VOLUME 8.7 FL (7.4-10.4); RED CELL DISTRIBUTION WIDTH 14.6 % (11.5-14.5)
[2024-11-09 07:01] LABS: CREATININE 1.49 MG/DL (0.60-1.10); TOTAL CARBON DIOXIDE 26.3 MMOL/L (24-32); eCRCL 45 ML/MIN; eGFR 48 ML/MIN
--- NOTE | 2024-11-09 19:08 | PROGRESS NOTE- Residence ---
Progress Note - Resident Providers to CC Resident Creating Document: RAMIREZ MONIQUE RES CC: RAJIV HAMMOND MD ~ Antibiotic Timeout Antibiotic Ordered?: Yes Subjective I went to see and examined the patient, he said that he dont like man because he said he bad experience when he was 3 year old and he dont want to talk to me, other resident talked to him and patient denied anychest pain,nausea and vomitting. Objective Vital Signs Date Time Temp Pulse Resp B/P (MAP) Pulse Ox O2 Delivery O2 Flow Rate FiO2 11/09/24 15:00 97.7 68 16 118/68 (85) 98 Room Air 11/09/24 08:54 0 21 Result Diagram: 11/09/24 0553 11/09/24 0553 General: awake, alert oriented to place, time, and person HEENT: No pallor present, no icterus, moist mucous membranes Neck: No masses and tenderness Resp: Unlabored. Lungs clear to auscultation bilaterally. Chest: Normal expansion. Cardiovascular: Regular Rate and rhythm, normal S1 and S2 without murmur, rub or gallop Abdomen: Soft and palpable tenders swelling, no organomegaly, no guarding and rigidity, bowel sounds present Musculoskeletal: No arthalgia or myalgia Neuro: No focal weakness in the upper and lower limb muscles, power of the muscles 5/5 bilateral upper and lower extremities, normal reflexes bilaterally. Cranial nerves intact Extremities: No cyanosis,clubbing or edema Skin: Warm and Dry. Psych: Normal affect Plan Plan Additional Plan 59 year old with past medical history of Hyperlipidemia,Asthma and Hyperurecimia is admitted for evaluation of chest pain. CT negative. Lexiscan showed reversible defects in the anterior and lateral wall. Consulted Cardiology, Dr. Hernandez, who reviewed the Lexiscan reported. Recomended outpatient follow up. Plan Incarcerated preperitoneal fat Patient has a tender abdominal mass the site of incisional hernia. Abdominal ultrasound showed incarcerated peritoneal fat. Consulted Dr. Lozano, he requested cardio clearance for surgery, cardio clearance has been done, Dr Marie is informed about this and will do surgery on Sunday. Angina equivalent chest pain, RULED OUT ACS Heart score 5 Troponins negative EKG showed prolonged QT interval CTA showed no acute vascular disease Echo showed ejection fraction 65-70 % Lexiscan showed no reversible defect in anterior and lateral wall Consulted food safety specialist, Dr. Hernandez reviewed Lexiscan, reported no reversible defects, recommended outpatient follow up continue on Plavix 75 mg, and atorvastatin 80 mg Nitroglycerin p.r.n. Prolong QT interval Patient was previously admitted for Cardiac arrest in july with V-tach, s/p ROSC, during that admission he refused angiography. Initial EKG in ED showed Prolong QT interval and received 1 dose of IV magnesium Avoid medications that increase the QT interval. Potassium and magnesium in normal range. Urine tox negative Possible community acquired pneumonia covering Gram-positive and Gram-negative organisms. Patient has a chronic history of cough with greenish sputum Continue Rocephin (day 5), doxycyline stopped. Hyperlipidemia Patient is obese and his BMI is 40.42 LDL: 149, TG 208, Total Cholesterol Continue Home med atrovastatin 80mg PO DAILY CKD stage III Baseline is 1.4 Creatinine 1.49 Monitor CMP Code Status: Full Code DVT Prophylaxis: Heparin Nutrition: Heart healthy diet Disposition: Wll continue to monitor patient,Patient will likely undergo surgery with Dr. Marie. Ramirez Monique PGY1 Internal Medicine Addendum: Patient seen ad examined today. Denies ay new complaints. Surgery in am. NPO after midnight Date of Service: Nov 09, 2024 Billing Provider: RAJIV HAMMOND MD, SANJAY, ION Nov 09, 2024 19:08 MARGARETTE SANTANA RES Nov 09, 2024 22:44
[2024-11-10] VITALS (26 sets, daily range): BP systolic 91–131; BP diastolic 64–88; PULSE 67–99; RESP 9–24; TEMP 97–98; O2SAT 94–99
[2024-11-10 04:31] LABS: MEAN PLATELET VOLUME 8.7 FL (7.4-10.4); RED CELL DISTRIBUTION WIDTH 15.2 % (11.5-14.5)
[2024-11-10 04:37] LABS: CREATININE 1.69 MG/DL (0.60-1.10); TOTAL CARBON DIOXIDE 28.3 MMOL/L (24-32); eCRCL 40 ML/MIN; eGFR 41 ML/MIN
--- NOTE | 2024-11-10 07:31 | RADIOLOGY REPORT ---
CHEST RADIOGRAPH Indication: Pain Technique: Single frontal view of the chest was obtained COMPARISON: DI CHEST,SINGLE VIEW on DOS: 11/05/24, DI CHEST,SINGLE VIEW on DOS: 07/16/24, DI CHEST,SINGL E VIEW on DOS: 06/19/24, DI CHEST,SINGLE VIEW on DOS: 06/30/23, CHEST,SINGLE VIEW on DOS: 03/09/21 FINDINGS: Lines and Tubes: None Lungs: Clear Pleura: No effusion. No pneumothorax. Cardiomediastinal contours: Unremarkable Bones: Unremarkable IMPRESSION: No acute disease.
--- NOTE | 2024-11-10 08:53 | PROGRESS NOTE ---
Progress Note ID Providers to CC ~ Progress Note Progress Note: discussed procedure including risks/benefits/alternatives PARDEEP MATIAS MD Nov 10, 2024 08:53
[2024-11-10] MEDS ORDERED: BUPIVAcaine/PF 2.5mg/ml (0.25%) 10ml vial ONE (10:00)
[2024-11-10] MEDS ORDERED: neostigmine in sterile water inj 5 MG/5 ML syringe IJ ONE (12:01)
[2024-11-10] MEDS ORDERED: glycopyrrolate 0.2mg/ml inj ONE (12:01)
[2024-11-10] MEDS ORDERED: midazolam 1 mg/ML 2ml injection ONE (12:18)
[2024-11-10] MEDS ORDERED: fentaNYL /PF 50mcg/ml 5ml ampule ONE (12:18)
[2024-11-10] MEDS ORDERED: propofol inj 20 ML IV ONE (12:21)
[2024-11-10] MEDS ORDERED: rocuronium 10mg/ml inj IV ONE (12:34)
[2024-11-10] MEDS ORDERED: HYDROmorphone/PF 0.2 MG/ML SYRINGE IV PRN ×2 (13:15)
[2024-11-10] MEDS ORDERED: hydrALAZINE 20mg/ml inj. IV PRN (13:15)
[2024-11-10] MEDS: ringers solution, lacted 1,000 ML IV SCH (13:15)
[2024-11-10] MEDS ORDERED: labetalol 20mg/4ml (5mg/ml) syringe IV PRN (13:15)
[2024-11-10] MEDS ORDERED: ondansetron/PF 4mg/2ml inj IV PRN (13:15)
--- NOTE | 2024-11-10 13:38 | PROGRESS NOTE- Residence ---
Progress Note - Resident Providers to CC Resident Creating Document: PHYLLIS LAZARO RES CC: RAJIV HAMMOND MD ~ Antibiotic Timeout Antibiotic Ordered?: Yes Subjective Patient is seen and examined at bedside. Patient is illicit disappointed with surgery being posted to later in the day. Otherwise patient did not have any subjective complaints or acute overnight events. Patient denies episodes of chest pain, palpitations. Objective Vital Signs Date Time Temp Pulse Resp B/P (MAP) Pulse Ox O2 Delivery O2 Flow Rate FiO2 11/10/24 11:00 97.3 67 16 114/70 (85) 96 Room Air 11/09/24 08:54 0 21 Result Diagram: 11/10/2439911/10/24399 General: Alert, awake, oriented, not in acute distress HEENT: PERRLA, no icterus, pallor, lymphadenopathy, carotid bruit Respiratory system: Bilateral vesicular breath sounds heard, no adventitious breath sounds CVS: S1-S2 heard, no murmurs/rubs/gallop GI: Tender umbilical hernia, Soft, no organomegaly, no guarding/rigidity, bowel sounds present Neuro: No focal neurological deficits present Extremities: No edema cyanosis clubbing/deformities Skin: Warm and dry Assessment Assessment A 59 year old with past medical history of HLD, asthma i presented to the ED in view of chest pain. Patient is admitted for the evaluation management of possible ACS. Patient underwent Lexiscan which showed significant findings. Cardiology recommended outpatient follow up. Patient has been scheduled for repair of incarcerated preperitoneal fat. Plan Plan Incarcerated preperitoneal fat Abdominal ultrasound showed incarcerated peritoneal fat. Patient is scheduled for surgery today with Dr. Lozano Angina equivalent chest pain ACS, ruled out Heart score 5 Stress test as read by the mold preparer reveals no reversible defects Cardiology recommended outpatient follow up, risk factor modification. Appreciate recommendations Continue on Plavix 75 mg, and atorvastatin 80 mg Nitroglycerin p.r.n. Prolong QT interval Patient was previously admitted for Cardiac arrest in july with V-tach, s/p ROSC, during that admission he refused angiography. Initial EKG in ED showed Prolong QT interval and received 1 dose of IV magnesium Avoid medications that increase the QT interval. Potassium and magnesium in normal range. Urine tox negative Possible community acquired pneumonia covering Gram-positive and Gram-negative organisms. Continue IV Rocephin (day 6/7) Hyperlipidemia LDL: 149 Continue atorvastatin 80 mg p.o. daily ZARINA on CKD stage IIIA Baseline is 1.4 Worsening creatinine Increased IV fluids to 100 cc/hour Continue to monitor BMP Code Status: Full Code Nutrition: NPO DVT Prophylaxis: Heparin Disposition: Continue care in PCU, scheduled for hernia repair today Phyllis Lazaro MD Internal Medicine, PGY 2 Date of Service: Nov 10, 2024 Billing Provider: RAJIV HAMMOND MD, SIVA, RES Nov 10, 2024 13:38
[2024-11-10] MEDS ORDERED: dexamethasone sod phosphate 4mg/ml inj. ONE (13:42)
--- NOTE | 2024-11-10 14:11 | OPERATIVE REPORT ---
Operative Report Providers to CC ~ Date of Procedure: Nov 10, 2024 Pre-Operative Diagnosis: recurrengt umbilical hernia Post-Operative Diagnosis SAME as PRE-Op Procedure Performed robo repair recurrengt umbilical hernia-multiple defects-5 cm Surgeon: tatiana moreno Anesthesiologist: Arturo Hidalgo Type of Anesthesia: General Findings: multiple defects containing omentum-5 cm defect Estimated Blood Loss: min Specimen Removed: none PARDEEP MATIAS MD Nov 10, 2024 14:11
[2024-11-10] MEDS: acetaminophen 1,000mg/100ml IV 100 ML IV PRN (14:22)
[2024-11-10] MEDS: morphine 4 MG/ML inj SYRINge IV PRN (14:22)
--- NOTE | 2024-11-10 14:46 | CONSULTATION ---
DATE OF CONSULTATION: 11/07/2024 DICTATING PHYSICIAN: Sujit Lozano MD REASON FOR CONSULTATION: Evaluation for ventral hernia. HISTORY OF PRESENT ILLNESS: The patient is a 59-year-old male with a history of multiple medical problems, admitted on 11/07 with complaints of chest discomfort. On subsequent workup, found to have a ventral hernia. Surgical evaluation is now requested. On further questioning, he complains of some mild abdominal discomfort. There is a mass at the umbilicus. He had a previous umbilical hernia repair. No complaints of nausea or vomiting. PAST MEDICAL HISTORY: Hyperlipidemia, hyperuricemia, asthma, history of a cardiac arrest. PAST SURGICAL HISTORY: Umbilical hernia repair. HOME MEDICATIONS: Colchicine, aspirin, Plavix. ALLERGIES: ALLOPURINOL, PENICILLIN. SOCIAL HISTORY: Denies tobacco use. He is homeless. REVIEW OF SYSTEMS: See H and P. PHYSICAL EXAMINATION: GENERAL: A well-nourished male in no distress. VITAL SIGNS: Unremarkable. HEART: Regular rate and rhythm. LUNGS: Clear to auscultation. ABDOMEN: Shows a periumbilical mass with a well-healed incision. EXTREMITIES: Unremarkable. NEUROLOGIC: Nonfocal. LABORATORY DATA: Include WBC of 4, hematocrit of 41, platelet count is 178. Chemistries unremarkable. Creatinine of 1.45. IMAGING STUDIES: CAT scan reveals a recurrent umbilical hernia containing fat. IMPRESSION: * Recurrent umbilical hernia. * History of cardiac arrest. * Hyperlipidemia. * Hyperuricemia. * Prolonged QT syndrome. RECOMMENDATIONS: Surgical repair when cleared by Cardiology. Sujit Lozano MD TID: [id number] RECEIPT: [id number] VAMSHI/YOK
[2024-11-10] MEDS: HYDROcodone/acetaminophen 10/325mg tab PO PRN (17:38)
[2024-11-10] MEDS: HYDROmorphone inj. 0.5 MG/0.5 ML DISP.SYRIN IV PRN (20:26)
[2024-11-10] MEDS: ondansetron/PF 4mg/2ml inj IV PRN (23:00)
[2024-11-10] MEDS: ipratropium/albuterol 3ml nebule NEB PRN (23:00)
[2024-11-11] VITALS (10 sets, daily range): BP systolic 95–122; BP diastolic 65–80; PULSE 67–89; RESP 10–18; TEMP 96.7–98.1; O2SAT 93–99
--- NOTE | 2024-11-11 03:39 | OPERATIVE REPORT ---
DATE OF SURGERY: 11/10/2024 DICTATING PHYSICIAN: Sujit Lozano MD PREOPERATIVE DIAGNOSIS: Incarcerated recurrent umbilical hernia. POSTOPERATIVE DIAGNOSIS: Incarcerated recurrent umbilical hernia. PROCEDURE PERFORMED: Robotic repair of incarcerated recurrent umbilical hernia. SURGEON: Sujit Lozano MD REGISTERED MEDICAL ASSISTANT: None. ANESTHESIA: General/Dr. Hidalgo. DRAINS: None. INDICATIONS FOR OPERATION: A 59-year-old male with history of previous umbilical hernia repair, who developed a mass in his abdominal wall. CAT scan revealed the presence of recurrent umbilical hernia, taken to surgery for repair. INTRAOPERATIVE FINDINGS: Large amount of fat and has had multiple defects in the abdominal wall. Total defect was 5 cm. DESCRIPTION OF PROCEDURE: The patient was placed supine on the operating table. After induction of general anesthesia and placement of endotracheal tube, the abdomen was prepped and draped. A subxiphoid incision was then made and Cat port placed using open technique. Pneumoperitoneum was begun by insufflation of CO2. Additional ports were placed in left lateral abdomen under laparoscopic vision. Robot was then brought to the field. Camera port docked. Camera placed, camera targeted. Additional ports were docked and instruments placed. Abdomen was then explored. The omentum was mobilized out of the abdominal wall. Sutures of V-Loc were then used to close the fascial defect. Pressure was dropped approximately 6 mmHg to confirm for closure. Once the defect was closed, a 10 x 15 cm piece of mesh was introduced into the abdominal cavity, secured in place with running locking sutures of 2-0 V-Loc placed circumferentially. When mesh was secured in place, withdrawn through the Cat port. All six sutures were removed. Hemostasis was found to be adequate. Robotic instruments were removed. Under laparoscopic vision, final port and camera withdrawn. Abdomen was irrigated with large amount of antibiotic-containing solution using laparoscope. After removing the port, pneumoperitoneum was evacuated. Wounds were closed in layers, skin closed with clips. Dressings applied. The patient was transferred to recovery in stable condition after reversing from general anesthesia. Sujit Lozano MD TID: [id number] RECEIPT: [id number] KB/VUTito/CECILE
[2024-11-11 06:38] LABS: MEAN PLATELET VOLUME 9.0 FL (7.4-10.4); RED CELL DISTRIBUTION WIDTH 15.0 % (11.5-14.5)
[2024-11-11 07:00] LABS: CREATININE 1.57 MG/DL (0.60-1.10); TOTAL CARBON DIOXIDE 26.6 MMOL/L (24-32); eCRCL 43 ML/MIN; eGFR 45 ML/MIN
--- NOTE | 2024-11-11 14:19 | PROGRESS NOTE ---
Progress Note ID Providers to CC ~ Progress Note Progress Note: complains of pain/vss/abd-distended/labs noted a/p s/p hernia repair-slow progress/add PARDEEP Acuna MD Nov 11, 2024 14:19
[2024-11-11] MEDS: metoclopramide 5 mg/ml inj IV PRN (17:38)
--- NOTE | 2024-11-11 23:18 | PROGRESS NOTE- Residence ---
Progress Note - Resident Providers to CC Resident Creating Document: RAMIREZ MONIQUE RES CC: RAJIV HAMMOND MD ~ Antibiotic Timeout Antibiotic Ordered?: Yes Subjective Patient is seen and examined at bedside. I went to see him after surgery, he said he dont want to be seen by man, however saw him with team,told them reports he is having pain on surgical site. Objective Vital Signs Date Time Temp Pulse Resp B/P (MAP) Pulse Ox O2 Delivery O2 Flow Rate FiO2 11/11/24 21:05 80 16 96 Room Air* 0 21 11/11/24 18:00 97.1 112/80 (91) Result Diagram: 11/11/24 0611 11/11/24 0611 Patient is Alert, oriented, coperative Head: Normocephalic with an atraumatic Eyes: Pupils- equal , reacting to light, conjunctiva anicteric Nose and throat: No polyps, septum- normal, no mucosal ulcers Neck: Supple, no lymphadenopathy, no carotid bruit Respiratory: No use of accessory muscles of respiration, Bilateral normal vesicular breath sounds heard. No wheeze, rhochi or creps Cardiac: S1-S2 heard, rythm regular, no gallop/murmur Abdomen: No organomegaly, reports pain on surgical site, bowel sound heard Extremities: no clubbing, no pedal edema, no deformities, peripheral pulses 2+ Skin: warm and dry, no rash, no purpura Assessment Assessment A 59 year old with past medical history of HLD, asthma i presented to the ED in view of chest pain. Patient is admitted for the evaluation management of possible ACS. Patient underwent Lexiscan which showed significant findings. Cardiology recommended outpatient follow up. Patient has been scheduled for repair of incarcerated preperitoneal fat. Plan Plan Incarcerated preperitoneal fat Abdominal ultrasound showed incarcerated peritoneal fat. Patient underwent hernia repair with Dr. Marie. Angina equivalent chest pain ACS, ruled out Heart score 5 Stress test as read by the campaign associate reveals no reversible defects Cardiology recommended outpatient follow up, risk factor modification. Appreciate recommendations Continue on Plavix 75 mg, and atorvastatin 80 mg Nitroglycerin p.r.n. Prolong QT interval Patient was previously admitted for Cardiac arrest in july with V-tach, s/p ROSC, during that admission he refused angiography. Initial EKG in ED showed Prolong QT interval and received 1 dose of IV magnesium Avoid medications that increase the QT interval. Potassium and magnesium in normal range. Urine tox negative Possible community acquired pneumonia covering Gram-positive and Gram-negative organisms. Continue IV Rocephin (day 6/) Hyperlipidemia LDL: 149 Continue atorvastatin 80 mg p.o. daily ZARINA on CKD stage IIIA Baseline is 1.4 Worsening creatinine Increased IV fluids to 100 cc/hour Continue to monitor BMP Code Status: Full Code Nutrition: Clear Liquid Diet. DVT Prophylaxis: Heparin Disposition: Continue care in PCU, will follow diet as per surgeon. Ramirez Monique PGY 1 Resident Internal Medicine. Date of Service: Nov 11, 2024 Billing Provider: RAJIV HAMMOND MD,RAMIREZ, RES Nov 11, 2024 23:18
[2024-11-12] VITALS (8 sets, daily range): BP systolic 124–151; BP diastolic 77–95; PULSE 74–85; RESP 11–18; TEMP 97.7–98.5; O2SAT 95–98
[2024-11-12 09:31] LABS: MEAN PLATELET VOLUME 9.1 FL (7.4-10.4); RED CELL DISTRIBUTION WIDTH 15.1 % (11.5-14.5)
[2024-11-12 09:53] LABS: CREATININE 1.43 MG/DL (0.60-1.10); TOTAL CARBON DIOXIDE 27.6 MMOL/L (24-32); eCRCL 47 ML/MIN; eGFR 50 ML/MIN
[2024-11-12] MEDS: magnesium sulf-water 2g/50mL 50 ML IV ONE (11:38)
--- NOTE | 2024-11-12 18:54 | PROGRESS NOTE- Residence ---
Progress Note - Resident Providers to CC Resident Creating Document: RAMIREZ MONIQUE RES CC: RAJIV HAMMOND MD ~ Antibiotic Timeout Antibiotic Ordered?: No Subjective Patient is seen and examined at bedside. He is not interested to talk to Doctors, was not even answering questions properly. He reports abdominal on surgical site, he is passing flatus but no bowel movement Objective Vital Signs Date Time Temp Pulse Resp B/P (MAP) Pulse Ox O2 Delivery O2 Flow Rate FiO2 11/12/24 16:00 97.8 76 12 124/83 (97) 96 Room Air 11/12/24 12:39 0 21 Result Diagram: 11/12/24 0920 11/12/24 0920 General: awake, alert oriented to place, time, and person HEENT: No pallor present, no icterus, moist mucous membranes Neck: No masses and tenderness Resp: Unlabored. Lungs clear to auscultation bilaterally. Chest: Normal expansion. Cardiovascular: Regular Rate and rhythm, normal S1 and S2 without murmur, rub or gallop Abdomen: Distended abdomen, tender over surgical site, no organomegaly, no guarding and rigidity, bowel sounds are sluggish Neuro: No focal weakness in the upper and lower limb muscles, power of the muscles 5/5 bilateral upper and lower extremities, normal reflexes bilaterally. Cranial nerves intact Extremities: No cyanosis,clubbing or edema Musculoskeletal: No arthalagia or myalgia. Skin: Warm and Dry. Plan Plan A 59 year old with past medical history of HLD, asthma i presented to the ED in view of chest pain. Patient is admitted for the evaluation management of possible ACS. Patient underwent Lexiscan which showed significant findings. Cardiology recommended outpatient follow up. Patient has been scheduled for repair of incarcerated preperitoneal fat. Incarcerated preperitoneal fat Postoperative day 3 Abdominal ultrasound showed incarcerated peritoneal fat. Patient on LR 100ml/hr Patient underwent hernia repair with Dr. Marie today is postop day 3 Angina equivalent chest pain ACS, ruled out Heart score 5 Stress test as read by the stone sandblaster reveals no reversible defects Cardiology recommended outpatient follow up, risk factor modification. Appreciate recommendations Continue on Plavix 75 mg, and atorvastatin 80 mg Nitroglycerin p.r.n. Prolong QT interval Patient was previously admitted for Cardiac arrest in july with V-tach, s/p ROSC, during that admission he refused angiography. Initial EKG in ED showed Prolong QT interval and received 1 dose of IV magnesium Avoid medications that increase the QT interval. Potassium and magnesium in normal range. Urine tox negative Possible community acquired pneumonia covering Gram-positive and Gram-negative organisms Resolved Stop rocephin, received 8/8 doses Hyperlipidemia LDL: 149 Continue atorvastatin 80 mg p.o. daily ZARINA on CKD stage IIIA Baseline is 1.4 Creatinine improved to 1.43 from 1.57 Increased IV fluids to 100 cc/hour Continue to monitor BMP Dewaterer Operator Consulted Patient homeless Code Status: Full Code Nutrition: Clear Liquid Diet. DVT Prophylaxis: Heparin Disposition: Continue care in PCU, will follow diet as per surgeon, likely be dischage tomorrow am. Ramirez Monique PGY 1 Resident Internal Medicine. Addendum: Complaints of abdominal pain. Not allowing to examine abdomen due to pain. Sluggish bowel sounds and passing gas but no bowel movement yet. Advance diet as per surgeon. Possible d/s in a.m Date of Service: Nov 12, 2024 Billing Provider: RAJIV HAMMOND MD, SANJAY, RES Nov 12, 2024 18:54 MARGARETTE SANTANA RES Nov 12, 2024 22:51
--- NOTE | 2024-11-12 19:10 | PROGRESS NOTE ---
Progress Note ID Providers to CC ~ Progress Note Progress Note: doing well/advance po PARDEEP MATIAS MD Nov 12, 2024 19:10
[2024-11-13 02:00] VITALS: BP 111/69; PULSE 76; RESP 11; TEMP 98.7; O2SAT 94
[2024-11-13 06:00] VITALS: BP 112/75; PULSE 76; RESP 8; TEMP 98.2; O2SAT 95
[2024-11-13 07:37] LABS: MEAN PLATELET VOLUME 9.2 FL (7.4-10.4); RED CELL DISTRIBUTION WIDTH 14.9 % (11.5-14.5)
[2024-11-13 08:00] VITALS: RESP 8; O2SAT 95
[2024-11-13 08:09] VITALS: PULSE 73; RESP 16; O2SAT 95
[2024-11-13 08:18] LABS: CREATININE 1.44 MG/DL (0.60-1.10); TOTAL CARBON DIOXIDE 30.6 MMOL/L (24-32); eCRCL 47 ML/MIN; eGFR 50 ML/MIN
[2024-11-13 11:00] VITALS: BP 118/84; PULSE 82; RESP 12; TEMP 97.6; O2SAT 96
[2024-11-13] MEDS ORDERED: metoclopramide 5 mg/ml inj IV ONE (11:50)
[2024-11-13] MEDS ORDERED: CEFD300C3 PO (12:58)
[2024-11-13] MEDS ORDERED: CLOP75TA34 PO (12:58)
[2024-11-13] MEDS ORDERED: LACT1CAP26 PO (12:58)
--- NOTE | 2024-11-13 21:24 | DISCHARGE SUMMARY-Residence ---
Discharge Summary Providers to CC Resident Creating Document: PAN MOINQUE RES CC: RAJIV HAMMOND MD ~ Discharge Summary Admission Diagnosis: ACS,umblical hernia, Hospital Course DATE OF ADMISSION: 11/05/24 DATE OF DISCHARGE: 11/13/24 Discharge Diagnosis\Comment: Possbile Unstable Angina Incarcerated Umblical Hernia, Resolved Hyperlipidemia Community Acquired pneumonia, resolved CKD Prolong QT interval Operations\Procedures: Robotic incarcerated umblical hernia repair. Consultants: Dr.Brusett Loco Complications: none Condition on DC: Stable Discharge Summary: Hospital Course A 59 year old with past medical history of prolong Qt interval, CKD ,hyperlipidemia, hyperuricemia presented to the ED with complain of chest pain and greenish sputum. Patient is admitted for the evaluation management of possible ACS. Troponins were negative and a Lexiscan stress test performed results below, and echocardiogram showed an ejection fraction of 6570%. Patient was started on plavix 75 mg and rosuvastatin 80 mg.In view of cough with greenish sputum he was treated for possible community acquired pneumonia and was treated with rocephin and doxycyline.Additionally he was found to have incarcerated recurrent umblical hernia on abdominal US for which he went surgery on 11/10/[address] Marie He is medically stable for discharge, recommended to Follow up with PCP and Metallurgical Engineering Teacher within two weeks of discharge and Metallurgical Engineering Teacher Follow up with surgeon Dr. Lozano, within 1 week of discharge. Physical Examination on Discharge General: awake, alert oriented to place, time, and person HEENT: No pallor present, no icterus, moist mucous membranes Neck: No masses and tenderness Resp: Unlabored. Lungs clear to auscultation bilaterally. Chest: Normal expansion. Cardiovascular: Regular Rate and rhythm, normal S1 and S2 without murmur, rub or gallop Abdomen: soft and non tonder abdomen, incision dry and clean, no organomegaly, no guarding and rigidity, bowel sounds normal Neuro: No focal weakness in the upper and lower limb muscles, power of the muscles 5/5 bilateral upper and lower extremities, normal reflexes bilaterally. Cranial nerves intact Extremities: No cyanosis,clubbing or edema Musculoskeletal: No arthalagia or myalgia. Skin: Warm and Dry. Labs Wbc: 6.9 Hgb: 12.4 Hct: 37.1 Platelet: 143 Na: 139 K: 3.7 Creatinine 1.44 BUN: 12 Imaging Abdominal US: There is a round this of edematous fat within the subcutaneous tissue at the site of prior hernia repair. The fat is mildly edematous and very tender. This is most consistent with herniated and incarcerated peritoneal fat. The hernia neck is better seen on the CT performed on the same date. Chest/Thorax CTA: Vascular: 1. No evidence of acute vascular disease. 2. Cfrt-og-tlxohivn vascular atherosclerotic disease. Chest: 1. No acute intrathoracic process. Abdomen/Pelvis: 1. No acute abdominal pelvic process. Echo: Normal LV size and wall thickness. Overall systolic function is normal. LVEF is 65-70%. Right ventricle is mild to moderately dilated with adequate function. Lexiscan: Stress test read by radiologist as reversible defects in the anterior and lateral akins. Stress test read by Dr. Abran Hernandez independently as no reversible defects. Discharge Instructions Follow up with PCP within two weeks of discharge. Follow up with surgeon, Dr. Lozano, 1 week of discharge. Wound care per surgeon, avoid lifting heavy weights at least for two weeks from now. Please be aware that you have prolonged QT interval and alert all your physicians when prescribing new medications. We are sending you on atorvastatin 80 mg in view of high LDL. Follow up with Cardiology as outpatient with two weeks of discharge. Return to ER in view of pus discharge, increased abdominal pain, chest pain, shortness of breath, dizziness. *Problems/Diagnosis: (1) Chest pain Status: Resolved Total Time Spent on D/C: > 30 Minutes Date of Service: Nov 13, 2024 Billing Provider: RAJIV HAMMOND MD, SANJAY, RES Nov 13, 2024 21:24
== END 2024-11-13 15:36 | disposition home or self-care (01) | DRG 228 ==
LOC: ER 16:14 → ED HOLD 19:32 → PCU 3S 22:50
PROVIDERS: ADMIT Internal Medicine Critical Care Medicine; ATTEND Family Medicine
PROC: 4A02XM4 Measurement of Cardiac Total Activity, External Approach (ICD-10-PCS; 2024-11-06)
PROC: 3E033HZ Introduction of Radioactive Substance into Peripheral Vein, Percutaneous Approach (ICD-10-PCS; 2024-11-06)
PROC: B4201ZZ Computerized Tomography (CT Scan) of Abdominal Aorta using Low Osmolar Contrast (ICD-10-PCS; 2024-11-06)
PROC: B4241ZZ Computerized Tomography (CT Scan) of Superior Mesenteric Artery using Low Osmolar Contrast (ICD-10-PCS; 2024-11-06)
PROC: B4281ZZ Computerized Tomography (CT Scan) of Bilateral Renal Arteries using Low Osmolar Contrast (ICD-10-PCS; 2024-11-06)
PROC: B42C1ZZ Computerized Tomography (CT Scan) of Pelvic Arteries using Low Osmolar Contrast (ICD-10-PCS; 2024-11-06)
PROC: B42H1ZZ Computerized Tomography (CT Scan) of Bilateral Lower Extremity Arteries using Low Osmolar Contrast (ICD-10-PCS; 2024-11-06)
PROC: 8E0W4CZ Robotic Assisted Procedure of Trunk Region, Percutaneous Endoscopic Approach (ICD-10-PCS; 2024-11-10)
PROC: 0WUF4JZ Supplement Abdominal Wall with Synthetic Substitute, Percutaneous Endoscopic Approach (ICD-10-PCS; principal; 2024-11-10 12:07)
DX: K42.0 Umbilical hernia with obstruction, without gangrene (principal); I25.110 Atherosclerotic heart disease of native coronary artery with unstable angina pectoris; J18.9 Pneumonia, unspecified organism; Z59.00 Homelessness unspecified; E66.01 Morbid (severe) obesity due to excess calories; E78.00 Pure hypercholesterolemia, unspecified; I12.9 Hypertensive chronic kidney disease with stage 1 through stage 4 chronic kidney disease, or unspecified chronic kidney disease; N18.31 Chronic kidney disease, stage 3a; F20.9 Schizophrenia, unspecified; F41.9 Anxiety disorder, unspecified; J44.9 Chronic obstructive pulmonary disease, unspecified; Z88.8 Allergy status to other drugs, medicaments and biological substances; Z88.0 Allergy status to penicillin; Z91.013 Allergy to seafood; Z90.49 Acquired absence of other specified parts of digestive tract; Z68.41 Body mass index [BMI] 40.0-44.9, adult
CPT/HCPCS: 36415; 71045; 71275; 74174; 76705; 78452; 80048; 80053; 80061; 80305; 81003; 82948; 83605; 83735; 83880; 84145; 84484; 85025; 85651; 86140; 87040; 87081; 93005; 93017; 93306; 94640; 94668; 94760; 96365; 99285; A4215; A4615; A4618; A4620; A9500; C1781; G0378; J0131; J0690; J0696; J1100; J1171; J1644; J2250; J2270; J2405; J2470; J2704; J2710; J2765; J2785; J3010; J3490; J7030; J7040; J7042; J7120; J7121; Q9967

== ENCOUNTER 2025-02-22 16:35 | Emergency (ER) | payer MEDICAID ==
[~2025-02-22] VITALS: Ht 165.1 cm; Wt 93.2 kg
[~2025-02-22 16:35] MED LIST changes: -ASPI81TA53 PO; +ATOR-2 PO; -COLC0.6C3 PO; +LACT1CAP26 PO
[2025-02-22 16:41] VITALS: BP 165/98; PULSE 75; RESP 18; TEMP 98.5; O2SAT 99
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
--- NOTE | 2025-02-22 17:36 | RADIOLOGY REPORT ---
CLINICAL INDICATION: trauma TECHNIQUE: 4 radiographic views of the left knee were obtained. COMPARISON: DI KNEE, COMP 4 VW MIN on DOS: 03/05/24, KNEE, COMP 4 VW MIN on DOS: 09/21/21, KNEE, COMP 4 VW MIN on DOS: 01/01/21 FINDINGS/IMPRESSION: There is no evidence of acute fracture or dislocation. Nolk-[id number] tricompartmental degenerative changes of the knee. The alignment is anatomical. There is no radiopaque foreign body.
== END 2025-02-22 17:49 | disposition home or self-care (01) ==
LOC: ER 16:35
DX: S83.92XA Sprain of unspecified site of left knee, initial encounter (principal); E78.00 Pure hypercholesterolemia, unspecified; F20.9 Schizophrenia, unspecified; I10 Essential (primary) hypertension; F41.9 Anxiety disorder, unspecified; J44.9 Chronic obstructive pulmonary disease, unspecified; Z88.0 Allergy status to penicillin; Z90.49 Acquired absence of other specified parts of digestive tract; Z98.890 Other specified postprocedural states; V19.40XA Pedal cycle driver injured in collision with unspecified motor vehicles in traffic accident, initial encounter; Y92.410 Unspecified street and highway as the place of occurrence of the external cause; Y93.55 Activity, bike riding; Y99.8 Other external cause status
CPT/HCPCS: 73564; 99283

== ENCOUNTER 2025-03-07 21:28 | Emergency (ER) | payer MEDICAID ==
[~2025-03-07] VITALS: Ht 165.1 cm; Wt 125.0 kg
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
[2025-03-08 05:08] VITALS: BP 123/91; PULSE 67; RESP 15; TEMP 97.6; O2SAT 97
== END 2025-03-08 08:11 | disposition left against medical advice (07) ==
LOC: ER 21:29
DX: R10.84 Generalized abdominal pain (principal); R11.10 Vomiting, unspecified; J44.9 Chronic obstructive pulmonary disease, unspecified; G89.29 Other chronic pain; F41.9 Anxiety disorder, unspecified; F20.9 Schizophrenia, unspecified; E78.00 Pure hypercholesterolemia, unspecified; I10 Essential (primary) hypertension; Z88.0 Allergy status to penicillin; Z88.8 Allergy status to other drugs, medicaments and biological substances; Z98.890 Other specified postprocedural states; Z90.49 Acquired absence of other specified parts of digestive tract; Z79.899 Other long term (current) drug therapy; Z56.0 Unemployment, unspecified; Z60.2 Problems related to living alone; Z53.21 Procedure and treatment not carried out due to patient leaving prior to being seen by health care provider
CPT/HCPCS: 74176; 99282; 99284